=== PATIENT | male | born 1950 | race Caucasian/White ===

== ENCOUNTER 2017-09-22 15:50 | Observation (INO) | payer MEDICARE, OTHER, SELFPAY ==
[2017-09-22] VITALS (7 sets, daily range): BP systolic 119–192; BP diastolic 68–102; PULSE 55–74; RESP 10–20; TEMP 36.7–36.8; O2SAT 94–99; BMI 31.3
--- NOTE | 2017-09-22 16:12 | ED.CHESTPAIN ---
HPI - Chest Pain General Chief Complaint: Chest Pain Stated Complaint: CHEST PAINS Time Seen by Provider: 09/22/17 15:52 Source: patient Mode of arrival: ambulatory Limitations: no limitations History of Present Illness HPI narrative: 67-year-old male with history of hypertension presents to the emergency department with a chief complaint of left anterior chest pain with radiation to his shoulder. He had a few episodes of the pain while at rest yesterday and a few more earlier today but his pain has been persistent and more intense since about 2 o'clock. He denies provocation or palliation of his pain. He denies associated symptoms such as dizziness, weakness or lightheadedness. He denies shortness of breath, diaphoresis or nausea. He took 2 full-dose aspirin prior to coming in and called his primary who directed him here. He did recently drive from here to [facility] and back after buying a new motor home complaint: chest pain Onset (ago): hour(s) Duration: intermittent Onset: during rest Pain location: left chest Severity: moderate Quality: aching and heaviness Pain radiation: none Relieving factors: nothing Exacerbating factors: nothing Context: recent travel Treatments prior to arrival chest pain: aspirin Related Data Home Medications Medication Instructions Recorded Confirmed ASPIRIN (#ASPIRIN CHILDREN'S) #0 06/14/11 lisinopril 20 mg PO QDAY #0 05/31/16 Allergies Allergy/AdvReac Type Severity Reaction Status Date / Time No Known Drug Allergies Allergy Verified 09/22/17 16:09 Review of Systems Review of Systems All systems reviewed & are unremarkable except as noted in HPI and below Constitutional Denies chills, Denies fever(s), Denies lethargy and Denies weakness Eyes Denies change in vision, Denies eye discharge, Denies irritation and Denies loss of vision ENT Ears, Nose, Mouth, and Throat: Denies change in voice, Denies neck pain and Denies sore throat Cardiovascular Reports chest pain, Denies irregular heart rhythm, Denies lightheadedness, Denies palpitations, Denies dyspnea, Denies dyspnea on exertion and Denies orthopnea Respiratory Denies cough, Denies dyspnea, Denies dyspnea on exertion and Denies wheezing Gastrointestinal Gastrointestinal: Denies abdominal pain, Denies change in bowel habits, Denies diarrhea, Denies nausea and Denies vomiting Genitourinary Denies hematuria, Denies flank pain, Denies urinary incontinence and Denies urinary urgency Musculoskeletal Denies neck pain Integumentary/Breasts Denies pruritus, Denies erythema, Denies rash and Denies wounds Neurologic Denies confusion, Denies loss of vision and Denies weakness Psychiatric Denies anxiety, Denies confusion, Denies depression, Denies homicidal ideation and Denies suicidal ideation Endocrine Denies palpitations Hematologic/Lymphatic Denies easy bruising Allergic/Immunologic Denies wheezing PFSH Medical History Anemia (Acute) HTN (hypertension) (Acute) Shingles (Acute) Exam Narrative Exam Narrative: 67-year-old male resting comfortably in no obvious distress Initial Vital Signs Initial Vital Signs: Vital Signs Temperature 98.2 F 09/22/17 16:05 Pulse Rate 74 09/22/17 16:05 Respiratory Rate 20 09/22/17 16:05 Blood Pressure 192/102 H 09/22/17 16:05 Pulse Oximetry 94 09/22/17 16:05 Const General: cooperative, well developed and anxious Nutritional Appearance: well nourished Orientation: alert, awake, oriented x3 and not confused HENRI Head: normocephalic and atraumatic Ears: external ears normal and TM's normal bilaterally Nose: external nose normal and No nasal discharge Face and sinus: sinuses nontender, face symmetric, no sinus tenderness and No dry mucous membranes Mouth: oral mucosae normal and moist mucous membranes Teeth and gingiva: dentition normal Throat: tonsils normal and uvula midline Chest Chest: normal inspection of the chest Cardio Rate: regular rate Rhythm: regular rhythm Heart Sounds: no click, no gallops, no murmurs and no rubs Pulses: normal peripheral pulses GI Inspection: non-distended Palpation: soft, no hepatosplenomegaly, No guarding, No pulsatile mass and No tender Auscultation: normal bowel sounds Back/Spine/Pelvis Back: No CVA tenderness Cervical Spine: cervical ROM normal and No pain with cervical ROM Thoracic/Lumbar Spine: thoracic and lumbar spine normal to inspection Skin General: no rashes or lesions noted, No jaundice and No petechiae Extrem General: full ROM, no clubbing, cyanosis or edema, no pedal edema and no calf tenderness Scores HEART Score Heart Score history: Moderately Suspicious Heart Score EKG: Normal Heart Score Age: > or = 65 years old Heart Score risk factors: 1-2 risk factors Heart Score troponin: < or = to normal limit Heart Score Total: 4 Course Orders Ordered: ED Orders 09/22/17 16:00 Complete Blood Count AUTO DIFF Stat Comprehensive Metabolic Panel Stat D Dimer Stat Lipase Stat Troponin with CK Cardiac Panel Stat 09/22/17 16:11 XR chest 1V Stat EKG-12 Lead Stat Sodium Chloride (Normal Saline 0.9%) 1,000 mls @ 150 mls/hr IV CONT LAUREEN Nitroglycerin (Nitrostat) 0.4 mg SL [id number] PRN PRN Reason: Chest Pain Discontinued Medications Aspirin (Aspirin Chew) 324 mg PO NOW ONE Stop: 09/22/17 16:12 Last Admin: 09/22/17 16:20 Dose: Not Given Consultations Consultation #1: Dr. Rg has seen the patient at the bedside and is happy to bring onto his service Time: 17:28 Vital Signs - 8 hr 09/22/17 16:05 09/22/17 16:30 09/22/17 17:00 Temperature 98.2 F Pulse Rate 74 60 59 L Respiratory Rate 20 11 L 10 L Blood Pressure 192/102 H Blood Pressure [Left Arm] 177/83 H 158/77 H Pulse Oximetry 94 97 97 09/22/17 17:48 09/22/17 17:52 Temperature Pulse Rate 55 L 55 L Respiratory Rate 16 Blood Pressure 123/75 H Blood Pressure [Left Arm] 123/75 H Pulse Oximetry 99 MDM - Chest Pain Differential Diagnosis Likely unstable angina pectoris, atypical chest pain, st elevation myocardial infarction, costochondritis and chest pain Medical Records Data Attestation: I reviewed the patient's medical records. Lab Data Result diagrams: 09/22/17 16:00 09/22/17 16:00 Lab Results 09/22/17 09/22/17 09/22/17 Range/Units 16:00 16:00 16:00 WBC 4.9 (4.5-11.0) X10^3/uL RBC 3.28 L (4.5-5.9) X10^6/uL Hgb 11.9 L (13.5-17.5) g/dL Hct 33.7 L (41-53) % MCV 102.5 H (80-100) fL MCH 36.2 H (26-34) PG MCHC 35.3 (30-36) % RDW 14.5 (11.6-14.8) % Plt Count 316 (150-400) X10^3/uL Neut % (Auto) 39.1 L (50-75) % Lymph % (Auto) 53.1 H (25-40) % [place] % (Auto) 6.4 (3-14) % Eos % (Auto) 1.1 L (2-4) % Baso % (Auto) 0.3 (0-2) % Neut # (Auto) 1900 L (7375-4584) /uL D-Dimer < 200 (<230) ng/mL Sodium 144 (137-145) mmol/L Potassium 4.2 (3.4-5.1) mmol/L Chloride 107 (98-107) mmol/L Carbon Dioxide 24 (22-32) mmol/L BUN 22 H (9-20) mg/dL Creatinine 1.10 (0.66-1.25) mg/dL Estimated GFR > 60.0 (>60) mL/min BUN/Creatinine Ratio 20.0 (6-22) Glucose 100 (80-110) mg/dL Calcium 9.0 (8.4-10.2) mg/dL Total Bilirubin 0.4 (0.2-1.3) mg/dL AST 33 (17-59) IU/L ALT 37 (21-72) IU/L Alkaline Phosphatase 66 (38-126) U/L Total Creatine Kinase 22 L (55-170) U/L Troponin I < 0.012 (0.01-0.034) ng/mL Total Protein 9.8 H* (6.3-8.2) g/dL Albumin 4.1 (3.5-5.0) g/dL Globulin 5.7 H (1.7-4.1) g/dL Albumin/Globulin Ratio 0.7 L (1.0-2.8) Lipase 64 (23-300) U/L Imaging Data Chest x-ray: Radiologist's impression: PROCEDURE: XR CHEST 1V INDICATIONS: Chest Pain TECHNIQUE: One view of the chest was acquired. COMPARISON: [facility], , CHEST 2 VIEW, 06/14/2011, 11:35. FINDINGS: Surgical changes and devices: None. Lungs and pleura: No pleural effusions or pneumothorax. Lungs are clear. Mediastinum: Mediastinal contours appear normal. Heart size is normal. Bones and chest wall: No suspicious bony lesions. Overlying soft tissues appear unremarkable. IMPRESSION: No acute cardiopulmonary abnormality Dictated by: Francisco Butt M.D. on 09/22/2017 at 16:23 Approved by: Francisco Butt M.D. on 09/22/2017 at 16:23 ECG Data Attestation: I personally reviewed and interpreted this ECG as follows: Prior ECG tracings: available for review Interpretation: Normal sinus rhythm at 64 without signs of ischemia or ectopy. No ST segmental change. No T-wave inversion or hyper acuity Discharge Plan Departure Patient Disposition: Admitted as Observation Clinical Impression: Chest pain Interventions: ED Discharge Assessment Last Done: 09/22/17 17:52 Admit Date/Time: 09/22/17 17:52 Admit Provider: Dawood Rg
[2017-09-22 16:24] LABS: Add Manual Diff / Slide Review NO; Basophils Percent Auto 0.3 % (0-2); Eosinophils Percent Auto 1.1 % (2-4); Hematocrit 33.7 % (41-53); Hemoglobin 11.9 g/dL (13.5-17.5); Lymphocytes Percent Auto 53.1 % (25-40); Mean Corpuscular HGB Conc 35.3 % (30-36); Mean Corpuscular Hemoglobin 36.2 PG (26-34); Mean Corpuscular Volume 102.5 fL (80-100); Monocytes Percent Auto 6.4 % (3-14); Neutrophils Absolute Auto 1900 /uL (3000-5900); Neutrophils Percent Auto 39.1 % (50-75); Platelet Count 316 X10^3/uL (150-400); Red Blood Cell Count 3.28 X10^6/uL (4.5-5.9); Red Cell Distribution Width 14.5 % (11.6-14.8); White Blood Cell Count 4.9 X10^3/uL (4.5-11.0)
[2017-09-22 16:30] LABS: Alanine Aminotransferase 37 IU/L (21-72); Albumin 4.1 g/dL (3.5-5.0); Albumin Globulin Ratio 0.7 (1.0-2.8); Alkaline Phosphatase 66 U/L (38-126); Aspartate Aminotransferase 33 IU/L (17-59); Bilirubin Total 0.4 mg/dL (0.2-1.3); Blood Urea Nitrogen 22 mg/dL (9-20); Carbon Dioxide 24 mmol/L (22-32); Chloride 107 mmol/L (98-107); Creatine Kinase 22 U/L (55-170); Estimated Glomerular Filt Rate > 60.0 mL/min (>60); Globulin 5.7 g/dL (1.7-4.1); Glucose 100 mg/dL (80-110); HEMOLYSIS < 15 (0-50); Lipase 64 U/L (23-300); Potassium 4.2 mmol/L (3.4-5.1); Sodium 144 mmol/L (137-145)
[2017-09-22 16:36] LABS: D Dimer < 200 ng/mL (<230)
[2017-09-22 16:43] LABS: Total Protein 9.8 g/dL (6.3-8.2)
[2017-09-22 16:44] LABS: Troponin I < 0.012 ng/mL (0.01-0.034)
--- NOTE | 2017-09-22 18:07 | PM.HP.1 ---
History of Present Illness Date Patient Seen: 09/22/17 Time Patient Seen: 18:07 Chief complaint: CHEST PAINS Narrative: Patient is a 67-year-old male with history of hypertension, hyperlipidemia presented to emergency department with recurrent chest pain. Starting yesterday afternoon he began to experience intermittent left-sided chest discomfort. Episodes would last up to 20 min and of moderate intensity. There was some radiation to the shoulder and neck. It is described as a pressure sensation. The discomfort subsided during the night. This morning he had more recurrence of the pain which again occurred intermittently during the day prompting him to come to the ER for evaluation. Patient has not had similar pain in the past. He denies exertional symptoms. He felt a little warm with these episodes but no diaphoresis, nausea or, vomiting or epigastric pain. He quit smoking about 10 years ago. Father with coronary disease history and in 70s. Patient History Medical History Anemia (Acute) HTN (hypertension) (Acute) Hyperlipidemia (Acute) Shingles (Acute) Family & Social History Safety & Behavioral: Feels Safe in Current Yes Environment Been Physically Hurt or No Threatened By a Person Tobacco & Substance use: alcohol intake frequency a few times a week Substance Use Type does not use Meds Home Medications Medication Instructions Recorded Confirmed Type ASPIRIN (#ASPIRIN CHILDREN'S) #0 06/14/11 History lisinopril 20 mg PO QDAY #0 05/31/16 History Allergies Allergy/AdvReac Type Severity Reaction Status Date / Time No Known Drug Allergies Allergy Verified 09/22/17 16:09 Review of Systems Review of Systems All systems reviewed & are unremarkable except as noted in HPI and below Exam Vital Signs (past 8 hours): Vital Signs - 8 hr 09/22/17 16:05 09/22/17 16:30 09/22/17 17:00 Temperature 98.2 F Pulse Rate 74 60 59 L Respiratory Rate 20 11 L 10 L Blood Pressure 192/102 H Blood Pressure [Left Arm] 177/83 H 158/77 H Pulse Oximetry 94 97 97 09/22/17 17:48 09/22/17 17:52 Temperature Pulse Rate 55 L 55 L Respiratory Rate 16 Blood Pressure 123/75 H Blood Pressure [Left Arm] 123/75 H Pulse Oximetry 99 Pulse Oximetry 99 Oxygen Delivery Method Room Air Narrative Exam Narrative: GENERAL: This is an alert well-nourished, well-developed patient, in no apparent distress. HEAD: Atraumatic. Normocephalic. EYES: Pupils equal, round and reactive. Extraocular motions intact. No scleral icterus. No injection or drainage. OROPHARYNX: moist mucosa NECK: Trachea midline. No JVD or lymphadenopathy. CARDIOVASCULAR: Regular rate and rhythm without murmurs, gallops, or rubs. RESPIRATORY: Clear to auscultation bilaterally. GASTROINTESTINAL: Abdomen nondistended, soft, non-tender. No hepato-splenomegaly, or palpable masses. EXTREMITIES: No edema. NEUROLOGICAL: Alert, well oriented, speech is intact, normal bilateral upper and lower extremity strength SKIN: warm, dry, no rash Objective Labs Result Diagrams: 09/22/17 16:00 09/22/17 16:00 Labs: EKG: Normal sinus rhythm, no significant ST or T-wave abnormality. Repeat EKG the same. Chest x-ray: No acute findings Laboratory Results - last 24 hr 09/22/17 09/22/17 09/22/17 16:00 16:00 16:00 WBC 4.9 RBC 3.28 L Hgb 11.9 L Hct 33.7 L MCV 102.5 H MCH 36.2 H MCHC 35.3 RDW 14.5 Plt Count 316 Neut % (Auto) 39.1 L Lymph % (Auto) 53.1 H [place] % (Auto) 6.4 Eos % (Auto) 1.1 L Baso % (Auto) 0.3 Neut # (Auto) 1900 L D-Dimer < 200 Sodium 144 Potassium 4.2 Chloride 107 Carbon Dioxide 24 BUN 22 H Creatinine 1.10 Estimated GFR > 60.0 BUN/Creatinine Ratio 20.0 Glucose 100 Calcium 9.0 Total Bilirubin 0.4 AST 33 ALT 37 Alkaline Phosphatase 66 Total Creatine Kinase 22 L Troponin I < 0.012 Total Protein 9.8 H* Albumin 4.1 Globulin 5.7 H Albumin/Globulin Ratio 0.7 L Lipase 64 Assessment & Plan Plan: Assessment/Plan Narrative: 1. Chest pain: Patient with 24 hr history of intermittent chest pain episodes lasting 20 min. He has cardiac risk factors of hypertension, hyperlipidemia. Initial EKG and enzymes negative x2. He is currently pain-free. He is admitted to observation services to determine whether this is cardiac nature of chest pain. Plan: Telemetry monitoring, repeat 8 hr troponin x2, EKG for recurrent chest pain, EKG in a.m.. Patient received aspirin in ED. Continue on his lisinopril per home routine. Check lipid panel.
--- NOTE | 2017-09-22 18:15 | P.HP_ITS ---
History of Present Illness Date Patient Seen: 09/22/17 Time Patient Seen: 18:07 Chief complaint: CHEST PAINS Narrative: Patient is a 67-year-old male with history of hypertension, hyperlipidemia presented to emergency department with recurrent chest pain. Starting yesterday afternoon he began to experience intermittent left-sided chest discomfort. Episodes would last up to 20 min and of moderate intensity. There was some radiation to the shoulder and neck. It is described as a pressure sensation. The discomfort subsided during the night. This morning he had more recurrence of the pain which again occurred intermittently during the day prompting him to come to the ER for evaluation. Patient has not had similar pain in the past. He denies exertional symptoms. He felt a little warm with these episodes but no diaphoresis, nausea or, vomiting or epigastric pain. He quit smoking about 10 years ago. Father with coronary disease history and in 70s. Patient History Medical History Anemia (Acute) HTN (hypertension) (Acute) Hyperlipidemia (Acute) Shingles (Acute) Family & Social History Safety & Behavioral: Feels Safe in Current Yes Environment Been Physically Hurt or No Threatened By a Person Tobacco & Substance use: alcohol intake frequency a few times a week Substance Use Type does not use Meds Home Medications Medication Instructions Recorded Confirmed Type ASPIRIN (#ASPIRIN CHILDREN'S) #0 06/14/11 History lisinopril 20 mg PO QDAY #0 05/31/16 History Allergies Allergy/AdvReac Type Severity Reaction Status Date / Time No Known Drug Allergies Allergy Verified 09/22/17 16:09 Review of Systems Review of Systems All systems reviewed & are unremarkable except as noted in HPI and below Exam Vital Signs (past 8 hours): Vital Signs - 8 hr 3 09/22/17 16:05 09/22/17 16:30 09/22/17 17:00 Temperature 98.2 F Pulse Rate 74 60 59 L Respiratory Rate 20 11 L 10 L Blood Pressure 192/102 H Blood Pressure [Left Arm] 177/83 H 158/77 H Pulse Oximetry 94 97 97 3 09/22/17 17:48 09/22/17 17:52 Temperature Pulse Rate 55 L 55 L Respiratory Rate 16 Blood Pressure 123/75 H Blood Pressure [Left Arm] 123/75 H Pulse Oximetry 99 Pulse Oximetry 99 Oxygen Delivery Method Room Air Narrative Exam Narrative: GENERAL: This is an alert well-nourished, well-developed patient , in no apparent distress. HEAD: Atraumatic. Normocephalic. EYES: Pupils equal, round and reactive. Extraocular motions intact. No scleral icterus. No injection or drainage. OROPHARYNX: moist mucosa NECK: Trachea midline. No JVD or lymphadenopathy. CARDIOVASCULAR: Regular rate and rhythm without murmurs, gallops, or rubs. RESPIRATORY: Clear to auscultation bilaterally. GASTROINTESTINAL: Abdomen nondistended, soft, non-tender. No hepato- splenomegaly, or palpable masses. EXTREMITIES: No edema. NEUROLOGICAL: Alert, well oriented, speech is intact, normal bilateral upper and lower extremity strength SKIN: warm, dry, no rash Objective Labs Result Diagrams: 09/22/17 16:00 09/22/17 16:00 Labs: EKG: Normal sinus rhythm, no significant ST or T-wave abnormality. Repeat EKG the same. Chest x-ray: No acute findings Laboratory Results - last 24 hr 09/22/17 09/22/17 09/22/17 16:00 16:00 16:00 WBC 4.9 RBC 3.28 L Hgb 11.9 L Hct 33.7 L MCV 102.5 H MCH 36.2 H MCHC 35.3 RDW 14.5 Plt Count 316 Neut % (Auto) 39.1 L Lymph % (Auto) 53.1 H [place] % (Auto) 6.4 Eos % (Auto) 1.1 L Baso % (Auto) 0.3 Neut # (Auto) 1900 L D-Dimer < 200 Sodium 144 Potassium 4.2 Chloride 107 Carbon Dioxide 24 BUN 22 H Creatinine 1.10 Estimated GFR > 60.0 BUN/Creatinine Ratio 20.0 Glucose 100 Calcium 9.0 Total Bilirubin 0.4 AST 33 ALT 37 Alkaline Phosphatase 66 Total Creatine Kinase 22 L Troponin I < 0.012 Total Protein 9.8 H* Albumin 4.1 Globulin 5.7 H Albumin/Globulin Ratio 0.7 L Lipase 64 Assessment & Plan Plan: Assessment/Plan Narrative: 1. Chest pain: Patient with 24 hr history of intermittent chest pain episodes lasting 20 min. He has cardiac risk factors of hypertension, hyperlipidemia. Initial EKG and enzymes negative x2. He is currently pain-free. He is admitted to observation services to determine whether this is cardiac nature of chest pain. Plan: Telemetry monitoring, repeat 8 hr troponin x2, EKG for recurrent chest pain, EKG in a.m.. Patient received aspirin in ED. Continue on his lisinopril per home routine. Check lipid panel.
[2017-09-22 19:25] LABS: Cholesterol 205 mg/dL (140-199); HDL Cholesterol 25 mg/dL (40-60); LDL Cholesterol Calculated 141 mg/dL (<100); Triglycerides 193 mg/dL (35-150)
[2017-09-22 23:41] LABS: Troponin I < 0.012 ng/mL (0.01-0.034)
[2017-09-23 00:16] VITALS: O2SAT 96
[2017-09-23 00:17] VITALS: BP 130/66; PULSE 60; RESP 15; TEMP 36.4; O2SAT 96
[2017-09-23 05:36] VITALS: BP 139/95; PULSE 60; RESP 18; O2SAT 94
[2017-09-23 07:42] VITALS: BP 139/91; PULSE 55; RESP 16; TEMP 36.2; O2SAT 98
[2017-09-23] MEDS: ASPIRIN EC 81 MG TABLET PO (08:14)
[2017-09-23] MEDS: LISINOPRIL 20 MG TABLET PO (08:14)
[2017-09-23 08:45] LABS: Troponin I < 0.012 ng/mL (0.01-0.034)
--- NOTE | 2017-09-23 10:45 | PC.NURSE ---
discharge instructions reviewed with patient, patient states understanding and has no further questions or concerns. iv and tele dc'd. labs drawn prior to discharge as ordered by Dr. Rg. Patient instructed to schedule follow up with pcp in 1 week. patient escorted out by [employer], ambulatory, with all belongings.
--- NOTE | 2017-09-23 12:06 | CM.DANOTE ---
DCP: assessment: Case received, EMR reviewed and spoke with CORRINA Rachel. DCP template completed with info currently available. Pt is a 67 year old male who admitted yesterday evening to care of hospitalist team after experiencing s/s chest pain. PCP: Dr. Mijares Payer: Medicare and [facility]. Went to room to check in with pt but he had already left. CORRINA Rachel notes pt was very eager/impatient to see Dr. Rg this morning and once ok'd for d/c he wished to leave [facility]. He did go home at 1048 with his and will see PCP in a week.
--- NOTE | 2017-09-23 12:46 | PM.DS.1 ---
History of Present Illness Chief complaint: CHEST PAINS Narrative: Patient is a 67-year-old male with history of hypertension, hyperlipidemia presented to emergency department with recurrent chest pain. Starting yesterday afternoon he began to experience intermittent left-sided chest discomfort. Episodes would last up to 20 min and of moderate intensity. There was some radiation to the shoulder and neck. It is described as a pressure sensation. The discomfort subsided during the night. This morning he had more recurrence of the pain which again occurred intermittently during the day prompting him to come to the ER for evaluation. Patient has not had similar pain in the past. He denies exertional symptoms. He felt a little warm with these episodes but no diaphoresis, nausea or, vomiting or epigastric pain. He quit smoking about 10 years ago. Father with coronary disease history and in 70s. Discharge Providers Date of admission: 09/22/17 17:52 Discharge provider: Dawood Rg MD Summary Discharge Diagnosis: 1. Chest pain syndrome 2. Hyperlipidemia 3. Chronic anemia, rule out multiple myeloma or related disorder Hospital Course: Patient had serial negative enzymes and EKGs. Telemetry remained normal. He did not have recurrence of his chest discomfort overnight and feels ready to go home this morning. He has significant dyslipidemia with HDL 25 and LDL 140. He is advised to discuss starting on statin therapy with Dr. Mijares. He is advised to have outpatient stress test. Instructed to return to emergency department for any recurrent chest discomfort. In addition, patient has chronic macrocytic anemia. He was noted to have very high serum protein 9.8. Additional blood work ordered for immunofixation, electrophoresis and serum free light chain assay to evaluate for multiple myeloma and related disorders. Patient is informed of this additional blood work and to follow up with Dr. Mijares to review these results. Status at Discharge Functional status at discharge: independent ambulation Overall status at discharge: patient is back to baseline Exam Vital Signs (past 8 hours): Vital Signs - 8 hr 09/23/17 05:36 09/23/17 07:42 Temperature 97.2 F L Pulse Rate 60 55 L Respiratory Rate 18 16 Blood Pressure 139/95 H 139/91 H Pulse Oximetry 94 98 Pulse Oximetry 98 Oxygen Delivery Method Room Air Oxygen Flow Rate 0 Objective Labs Result Diagrams: 09/22/17 16:00 09/22/17 16:00 Labs: Laboratory Results - last 24 hr 09/22/17 09/22/17 09/22/17 16:00 16:00 16:00 WBC 4.9 RBC 3.28 L Hgb 11.9 L Hct 33.7 L MCV 102.5 H MCH 36.2 H MCHC 35.3 RDW 14.5 Plt Count 316 Neut % (Auto) 39.1 L Lymph % (Auto) 53.1 H [place] % (Auto) 6.4 Eos % (Auto) 1.1 L Baso % (Auto) 0.3 Neut # (Auto) 1900 L D-Dimer < 200 Sodium 144 Potassium 4.2 Chloride 107 Carbon Dioxide 24 BUN 22 H Creatinine 1.10 Estimated GFR > 60.0 BUN/Creatinine Ratio 20.0 Glucose 100 Calcium 9.0 Total Bilirubin 0.4 AST 33 ALT 37 Alkaline Phosphatase 66 Total Creatine Kinase 22 L Troponin I < 0.012 Total Protein 9.8 H* Albumin 4.1 Globulin 5.7 H Albumin/Globulin Ratio 0.7 L Triglycerides Cholesterol LDL Cholesterol, Calc HDL Cholesterol Lipase 64 09/22/17 09/22/17 09/23/17 16:00 23:11 07:14 WBC RBC Hgb Hct MCV MCH MCHC RDW Plt Count Neut % (Auto) Lymph % (Auto) [place] % (Auto) Eos % (Auto) Baso % (Auto) Neut # (Auto) D-Dimer Sodium Potassium Chloride Carbon Dioxide BUN Creatinine Estimated GFR BUN/Creatinine Ratio Glucose Calcium Total Bilirubin AST ALT Alkaline Phosphatase Total Creatine Kinase Troponin I < 0.012 < 0.012 Total Protein Albumin Globulin Albumin/Globulin Ratio Triglycerides 193 H Cholesterol 205 H LDL Cholesterol, Calc 141 H HDL Cholesterol 25 L Lipase Discharge Plan Discharge Plan Patient Disposition: Home, Self-Care Provider Discharge Instructions Diet: Diet as Tolerated Discharge Data Attending Provider: Dawood Rg Admit Date/Time: 09/22/17 17:52 Discharges patient from system. Discharge Date/Time: 09/23/17 10:35 Quality VTE Deep Vein Thrombosis/Pulmonary Embolism Present on Admission: No
[2017-09-26 16:05] LABS: Free Kappa/ Lambda Ratio 85.24 (0.26-1.65); Free Lambda 3.5 mg/L (5.7-26.3)
[2017-10-02 14:26] LABS: Abnormal Protein Band 1 3.5 g/dL (NONE DETECTED); Albumin 4.2 g/dL (3.8-4.8); Alpha 1 Globulin 0.3 g/dL (0.2-0.3); Alpha 2 Globulin 0.7 g/dL (0.5-0.9); Beta 1 Globulin 0.4 g/dL (0.4-0.6); Gamma Globulin 3.7 g/dL (0.8-1.7); Protein, Total 9.6 g/dL (6.1-8.1)
== END 2017-09-23 10:35 | disposition home or self-care (01) ==
LOC: ED 17:32 → AC 09-23 10:15
PROVIDERS: Admitting Provider Internal Medicine; Emergency Provider Emergency Medicine; Visit Provider Internal Medicine
DX: R07.9 Chest pain, unspecified (principal); I10 Essential (primary) hypertension; D64.9 Anemia, unspecified; E78.5 Hyperlipidemia, unspecified
CPT/HCPCS: 36415; 36591; 36592; 71045; 80053; 80061; 82550; 82553; 82784; 83690; 83883; 84155; 84165; 84484; 85025; 85379; 86334; 93005; 93041; 99283; 99285; G0378

== ENCOUNTER → 2017-10-14 10:31 | Outpatient (CLI) | payer MEDICARE, OTHER, SELFPAY ==
[2017-09-22 18:31] VITALS: BMI 31.3
[2017-10-14 10:53] LABS: Add Manual Diff / Slide Review NO; Basophils Percent Auto 0.3 % (0-2); Eosinophils Percent Auto 0.9 % (2-4); Hemoglobin 11.2 g/dL (13.5-17.5); Lymphocytes Percent Auto 57.7 % (25-40); Mean Corpuscular HGB Conc 35.1 % (30-36); Mean Corpuscular Hemoglobin 35.8 PG (26-34); Mean Corpuscular Volume 101.9 fL (80-100); Monocytes Percent Auto 5.4 % (3-14); Neutrophils Absolute Auto 1400 /uL (3000-5900); Neutrophils Percent Auto 35.7 % (50-75); Platelet Count 282 X10^3/uL (150-400); Red Blood Cell Count 3.14 X10^6/uL (4.5-5.9); Red Cell Distribution Width 14.4 % (11.6-14.8); White Blood Cell Count 3.8 X10^3/uL (4.5-11.0)
[2017-10-16 11:48] LABS: Beta-2-Microglobulin 4.12 mg/L (< 2.52)
== END ==
PROVIDERS: Visit Provider Internal Medicine
DX: D47.2 Monoclonal gammopathy (principal); D64.9 Anemia, unspecified
CPT/HCPCS: 36415; 82232; 85025

== ENCOUNTER → 2017-10-24 12:13 | Outpatient (CLI) | payer MEDICARE, OTHER, SELFPAY ==
[2017-09-22 18:31] VITALS: BMI 31.3
[2017-10-24 12:49] LABS: Add Manual Diff / Slide Review NO; Basophils Percent Auto 0.2 % (0-2); Eosinophils Percent Auto 0.7 % (2-4); Hematocrit 32.6 % (41-53); Hemoglobin 11.2 g/dL (13.5-17.5); Lymphocytes Percent Auto 52.4 % (25-40); Mean Corpuscular HGB Conc 34.3 % (30-36); Mean Corpuscular Hemoglobin 35.4 PG (26-34); Mean Corpuscular Volume 103.2 fL (80-100); Monocytes Percent Auto 5.4 % (3-14); Neutrophils Absolute Auto 2100 /uL (3000-5900); Neutrophils Percent Auto 41.3 % (50-75); Platelet Count 308 X10^3/uL (150-400); Red Blood Cell Count 3.16 X10^6/uL (4.5-5.9); White Blood Cell Count 5.1 X10^3/uL (4.5-11.0)
[2017-10-24 13:56] LABS: Vitamin B12 458 pg/mL (239-931)
== END ==
PROVIDERS: Visit Provider Internal Medicine
DX: D64.9 Anemia, unspecified (principal)
CPT/HCPCS: 36415; 82607; 85025

== ENCOUNTER → 2017-11-10 16:03 | Outpatient (CLI) | payer MEDICARE, OTHER, SELFPAY ==
[2017-09-22 18:31] VITALS: BMI 31.3
[2017-11-10 16:50] LABS: BUN Creatinine Ratio 23.3 (6-22); Blood Urea Nitrogen 28 mg/dL (9-20); Calcium 9.2 mg/dL (8.4-10.2); Carbon Dioxide 21 mmol/L (22-32); Chloride 107 mmol/L (98-107); Estimated Glomerular Filt Rate > 60.0 mL/min (>60); Glucose 166 mg/dL (80-110); HEMOLYSIS < 15 (0-50); Potassium 4.5 mmol/L (3.4-5.1); Sodium 141 mmol/L (137-145); Uric Acid 4.8 mg/dL (3.5-8.5)
== END ==
PROVIDERS: Visit Provider Internal Medicine Hematology
DX: C90.00 Multiple myeloma not having achieved remission (principal)
CPT/HCPCS: 36415; 80048; 84550

== ENCOUNTER → 2017-12-05 08:59 | Outpatient (CLI) | payer MEDICARE, OTHER, SELFPAY ==
[2017-09-22 18:31] VITALS: BMI 31.3
--- NOTE | 2017-12-05 | DI.RAD.S_ITS ---
PROCEDURE: XR RIBS RT 2V INDICATIONS: LOW BACK PAIN TECHNIQUE: 2 views of the right lower ribs were acquired. COMPARISON: None. FINDINGS: Surgical changes and devices: None. Bones and chest wall: No fractures or dislocations. No suspicious bony lesions. Overlying soft tissues appear unremarkable. Lungs and pleura: The visualized lung appears clear. No pleural effusions or pneumothorax are visible. IMPRESSION: No fracture found. No adjacent pneumothorax identified. If unusual symptoms persist followup delayed plain films may allow detection of nondisplaced rib fractures. Dictated by: Omer Velasco M.D. on 12/05/2017 at 10:14 Approved by: Omer Velasco M.D. on 12/05/2017 at 10:24
--- NOTE | 2017-12-05 | DI.RAD.S_ITS ---
PROCEDURE: XR LUMBAR SPINE 2-3V INDICATIONS: LOW BACK PAIN TECHNIQUE: 3 views of the lumbar spine were acquired. COMPARISON: [facility], CT, IVP (ABD & PEL WWO CONTRAST), 02/26/2016, 10:42. FINDINGS: Bones: 5 [id number] vertebrae are present. There is normal bony alignment except for slight retrolisthesis of L3 on L4. No vertebral body compression fractures. No suspicious bony lesions. Moderately severe degenerative disc disease and facet osteoarthritis from L3 inferiorly where spinal and foraminal stenosis likely is present. Soft tissues: Overlying bowel gas pattern is normal. No suspicious soft tissue calcifications. IMPRESSION: Degenerative disc disease along the thoracolumbar junction and lumbosacral spine is moderate in severity overall. Facet osteoarthritis is moderate at L1-2 and moderately severe at L3 through S1. Spinal and foraminal stenosis likely is present. Slight retrolisthesis is noted of L3 on L4. Dictated by: Omer Velasco M.D. on 12/05/2017 at 9:57 Approved by: Omer Velasco M.D. on 12/05/2017 at 10:14
== END ==
PROVIDERS: PCP Internal Medicine Hematology & Oncology; Visit Provider Internal Medicine
DX: M51.35 Other intervertebral disc degeneration, thoracolumbar region (principal); M51.37 Other intervertebral disc degeneration, lumbosacral region; M47.816 Spondylosis without myelopathy or radiculopathy, lumbar region; M47.817 Spondylosis without myelopathy or radiculopathy, lumbosacral region; M54.5 Low back pain
CPT/HCPCS: 71100; 72100

== ENCOUNTER → 2018-02-16 14:46 | Outpatient (CLI) | payer MEDICARE, OTHER, SELFPAY ==
[2017-09-22 18:31] VITALS: BMI 31.3
--- NOTE | 2018-02-16 | DI.MRI.S_ITS ---
PROCEDURE: MR ANKLE LT WO CON INDICATIONS: LEFT HEEL/ ACHILLES PAIN TECHNIQUE: Noncontrast sagittal T1 spin echo and T2 fast spin echo with fat saturation, axial proton density fast spin echo and T2 fast spin echo with fat saturation, coronal T1 spin echo and T2 fast spin echo with fat saturation through the ankle/hindfoot. COMPARISON: None. FINDINGS: Image quality: Excellent. Bones and joints: No bone marrow contusions or fractures. No hindfoot coalitions. No osteochondral injuries of the talar dome. No pathologic joint effusions. Medial structures: The posterior tibialis, flexor digitorum longus, and flexor hallucis longus tendons are intact. Minimal fluid adjacent to the posterior tibialis and flexor hallux longus tendon. The posterior tibial neurovascular bundle appears normal within the tarsal tunnel, without extrinsic mass effect. The deep layer (anterior and posterior tibiotalar ligaments) and superficial layer (tibionavicular, tibiospring, and tibiocalcaneal ligaments) of the deltoid ligament appear normal. The spring ligament components (superomedial calcaneonavicular, medioplantar oblique calcaneonavicular, and inferoplantar longitudinal ligaments) are intact. Lateral structures: The anterior talofibular, calcaneofibular, and posterior talofibular ligaments appear intact. More superiorly, the anterior and posterior tibiofibular ligaments appear intact, as is the intermalleolar ligament. The tibiofibular syndesmosis is normal in width at 2 mm or less. The peroneus longus and brevis tendons demonstrate normal location and morphology. Adjacent bony peroneal tubercle and retrotrochlear prominence are normal in size. The sinus tarsi demonstrates normal fatty signal, without edema, fibrosis, or cyst formation. Visualized sinus tarsi components (cervical ligament, interosseous talocalcaneal ligament, roots of the inferior extensor retinaculum) appear normal. The calcaneonavicular and calcaneocuboid components of the bifurcate ligament appear intact. The dorsal calcaneocuboid ligament appears intact. Anterior structures: The tibialis anterior, extensor hallucis longus, and extensor digitorum longus tendons appear intact. The dorsal talonavicular ligament appears intact. Posterior and plantar structures: Achilles tendon is mildly thickened at its insertion and there is adjacent soft tissue edema as well as mild internal signal change keeping with tendinopathy. Medial and lateral bands of the plantar fascia are of normal thickness. No abductor digiti quinti muscle atrophy to suggest Bridges neuropathy. IMPRESSION: Mild insertional Achilles tendinopathy. Minimal posterior tibialis and flexor houses longus tenosynovitis. Dictated by: Gabe Casiano M.D. on 02/16/2018 at 16:36 Approved by: Gabe Casiano M.D. on 02/16/2018 at 16:40
--- NOTE | 2018-02-16 | DI.MRI.S_ITS ---
PROCEDURE: MR ANKLE RT WO CON INDICATIONS: ACHILLES TENDONITIS TECHNIQUE: Noncontrast sagittal T1 spin echo and T2 fast spin echo with fat saturation, axial proton density fast spin echo and T2 fast spin echo with fat saturation, coronal T1 spin echo and T2 fast spin echo with fat saturation through the ankle/hindfoot. COMPARISON: [facility], MR, MR ANKLE LT WO CON, 02/16/2018, 15:17. FINDINGS: Image quality: Excellent. Bones and joints: No bone marrow contusions or fractures. No hindfoot coalitions. Osteochondral signal change involving the lateral talar dome this measures approximately 4 mm on coronal pulse sequences. No pathologic joint effusions. Medial structures: The posterior tibialis, flexor digitorum longus, and flexor hallucis longus tendons are intact. Trace fluid adjacent to the posterior tibialis tendon. The posterior tibial neurovascular bundle appears normal within the tarsal tunnel, without extrinsic mass effect. The deep layer (anterior and posterior tibiotalar ligaments) and superficial layer (tibionavicular, tibiospring, and tibiocalcaneal ligaments) of the deltoid ligament appear normal. The spring ligament components (superomedial calcaneonavicular, medioplantar oblique calcaneonavicular, and inferoplantar longitudinal ligaments) are intact. Lateral structures: The anterior talofibular, calcaneofibular, and posterior talofibular ligaments appear intact. More superiorly, the anterior and posterior tibiofibular ligaments appear intact, as is the intermalleolar ligament. The tibiofibular syndesmosis is normal in width at 2 mm or less. The peroneus longus and brevis tendons demonstrate normal location and morphology. Adjacent bony peroneal tubercle and retrotrochlear prominence are normal in size. The sinus tarsi demonstrates normal fatty signal, without edema, fibrosis, or cyst formation. Visualized sinus tarsi components (cervical ligament, interosseous talocalcaneal ligament, roots of the inferior extensor retinaculum) appear normal. The calcaneonavicular and calcaneocuboid components of the bifurcate ligament appear intact. The dorsal calcaneocuboid ligament appears intact. Anterior structures: The tibialis anterior, extensor hallucis longus, and extensor digitorum longus tendons appear intact. The dorsal talonavicular ligament appears intact. Posterior and plantar structures: Achilles tendon is thickened at the insertion, and there is internal signal changes well as adjacent soft tissue edema. Medial and lateral bands of the plantar fascia are of normal thickness. No abductor digiti quinti muscle atrophy to suggest Bridges neuropathy. IMPRESSION: Insertional Achilles tendinopathy. Mild posterior tibialis tenosynovitis. Lateral talar dome osteochondral defect. Dictated by: Gabe Casiano M.D. on 02/16/2018 at 16:40 Approved by: Gabe Casiano M.D. on 02/16/2018 at 16:45
== END ==
PROVIDERS: PCP Internal Medicine Hematology; Visit Provider Internal Medicine
DX: M76.61 Achilles tendinitis, right leg (principal); M25.572 Pain in left ankle and joints of left foot; M65.872 Other synovitis and tenosynovitis, left ankle and foot; M65.871 Other synovitis and tenosynovitis, right ankle and foot; M21.961 Unspecified acquired deformity of right lower leg
CPT/HCPCS: 73721

== ENCOUNTER → 2018-02-27 14:14 | Outpatient (CLI) | payer MEDICARE, OTHER, SELFPAY ==
[2017-09-22 18:31] VITALS: BMI 31.3
[2018-02-27 14:42] LABS: Add Manual Diff / Slide Review NO; Basophils Percent Auto 0.2 % (0-2); Eosinophils Percent Auto 3.5 % (2-4); Hematocrit 39.2 % (41-53); Hemoglobin 13.2 g/dL (13.5-17.5); Lymphocytes Percent Auto 24.9 % (25-40); Mean Corpuscular HGB Conc 33.6 % (30-36); Mean Corpuscular Hemoglobin 31.7 PG (26-34); Mean Corpuscular Volume 94.2 fL (80-100); Monocytes Percent Auto 13.6 % (3-14); Neutrophils Absolute Auto 4600 /uL (3000-5900); Neutrophils Percent Auto 57.8 % (50-75); Platelet Count 294 X10^3/uL (150-400); Red Blood Cell Count 4.16 X10^6/uL (4.5-5.9); Red Cell Distribution Width 14.7 % (11.6-14.8); White Blood Cell Count 7.9 X10^3/uL (4.5-11.0)
[2018-02-27 14:54] LABS: Alanine Aminotransferase 32 IU/L (21-72); Albumin Globulin Ratio 1.5 (1.0-2.8); Alkaline Phosphatase 69 U/L (38-126); Aspartate Aminotransferase 21 IU/L (17-59); BUN Creatinine Ratio 16.7 (6-22); Bilirubin Total 0.2 mg/dL (0.2-1.3); Blood Urea Nitrogen 15 mg/dL (9-20); Calcium 8.8 mg/dL (8.4-10.2); Carbon Dioxide 26 mmol/L (22-32); Chloride 107 mmol/L (98-107); Estimated Glomerular Filt Rate > 60.0 mL/min (>60); Globulin 2.7 g/dL (1.7-4.1); Glucose 96 mg/dL (80-110); HEMOLYSIS < 15 (0-50); Lactate Dehydrogenase 401 U/L (313-618); Potassium 3.8 mmol/L (3.4-5.1); Sodium 143 mmol/L (137-145); Total Protein 6.7 g/dL (6.3-8.2)
[2018-03-01 13:43] LABS: Free Kappa Light Chain 47.7 mg/L (3.3-19.4); Free Kappa/ Lambda Ratio 5.26 (0.26-1.65); Free Lambda 9.1 mg/L (5.7-26.3)
[2018-03-01 16:17] LABS: Immunoglobulin A 77 mg/dL (81-463); Immunoglobulin G, Quantitative 879 mg/dL (694-1618); Immunoglobulin M, Quantitative 8 mg/dL (48-271)
[2018-03-05 11:49] LABS: Abnormal Protein Band 1 0.5 g/dL (NONE DETECTED); Albumin 3.3 g/dL (3.8-4.8); Alpha 1 Globulin 0.3 g/dL (0.2-0.3); Alpha 2 Globulin 0.7 g/dL (0.5-0.9); Beta 1 Globulin 0.4 g/dL (0.4-0.6); Gamma Globulin 0.8 g/dL (0.8-1.7); Protein, Total 5.7 g/dL (6.1-8.1)
== END ==
PROVIDERS: PCP Internal Medicine Hematology; Visit Provider Internal Medicine Hematology & Oncology
DX: C90.00 Multiple myeloma not having achieved remission (principal)
CPT/HCPCS: 36415; 80053; 82232; 82784; 83615; 83883; 84155; 84165; 85025

== ENCOUNTER → 2018-04-03 14:14 | Outpatient (CLI) | payer MEDICARE, OTHER, SELFPAY ==
[2017-09-22 18:31] VITALS: BMI 31.3
== END ==
PROVIDERS: PCP Internal Medicine Hematology; Visit Provider Internal Medicine Hematology
DX: C90.00 Multiple myeloma not having achieved remission (principal)
CPT/HCPCS: 77080

== ENCOUNTER → 2018-09-28 10:37 | Oncology outpatient (ONC) | payer MEDICARE, OTHER, SELFPAY ==
[2017-09-22 18:31] VITALS: BMI 31.3
[2018-03-02 09:19] VITALS: BP 166/86; PULSE 60; RESP 18; TEMP 36.8; O2SAT 99
--- NOTE | 2018-03-02 09:51 | ONC.PN ---
PN -Subjective Interval history: Patient was diagnosed with intermediate risk IgG kappa multiple myeloma with a monoclonal IgG of 3.5 gram/deciliter and a serum free light chain that is greater than 100 and as well as a bone marrow biopsy that shows 85% infiltration by abnormal plasma cells. He had a free kappa of approximately 350 and free lambda of 3.5 with a ratio of 100 and baseline. He does have a mild anemia with a hemoglobin level of 11.5. His skeletal survey did not show any lytic lesions but his PET scan showed some areas of heterogeneous uptake in the marrow. Borderline normal creatinine 1.2 and calcium at baseline. 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 Fish panel negative for high risk abnormalities including chromosome 17 and chromosome 14 after a shins. Initial treatment with VRD was started on November 22, 2017 with Revlimid starting with a few days delay. Revlimid for initial cycle was 15 mg by mouth daily, three weeks on and 1 week off; Velcade subcutaneously 1.5 mg per sq meter weekly without break. Dexamethasone 20 mg orally once a week on the day of Velcade. Patient developed a generalized rash with 1 week after taking Revlimid which was then held. Revlimid was re-initiated at a lower dosage of 5 mg daily 2 weeks on and 1 week off since January 05, 2018 and he is able to tolerate without any rash. Patient also developed early onset of symptoms of peripheral neuropathy likely due to Velcade, therefore the dosage was reduced to 1.3 mg per sq meter on December and then per patient's request further decreased to 1 mg per sq meter since January 23, 2018. Patient presents here today for transfer of care from [facility] to [facility]. He is currently on the one-week treatment break. He is hoping that he is able to resume treatment next Monday. Clinically patient does not have any nausea vomiting no diarrhea no constipation no fever no chills no musculoskeletal pain. Overall he is a very active and functional pressure patient. - Patient Self-Reported Symptoms SR Constitution: Fatigue/Malaise SR eye issues: Vision changes, Eye pain SR ears, nose, mouth, throat issues: Ears ringing SR Cardiovascular issues: Extreme swelling SR Genitourinary issues: Frequent urination SR Musculoskeletal issues: Joint pain or swelling, Difficulty walking SR Neuro issues: Numbness or tingling - Additional ROS All systems PM: reviewed and no additional remarkable complaints except as stated Home Medications and Allergies Home Medications Medication Instructions Recorded Confirmed Type lisinopril 20 mg PO QDAY #0 05/31/16 03/02/18 History aspirin 325 mg PO DAILY 09/22/17 03/02/18 History dexamethasone 20 mg PO WEEKLY #30 tab 03/02/18 Rx lenalidomide 7.5 mg PO QDAY #14 cap 03/02/18 Rx lorazepam 0.5 mg PO Q6H PRN #60 tab 03/02/18 Rx Allergies Allergy/AdvReac Type Severity Reaction Status Date / Time No Known Drug Allergies Allergy Verified 09/22/17 16:09 Exam Vital signs: Last Vital Signs Temp 98.2 F 03/02/18 09:19 Pulse 60 03/02/18 09:19 Resp 18 03/02/18 09:19 BP 166/86 H 03/02/18 09:19 Pulse Ox 99 03/02/18 09:19 Narrative: Constitutional: WDWN, NAD, average body habitus, well groomed, pleasant and cooperative. HEENT: NCAT, EOMI, PERRLA, anicteric sclera, no hearing difficulty; Oral mucus membrane moist and without ulcers. Neck: Supple, symmetrical, and tracheal midline; No palpable thyromegaly and no palpable lymph nodes. Respiratory: No use of accessory muscles. Clear to auscultation, and no wheezes or rales or rubs. Cardiovascular: Regular rate and rhythm, S1 and S2 normal, no murmurs gallops or rubs. No JVD. No pitting edema of lower extremities. Abdomen: Soft, nontender, non-distended, bowel sounds normal, no palpable organomegaly, no hernia, no palpable masses. Lower extremities: No palpable pedal edema. Lymphatic: no palpable lymph nodes in the neck, axillae, or groins. Musculoskeletal: normal gait and station, no clubbing, no cyanosis, no pitting edema. Skin: no rashes, no ulcers, no petechiae Neurological: Awake and alert and oriented x3. CN II-XII grossly intact. No focal motor or sensory deficit. Psychiatric: Good judgment, good insight, normal affect, normal thought process, cooperative, no depression, no anxiety. Results - Labs Reviewed Assessment and Plan (1) Multiple myeloma Assessment: He has a multiple myeloma IgG kappa now on treatment with revlimid and dexamethasone. MM panel has showed a favorable response. Today, I discussed with the patient about the role of bone marrow transplant. Patient said that 99% of the time, he probably will not proceed with bone marrow transplant. He said he has done some research and has not found out that bone marrow transplant can change the course of the disease. But he is aware that bone marrow transplant have PFS benefit. We briefly talked with him about possible stem cell collection and storage for future use. Patient said that he is going to think about this. Plan: 1. After a long discussion with the patient, we decided to resume the RVD regimen next Monday. Patient now is in the off-week for the current cycle. The regimen that is going to resume will be as follows: Velcade 1 mg per sq meter on day 1, 8 and 15 of 21 day cycle; dexamethasone 20 mg once a week; and lenalidomide 7.5 mg once a day 2 weeks on and 1 week off. Patient is fully aware of the regimen. 2. For monitoring of her multiple myeloma status, we will perform CBC CMP and MM panel on the 1st day of every cycle. 3. Patient said that he is traveling a lot. In the future we may have to adjust the timing of his treatment around his schedule. 4. I encouraged the patient to follow up with Dr. Patricia Victoria next Monday. 5. I will see the patient in 4 weeks.
[2018-03-06 14:34] VITALS: BP 170/95; PULSE 62; RESP 18; TEMP 36.7
[2018-03-06] MEDS: BORTEZOMIB SUBCUT (15:08)
[2018-03-06] MEDS: SODIUM CHLORIDE 0.9% SUBCUT (15:08)
[2018-03-15 14:21] VITALS: BP 138/73; PULSE 63; RESP 16; TEMP 36.7; O2SAT 94
[2018-03-15] MEDS: BORTEZOMIB SUBCUT (14:58)
[2018-03-15] MEDS: SODIUM CHLORIDE 0.9% SUBCUT (14:58)
[2018-03-22 09:18] VITALS: BP 163/80; PULSE 88; RESP 18; TEMP 36.6; O2SAT 95
[2018-03-22] MEDS: SODIUM CHLORIDE 0.9% SUBCUT (09:58)
[2018-03-22] MEDS: BORTEZOMIB SUBCUT (09:58)
[2018-03-29 10:00] LABS: Add Manual Diff / Slide Review NO; Basophils Percent Auto 1.5 % (0-2); Eosinophils Percent Auto 3.4 % (2-4); Hematocrit 39.5 % (41-53); Hemoglobin 13.5 g/dL (13.5-17.5); Lymphocytes Percent Auto 27.9 % (25-40); Mean Corpuscular HGB Conc 34.3 % (30-36); Mean Corpuscular Hemoglobin 31.6 PG (26-34); Mean Corpuscular Volume 92.1 fL (80-100); Monocytes Percent Auto 14.4 % (3-14); Neutrophils Absolute Auto 2500 /uL (3000-5900); Neutrophils Percent Auto 52.8 % (50-75); Platelet Count 163 X10^3/uL (150-400); Red Blood Cell Count 4.29 X10^6/uL (4.5-5.9); Red Cell Distribution Width 15.8 % (11.6-14.8); White Blood Cell Count 4.7 X10^3/uL (4.5-11.0)
[2018-03-29 10:12] LABS: Alanine Aminotransferase 26 IU/L (21-72); Albumin Globulin Ratio 1.5 (1.0-2.8); Alkaline Phosphatase 51 U/L (38-126); Aspartate Aminotransferase 17 IU/L (17-59); BUN Creatinine Ratio 18.9 (6-22); Bilirubin Total 0.4 mg/dL (0.2-1.3); Blood Urea Nitrogen 17 mg/dL (9-20); Calcium 8.8 mg/dL (8.4-10.2); Carbon Dioxide 23 mmol/L (22-32); Chloride 107 mmol/L (98-107); Estimated Glomerular Filt Rate > 60.0 mL/min (>60); Globulin 2.6 g/dL (1.7-4.1); Glucose 139 mg/dL (80-110); HEMOLYSIS < 15 (0-50); Lactate Dehydrogenase 386 U/L (313-618); Potassium 3.8 mmol/L (3.4-5.1); Sodium 142 mmol/L (137-145); Total Protein 6.6 g/dL (6.3-8.2)
--- NOTE | 2018-03-29 10:21 | ONC.PN ---
PN -Subjective Interval history: 68-year-old gentleman with multiple myeloma IgG kappa currently on treatment with RVD. Recently patient was evaluated by Dr. Patricia Henriquez at [facility] on 03/07/2018. Dr. Patricia Henriquez had a long discussion with the patient regarding the treatment course with RVD. The regimen RVD was also adjusted as follows: Revlimid 10 mg once a day 3 weeks on and 1 week off, Velcade 1 milligrams/m2 weekly 3 weeks on and 1 week off and dexamethasone 20 mg the day of the Velcade and the day after the Velcade injection. Patient will start the new regimen in a week. Currently he is in the off-week of the current cycle. Dr. Henriquez also talked with the patient about the bone marrow transplant. Patient said that he used to be against the stem cell transplant 100%, now he is probably about 95%. He is open to discussion with the transplant team at the [facility]. But he said he is still not decided yet at this moment. Otherwise patient reports that the only thing that is bothering is the gout. Patient actually has talked with Dr. Patricia Henriquez and a recommendation is to use dexamethasone as needed basis. Oncology History Patient was diagnosed with intermediate risk IgG kappa multiple myeloma with a monoclonal IgG of 3.5 gram/deciliter and a serum free light chain that is greater than 100 and as well as a bone marrow biopsy that shows 85% infiltration by abnormal plasma cells. He had a free kappa of approximately 350 and free lambda of 3.5 with a ratio of 100 and baseline. He does have a mild anemia with a hemoglobin level of 11.5. His skeletal survey did not show any lytic lesions but his PET scan showed some areas of heterogeneous uptake in the marrow. Borderline normal creatinine 1.2 and calcium at baseline. 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 Fish panel negative for high risk abnormalities including chromosome 17 and chromosome 14 after a shins. Initial treatment with VRD was started on November 22, 2017 with Revlimid starting with a few days delay. Revlimid for initial cycle was 15 mg by mouth daily, three weeks on and 1 week off; Velcade subcutaneously 1.5 mg per sq meter weekly without break. Dexamethasone 20 mg orally once a week on the day of Velcade. Patient developed a generalized rash with 1 week after taking Revlimid which was then held. Revlimid was re-initiated at a lower dosage of 5 mg daily 2 weeks on and 1 week off since January 05, 2018 and he is able to tolerate without any rash. Patient also developed early onset of symptoms of peripheral neuropathy likely due to Velcade, therefore the dosage was reduced to 1.3 mg per sq meter on December and then per patient's request further decreased to 1 mg per sq meter since January 23, 2018. - Patient Self-Reported Symptoms SR Constitution: Fatigue/Malaise SR eye issues: Vision changes, Eye pain SR ears, nose, mouth, throat issues: Ears ringing SR Cardiovascular issues: Extreme swelling SR Genitourinary issues: Frequent urination SR Musculoskeletal issues: Joint pain or swelling, Difficulty walking SR Neuro issues: Numbness or tingling - Additional ROS All systems PM: reviewed and no additional remarkable complaints except as stated Home Medications and Allergies Home Medications Medication Instructions Recorded Confirmed Type lisinopril 10 mg PO QDAY #0 05/31/16 03/29/18 History aspirin 162 mg PO DAILY 09/22/17 03/29/18 History dexamethasone 20 mg PO WEEKLY #30 tab 03/02/18 03/05/18 Rx lenalidomide 10 mg PO DAILY #21 cap 03/28/18 Rx acyclovir 800 mg PO BID 03/29/18 03/29/18 History clotrimazole 10 mg MUCOUS MEMBRANE 5XD 03/29/18 03/29/18 History febuxostat [Uloric] 40 mg PO DAILY 03/29/18 03/29/18 History lorazepam 2 mg PO PRN PRN 03/29/18 03/29/18 History pyridoxine (vitamin B6) 100 mg PO BID 03/29/18 03/29/18 History sulfamethoxazole-trimethoprim 1 tab PO BID 03/29/18 03/29/18 History Allergies Allergy/AdvReac Type Severity Reaction Status Date / Time No Known Drug Allergies Allergy Verified 09/22/17 16:09 Exam Vital signs: Last Vital Signs Temp 97.8 F 03/22/18 09:18 Pulse 88 03/22/18 09:18 Resp 18 03/22/18 09:18 BP 163/80 H 03/22/18 09:18 Pulse Ox 95 03/22/18 09:18 ECOG 1 Narrative: Constitutional: WDWN, NAD, average body habitus, well groomed, pleasant and cooperative. HEENT: NCAT, EOMI, PERRLA, anicteric sclera, no hearing difficulty; Oral mucus membrane moist and without ulcers. Neck: Supple, symmetrical, and tracheal midline; No palpable thyromegaly and no palpable lymph nodes. Respiratory: No use of accessory muscles. Clear to auscultation, and no wheezes or rales or rubs. Cardiovascular: Regular rate and rhythm, S1 and S2 normal, no murmurs gallops or rubs. No JVD. No pitting edema of lower extremities. Abdomen: Soft, nontender, non-distended, bowel sounds normal, no palpable organomegaly, no hernia, no palpable masses. Lower extremities: No palpable pedal edema. Lymphatic: no palpable lymph nodes in the neck, axillae, or groins. Musculoskeletal: normal gait and station, no clubbing, no cyanosis, no pitting edema. Skin: no rashes, no ulcers, no petechiae Neurological: Awake and alert and oriented x3. CN II-XII grossly intact. No focal motor or sensory deficit. Psychiatric: Good judgment, good insight, normal affect, normal thought process, cooperative, no depression, no anxiety. Results - Labs Laboratory Last Values WBC 4.7 X10^3/uL (4.5-11.0) 03/29/18 09:44 RBC 4.29 X10^6/uL (4.5-5.9) L 03/29/18 09:44 Hgb 13.5 g/dL (13.5-17.5) 03/29/18 09:44 Hct 39.5 % (41-53) L 03/29/18 09:44 MCV 92.1 fL (80-100) 03/29/18 09:44 MCH 31.6 PG (26-34) 03/29/18 09:44 MCHC 34.3 % (30-36) 03/29/18 09:44 RDW 15.8 % (11.6-14.8) H 03/29/18 09:44 Plt Count 163 X10^3/uL (150-400) 03/29/18 09:44 Neut % (Auto) 52.8 % (50-75) 03/29/18 09:44 Lymph % (Auto) 27.9 % (25-40) 03/29/18 09:44 Coleman % (Auto) 14.4 % (3-14) H 03/29/18 09:44 Eos % (Auto) 3.4 % (2-4) 03/29/18 09:44 Baso % (Auto) 1.5 % (0-2) 03/29/18 09:44 Neut # (Auto) 2500 /uL (0279-0873) L 03/29/18 09:44 Sodium 142 mmol/L (137-145) 03/29/18 09:44 Potassium 3.8 mmol/L (3.4-5.1) 03/29/18 09:44 Chloride 107 mmol/L (98-107) 03/29/18 09:44 Carbon Dioxide 23 mmol/L (22-32) 03/29/18 09:44 BUN 17 mg/dL (9-20) 03/29/18 09:44 Creatinine 0.90 mg/dL (0.66-1.25) 03/29/18 09:44 Estimated GFR > 60.0 mL/min (>60) 03/29/18 09:44 BUN/Creatinine Ratio 18.9 (6-22) 03/29/18 09:44 Glucose 139 mg/dL (80-110) H 03/29/18 09:44 Calcium 8.8 mg/dL (8.4-10.2) 03/29/18 09:44 Total Bilirubin 0.4 mg/dL (0.2-1.3) 03/29/18 09:44 AST 17 IU/L (17-59) 03/29/18 09:44 ALT 26 IU/L (21-72) 03/29/18 09:44 Alkaline Phosphatase 51 U/L (38-126) 03/29/18 09:44 Lactate Dehydrogenase 386 U/L (313-618) 03/29/18 09:44 Total Protein 6.6 g/dL (6.3-8.2) 03/29/18 09:44 Albumin 4.0 g/dL (3.5-5.0) 03/29/18 09:44 Globulin 2.6 g/dL (1.7-4.1) 03/29/18 09:44 Albumin/Globulin Ratio 1.5 (1.0-2.8) 03/29/18 09:44 Assessment and Plan (1) Multiple myeloma Assessment: Today we have a long and extensive discussion about treatment of multiple myeloma. I explained to him that bone marrow transplant after the initial induction is a standard of care and has been shown to improve progression free survival. As far as overall survival is concerned, it is still controversial. I encouraged patient to follow up at [facility] for more discussion. Patient voiced understanding. Plan: 1. Continue RVD as follows Revlimid 10 mg daily 3 weeks on and 1 week off Velcade 1 mg/m2, subQ weekly, 3 weeks on and 1 week off Dex 20 mg the day of and the day after Velcade injection 2. Cont Acyclovir 3. Cont Bactrium 4. F/u at [facility] for stem cell 5 RTC in one month, CBC, CMP, MM panel.
--- NOTE | 2018-03-29 10:44 | P.PNONC_ITS ---
PN -Subjective Interval history: 68-year-old gentleman with multiple myeloma IgG kappa currently on treatment with RVD. Recently patient was evaluated by Dr. Patricia Henriquez at [facility] on 03/07/2018. Dr. Patricia Henriquez had a long discussion with the patient regarding the treatment course with RVD. The regimen RVD was also adjusted as follows: Revlimid 10 mg once a day 3 weeks on and 1 week off, Velcade 1 milligrams/m2 weekly 3 weeks on and 1 week off and dexamethasone 20 mg the day of the Velcade and the day after the Velcade injection. Patient will start the new regimen in a week. Currently he is in the off-week of the current cycle. Dr. Henriquez also talked with the patient about the bone marrow transplant. Patient said that he used to be against the stem cell transplant 100%, now he is probably about 95%. He is open to discussion with the transplant team at the [facility]. But he said he is still not decided yet at this moment. Otherwise patient reports that the only thing that is bothering is the gout. Patient actually has talked with Dr. Patricia Henriquez and a recommendation is to use dexamethasone as needed basis. Oncology History Patient was diagnosed with intermediate risk IgG kappa multiple myeloma with a monoclonal IgG of 3.5 gram/deciliter and a serum free light chain that is greater than 100 and as well as a bone marrow biopsy that shows 85% infiltration by abnormal plasma cells. He had a free kappa of approximately 350 and free lambda of 3.5 with a ratio of 100 and baseline. He does have a mild anemia with a hemoglobin level of 11.5. His skeletal survey did not show any lytic lesions but his PET scan showed some areas of heterogeneous uptake in the marrow. Borderline normal creatinine 1.2 and calcium at baseline. 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 Fish panel negative for high risk abnormalities including chromosome 17 and chromosome 14 after a shins. Initial treatment with VRD was started on November 22, 2017 with Revlimid starting with a few days delay. Revlimid for initial cycle was 15 mg by mouth daily, three weeks on and 1 week off; Velcade subcutaneously 1.5 mg per sq meter weekly without break. Dexamethasone 20 mg orally once a week on the day of Velcade. Patient developed a generalized rash with 1 week after taking Revlimid which was then held. Revlimid was re-initiated at a lower dosage of 5 mg daily 2 weeks on and 1 week off since January 05, 2018 and he is able to tolerate without any rash. Patient also developed early onset of symptoms of peripheral neuropathy likely due to Velcade, therefore the dosage was reduced to 1.3 mg per sq meter on December and then per patient's request further decreased to 1 mg per sq meter since January 23, 2018. - Patient Self-Reported Symptoms SR Constitution: Fatigue/Malaise SR eye issues: Vision changes, Eye pain SR ears, nose, mouth, throat issues: Ears ringing SR Cardiovascular issues: Extreme swelling SR Genitourinary issues: Frequent urination SR Musculoskeletal issues: Joint pain or swelling, Difficulty walking SR Neuro issues: Numbness or tingling - Additional ROS All systems PM: reviewed and no additional remarkable complaints except as stated Home Medications and Allergies Home Medications Medication Instructions Recorded Confirmed Type lisinopril 10 mg PO QDAY #0 05/31/16 03/29/18 History aspirin 162 mg PO DAILY 09/22/17 03/29/18 History dexamethasone 20 mg PO WEEKLY #30 tab 03/02/18 03/05/18 Rx lenalidomide 10 mg PO DAILY #21 cap 03/28/18 Rx acyclovir 800 mg PO BID 03/29/18 03/29/18 History clotrimazole 10 mg MUCOUS MEMBRANE 5XD 03/29/18 03/29/18 History febuxostat [Uloric] 40 mg PO DAILY 03/29/18 03/29/18 History lorazepam 2 mg PO PRN PRN 03/29/18 03/29/18 History pyridoxine (vitamin B6) 100 mg PO BID 03/29/18 03/29/18 History sulfamethoxazole-trimethoprim 1 tab PO BID 03/29/18 03/29/18 History Allergies Allergy/AdvReac Type Severity Reaction Status Date / Time No Known Drug Allergies Allergy Verified 09/22/17 16:09 Exam Vital signs: Last Vital Signs Temp 97.8 F 03/22/18 09:18 Pulse 88 03/22/18 09:18 Resp 18 03/22/18 09:18 BP 163/80 H 03/22/18 09:18 Pulse Ox 95 03/22/18 09:18 ECOG 1 Narrative: Constitutional: WDWN, NAD, average body habitus, well groomed, pleasant and cooperative. HEENT: NCAT, EOMI, PERRLA, anicteric sclera, no hearing difficulty; Oral mucus membrane moist and without ulcers. Neck: Supple, symmetrical, and tracheal midline; No palpable thyromegaly and no palpable lymph nodes. Respiratory: No use of accessory muscles. Clear to auscultation, and no wheezes or rales or rubs. Cardiovascular: Regular rate and rhythm, S1 and S2 normal, no murmurs gallops or rubs. No JVD. No pitting edema of lower extremities. Abdomen: Soft, nontender, non-distended, bowel sounds normal, no palpable organomegaly, no hernia, no palpable masses. Lower extremities: No palpable pedal edema. Lymphatic: no palpable lymph nodes in the neck, axillae, or groins. Musculoskeletal: normal gait and station, no clubbing, no cyanosis, no pitting edema. Skin: no rashes, no ulcers, no petechiae Neurological: Awake and alert and oriented x3. CN II-XII grossly intact. No focal motor or sensory deficit. Psychiatric: Good judgment, good insight, normal affect, normal thought process , cooperative, no depression, no anxiety. Results - Labs Laboratory Last Values WBC 4.7 X10^3/uL (4.5-11.0) 03/29/18 09:44 RBC 4.29 X10^6/uL (4.5-5.9) L 03/29/18 09:44 Hgb 13.5 g/dL (13.5-17.5) 03/29/18 09:44 Hct 39.5 % (41-53) L 03/29/18 09:44 MCV 92.1 fL (80-100) 03/29/18 09:44 MCH 31.6 PG (26-34) 03/29/18 09:44 MCHC 34.3 % (30-36) 03/29/18 09:44 RDW 15.8 % (11.6-14.8) H 03/29/18 09:44 Plt Count 163 X10^3/uL (150-400) 03/29/18 09:44 Neut % (Auto) 52.8 % (50-75) 03/29/18 09:44 Lymph % (Auto) 27.9 % (25-40) 03/29/18 09:44 [place] % (Auto) 14.4 % (3-14) H 03/29/18 09:44 Eos % (Auto) 3.4 % (2-4) 03/29/18 09:44 Baso % (Auto) 1.5 % (0-2) 03/29/18 09:44 Neut # (Auto) 2500 /uL (4860-4005) L 03/29/18 09:44 Sodium 142 mmol/L (137-145) 03/29/18 09:44 Potassium 3.8 mmol/L (3.4-5.1) 03/29/18 09:44 Chloride 107 mmol/L (98-107) 03/29/18 09:44 Carbon Dioxide 23 mmol/L (22-32) 03/29/18 09:44 BUN 17 mg/dL (9-20) 03/29/18 09:44 Creatinine 0.90 mg/dL (0.66-1.25) 03/29/18 09:44 Estimated GFR > 60.0 mL/min (>60) 03/29/18 09:44 BUN/Creatinine Ratio 18.9 (6-22) 03/29/18 09:44 Glucose 139 mg/dL (80-110) H 03/29/18 09:44 Calcium 8.8 mg/dL (8.4-10.2) 03/29/18 09:44 Total Bilirubin 0.4 mg/dL (0.2-1.3) 03/29/18 09:44 AST 17 IU/L (17-59) 03/29/18 09:44 ALT 26 IU/L (21-72) 03/29/18 09:44 Alkaline Phosphatase 51 U/L (38-126) 03/29/18 09:44 Lactate Dehydrogenase 386 U/L (313-618) 03/29/18 09:44 Total Protein 6.6 g/dL (6.3-8.2) 03/29/18 09:44 Albumin 4.0 g/dL (3.5-5.0) 03/29/18 09:44 Globulin 2.6 g/dL (1.7-4.1) 03/29/18 09:44 Albumin/Globulin Ratio 1.5 (1.0-2.8) 03/29/18 09:44 Assessment and Plan (1) Multiple myeloma Assessment: Today we have a long and extensive discussion about treatment of multiple myeloma. I explained to him that bone marrow transplant after the initial induction is a standard of care and has been shown to improve progression free survival. As far as overall survival is concerned, it is still controversial. I encouraged patient to [facility] for more discussion. Patient voiced understanding. Plan: 1. Continue RVD as follows Revlimid 10 mg daily 3 weeks on and 1 week off Velcade 1 mg/m2, subQ weekly, 3 weeks on and 1 week off Dex 20 mg the day of and the day after Velcade injection 2. Cont Acyclovir 3. Cont Bactrium 4. F/u at [facility] for [facility] cell 5 RTC in one month, CBC, CMP, MM panel.
[2018-03-31 14:28] LABS: Immunoglobulin A 79 mg/dL (81-463); Immunoglobulin G, Quantitative 662 mg/dL (694-1618); Immunoglobulin M, Quantitative 8 mg/dL (48-271)
[2018-03-31 14:29] LABS: Beta-2-Microglobulin 2.28 mg/L (< 2.52)
[2018-03-31 16:37] LABS: Free Kappa/ Lambda Ratio 2.83 (0.26-1.65); Free Lambda 7.1 mg/L (5.7-26.3)
[2018-04-03 11:54] LABS: Abnormal Protein Band 1 0.3 g/dL (NONE DETECTED); Albumin 3.6 g/dL (3.8-4.8); Alpha 1 Globulin 0.3 g/dL (0.2-0.3); Alpha 2 Globulin 0.8 g/dL (0.5-0.9); Beta 1 Globulin 0.4 g/dL (0.4-0.6); Gamma Globulin 0.6 g/dL (0.8-1.7)
--- NOTE | 2018-04-11 15:23 | ONC.SCHED ---
Pt. Called today and left a message that he was ill and would not be coming to his appt. Peter Lopez. 04/11/18 @ 1520 - [place]
[2018-04-19 13:54] LABS: Add Manual Diff / Slide Review NO; Basophils Percent Auto 0.5 % (0-2); Eosinophils Percent Auto 1.8 % (2-4); Hematocrit 42.4 % (41-53); Hemoglobin 14.3 g/dL (13.5-17.5); Mean Corpuscular HGB Conc 33.9 % (30-36); Mean Corpuscular Hemoglobin 31.1 PG (26-34); Mean Corpuscular Volume 91.9 fL (80-100); Monocytes Percent Auto 5.7 % (3-14); Neutrophils Absolute Auto 5100 /uL (1500-7000); Platelet Count 182 X10^3/uL (150-400); Red Blood Cell Count 4.61 X10^6/uL (4.5-5.9); White Blood Cell Count 6.4 X10^3/uL (4.5-11.0)
[2018-04-19 14:19] LABS: Alanine Aminotransferase 33 IU/L (21-72); Albumin 4.3 g/dL (3.5-5.0); Albumin Globulin Ratio 1.5 (1.0-2.8); Alkaline Phosphatase 60 U/L (38-126); Aspartate Aminotransferase 22 IU/L (17-59); Bilirubin Total 0.4 mg/dL (0.2-1.3); Blood Urea Nitrogen 14 mg/dL (9-20); Calcium 9.1 mg/dL (8.4-10.2); Carbon Dioxide 24 mmol/L (22-32); Chloride 104 mmol/L (98-107); Estimated Glomerular Filt Rate > 60.0 mL/min (>60); Globulin 2.8 g/dL (1.7-4.1); Glucose 133 mg/dL (80-110); HEMOLYSIS < 15 (0-50); Potassium 3.9 mmol/L (3.4-5.1); Sodium 139 mmol/L (137-145); Total Protein 7.1 g/dL (6.3-8.2)
[2018-04-19 14:30] LABS: Lactate Dehydrogenase 383 U/L (313-618)
[2018-04-19 15:04] VITALS: BP 168/72; PULSE 62; RESP 18; TEMP 36.5; O2SAT 95
[2018-04-19] MEDS: SODIUM CHLORIDE 0.9% SUBCUT (15:25)
[2018-04-19] MEDS: BORTEZOMIB SUBCUT (15:25)
[2018-04-23 17:44] LABS: Beta-2-Microglobulin 2.21 mg/L (< 2.52); Free Kappa Light Chain 23.2 mg/L (3.3-19.4); Free Kappa/ Lambda Ratio 2.41 (0.26-1.65); Free Lambda 9.6 mg/L (5.7-26.3); Immunoglobulin A 95 mg/dL (81-463); Immunoglobulin G, Quantitative 725 mg/dL (694-1618); Immunoglobulin M, Quantitative 10 mg/dL (48-271)
[2018-04-24 13:25] LABS: Abnormal Protein Band 1 0.4 g/dL (NONE DETECTED); Alpha 1 Globulin 0.3 g/dL (0.2-0.3); Alpha 2 Globulin 0.8 g/dL (0.5-0.9); Beta 1 Globulin 0.4 g/dL (0.4-0.6); Gamma Globulin 0.7 g/dL (0.8-1.7); Protein, Total 6.5 g/dL (6.1-8.1)
--- NOTE | 2018-04-26 09:02 | ONC.PN ---
PN -Subjective Interval history: 68-year-old gentleman with multiple myeloma IgG kappa currently on treatment with RVD. Recently patient was evaluated by Dr. Patricia Henriquez at [facility] on 03/07/2018. Dr. Patricia Henriquez had a long discussion with the patient regarding the treatment course with RVD. The regimen RVD was also adjusted as follows: Revlimid 10 mg once a day 3 weeks on and 1 week off, Velcade 1 milligrams/m2 weekly 3 weeks on and 1 week off and dexamethasone 20 mg the day of the Velcade and the day after the Velcade injection. Patient will start the new regimen in a week. Currently he is in the off-week of the current cycle. Dr. Henriquez also talked with the patient about the bone marrow transplant. Patient said that he used to be against the stem cell transplant 100%, now he is probably about 95%. He is open to discussion with the transplant team at the [facility]. But he said he is still not decided yet at this moment. Otherwise patient reports that the only thing that is bothering is the gout. Patient actually has talked with Dr. Patricia Henriquez and a recommendation is to use dexamethasone as needed basis. feel p be traveling for hte next 2 months. siena is experiencing sides: farigue and fog, skipoing Velcade affect ices. tendonitis achilis tendone. dex 20 mg day of an dday after mehots Oncology History 68 year old male with intermediate risk IgG kappa multiple myeloma with a monoclonal IgG of 3.5 gram/deciliter and a serum free light chain that is greater than 100 and as well as a bone marrow biopsy that shows 85% infiltration by abnormal plasma cells. He had a free kappa of approximately 350 and free lambda of 3.5 with a ratio of 100 and baseline. He does have a mild anemia with a hemoglobin level of 11.5. His skeletal survey did not show any lytic lesions but his PET scan showed some areas of heterogeneous uptake in the marrow. Borderline normal creatinine 1.2 and calcium at baseline. 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 Fish panel negative for high risk abnormalities including chromosome 17 and chromosome 14 after a shins. Initial treatment with VRD was started on November 22, 2017 with Revlimid starting with a few days delay. Revlimid for initial cycle was 15 mg by mouth daily, three weeks on and 1 week off; Velcade subcutaneously 1.5 mg per sq meter weekly without break. Dexamethasone 20 mg orally once a week on the day of Velcade. Patient developed a generalized rash with 1 week after taking Revlimid which was then held. Revlimid was re-initiated at a lower dosage of 5 mg daily 2 weeks on and 1 week off since January 05, 2018 and he is able to tolerate without any rash. Patient also developed early onset of symptoms of peripheral neuropathy likely due to Velcade, therefore the dosage was reduced to 1.3 mg per sq meter on 01/10/2018 and then per patient's request further decreased to 1 mg per sq meter since 01/23/2018. - Patient Self-Reported Symptoms SR Constitution: Fatigue/Malaise SR eye issues: Vision changes, Eye pain SR ears, nose, mouth, throat issues: Ears ringing SR Cardiovascular issues: Extreme swelling SR Genitourinary issues: Frequent urination SR Musculoskeletal issues: Joint pain or swelling, Difficulty walking SR Neuro issues: Numbness or tingling - Additional ROS All systems PM: reviewed and no additional remarkable complaints except as stated Home Medications and Allergies Home Medications Medication Instructions Recorded Confirmed Type lisinopril 10 mg PO QDAY #0 05/31/16 03/29/18 History aspirin 162 mg PO DAILY 09/22/17 03/29/18 History dexamethasone 20 mg PO WEEKLY #30 tab 03/02/18 03/05/18 Rx lenalidomide 10 mg PO DAILY #21 cap 03/28/18 Rx acyclovir 800 mg PO BID 03/29/18 03/29/18 History clotrimazole 10 mg MUCOUS MEMBRANE 5XD 03/29/18 03/29/18 History febuxostat [Uloric] 40 mg PO DAILY 03/29/18 03/29/18 History lorazepam 2 mg PO PRN PRN 03/29/18 03/29/18 History pyridoxine (vitamin B6) 100 mg PO BID 03/29/18 03/29/18 History sulfamethoxazole-trimethoprim 1 tab PO BID 03/29/18 03/29/18 History colchicine 0.6 mg PO DAILY 04/26/18 04/26/18 History Allergies Allergy/AdvReac Type Severity Reaction Status Date / Time No Known Drug Allergies Allergy Verified 09/22/17 16:09 Exam Vital signs: Last Vital Signs Temp 97.7 F 04/19/18 15:04 Pulse 62 04/19/18 15:04 Resp 18 04/19/18 15:04 BP 168/72 H 04/19/18 15:04 Pulse Ox 95 04/19/18 15:04 Narrative: Constitutional: WDWN, NAD, average body habitus, well groomed, pleasant and cooperative. HEENT: NCAT, EOMI, PERRLA, anicteric sclera, no hearing difficulty; Oral mucus membrane moist and without ulcers. Neck: Supple, symmetrical, and tracheal midline; No palpable thyromegaly and no palpable lymph nodes. Respiratory: No use of accessory muscles. Clear to auscultation, and no wheezes or rales or rubs. Cardiovascular: Regular rate and rhythm, S1 and S2 normal, no murmurs gallops or rubs. No JVD. No pitting edema of lower extremities. Abdomen: Soft, nontender, non-distended, bowel sounds normal, no palpable organomegaly, no hernia, no palpable masses. Lower extremities: No palpable pedal edema. Lymphatic: no palpable lymph nodes in the neck, axillae, or groins. Musculoskeletal: normal gait and station, no clubbing, no cyanosis, no pitting edema. Skin: no rashes, no ulcers, no petechiae Neurological: Awake and alert and oriented x3. CN II-XII grossly intact. No focal motor or sensory deficit. Psychiatric: Good judgment, good insight, normal affect, normal thought process, cooperative, no depression, no anxiety. Results - Labs Laboratory Last Values WBC 6.4 X10^3/uL (4.5-11.0) 04/19/18 13:21 RBC 4.61 X10^6/uL (4.5-5.9) 04/19/18 13:21 Hgb 14.3 g/dL (13.5-17.5) 04/19/18 13:21 Hct 42.4 % (41-53) 04/19/18 13:21 MCV 91.9 fL (80-100) 04/19/18 13:21 MCH 31.1 PG (26-34) 04/19/18 13:21 MCHC 33.9 % (30-36) 04/19/18 13:21 RDW 16.0 % (11.6-14.8) H 04/19/18 13:21 Plt Count 182 X10^3/uL (150-400) 04/19/18 13:21 Neut % (Auto) 80.0 % (50-75) H 04/19/18 13:21 Lymph % (Auto) 12.0 % (25-40) L 04/19/18 13:21 [place] % (Auto) 5.7 % (3-14) 04/19/18 13:21 Eos % (Auto) 1.8 % (2-4) L 04/19/18 13:21 Baso % (Auto) 0.5 % (0-2) 04/19/18 13:21 Neut # (Auto) 5100 /uL (1314-6791) 04/19/18 13:21 Sodium 139 mmol/L (137-145) 04/19/18 13:21 Potassium 3.9 mmol/L (3.4-5.1) 04/19/18 13:21 Chloride 104 mmol/L (98-107) 04/19/18 13:21 Carbon Dioxide 24 mmol/L (22-32) 04/19/18 13:21 BUN 14 mg/dL (9-20) 04/19/18 13:21 Creatinine 1.00 mg/dL (0.66-1.25) 04/19/18 13:21 Estimated GFR > 60.0 mL/min (>60) 04/19/18 13:21 BUN/Creatinine Ratio 14.0 (6-22) 04/19/18 13:21 Glucose 133 mg/dL (80-110) H 04/19/18 13:21 Calcium 9.1 mg/dL (8.4-10.2) 04/19/18 13:21 Total Bilirubin 0.4 mg/dL (0.2-1.3) 04/19/18 13:21 AST 22 IU/L (17-59) 04/19/18 13:21 ALT 33 IU/L (21-72) 04/19/18 13:21 Alkaline Phosphatase 60 U/L (38-126) 04/19/18 13:21 Lactate Dehydrogenase 383 U/L (313-618) 04/19/18 13:21 Serum Total Protein 6.5 g/dL (6.1-8.1) 04/19/18 13:21 Total Protein 7.1 g/dL (6.3-8.2) 04/19/18 13:21 Albumin 4.0 g/dL (3.8-4.8) 04/19/18 13:21 Globulin 2.8 g/dL (1.7-4.1) 04/19/18 13:21 Albumin/Globulin Ratio 1.5 (1.0-2.8) 04/19/18 13:21 Cispj-5-Zllgfspwr 0.3 g/dL (0.2-0.3) 04/19/18 13:21 Koshy-6-Nrukamqqm 0.8 g/dL (0.5-0.9) 04/19/18 13:21 Euuc-1-Rqfkjcmz 0.4 g/dL (0.4-0.6) 04/19/18 13:21 Frzl-6-Kyoujqai 0.3 g/dL (0.2-0.5) 04/19/18 13:21 Awzb-3-Nkcyuoodzifxu 2.21 mg/L (< 2.52) 04/19/18 13:21 Gamma Globulins 0.7 g/dL (0.8-1.7) L 04/19/18 13:21 Abnorm Protein Band 1 0.4 g/dL (NONE DETECTED) A 04/19/18 13:21 Abnorm Protein Band 2 Not Reportable 04/19/18 13:21 Abn Gamma Band 3 Serum Not Reportable 04/19/18 13:21 PEP Comment See note 04/19/18 13:21 IgG, Serum (MS) 725 mg/dL (694-1618) 04/19/18 13:21 IgA 95 mg/dL (81-463) 04/19/18 13:21 IgM 10 mg/dL (48-271) L 04/19/18 13:21 ROMA & SPEP Interp See note 04/19/18 13:21 Free [place] Light Chains 23.2 mg/L (3.3-19.4) H 04/19/18 13:21 Free Lambda Light Chain 9.6 mg/L (5.7-26.3) 04/19/18 13:21 Free [place]/Lambda Ratio 2.41 (0.26-1.65) H 04/19/18 13:21 Assessment and Plan (1) Multiple myeloma 1. IgG kappa multiple myeloma, intermediate risk, diagnosed after BMA/Bx on 10/31/2017 that shows 85% abnormal plasma cells with complex cytogenetics. PET scan showed some areas of heterogeneous uptake in the marrow. His monoclonal IgG of 3.5 g/dl on 09/23/2017. 2. VRD was started on 11/22/2017: R 15 mg daily, 3 weeks on and 1 week off; Velcade subcutaneously 1.5 mg per sq meter weekly without break. Dexamethasone 20 mg orally once a week on the day of Velcade. He developed a generalized rash with 1 week after taking Revlimid which was then held. Revlimid was re-initiated at 5 mg daily 2 weeks on and 1 week off since 01/05/2018. Velcade was reduced to 1.3 mg per sq meter on 01/10/2018 due to neuropathy, and then per patient's request further decreased to 1 mg per sq meter since 01/23/2018. Patient has lot of questions regarding the role of stem cell transplant. I talked with him that in my opinion he has a intermediate risk may be slightly higher given the complex cytogenetics on the bone marrow studies. I would recommend and support the collection and storage of stem cells if he even does not want to do stem cell transplant. I talked with him that in the future if he may need stem cell transplant. I also talked with the patient that it would be better if he can stick to the schedule the R VD. I explained to him and his that if we skipped Velcade injection here and there, he may develop resistance more easily. Patient currently is in the 1 week break. And he understands today's conversation and will resume treatment next week as instructed and will stick to it as much as he can. Patient has already scheduled a traveling late May. I would like to have him come back to see me before he goes on his travel. Plan: 1. Continue RVD as follows Revlimid 10 mg daily 3 weeks on and 1 week off Velcade 1 mg/m2, subQ weekly, 3 weeks on and 1 week off Dex 20 mg the day of and the day after Velcade injection 2. Cont Acyclovir 3. Cont Bactrium 4. F/u at [facility] for stem cell 5 RTC in 4-6 weeks, CBC, CMP, MM panel.
--- NOTE | 2018-04-26 09:08 | P.PNONC_ITS ---
PN -Subjective Interval history: 68-year-old gentleman with multiple myeloma IgG kappa currently on treatment with RVD. Recently patient was evaluated by Dr. Patricia Henriquez at [facility] on 03/07/2018. Dr. Patricia Henriquez had a long discussion with the patient regarding the treatment course with RVD. The regimen RVD was also adjusted as follows: Revlimid 10 mg once a day 3 weeks on and 1 week off, Velcade 1 milligrams/m2 weekly 3 weeks on and 1 week off and dexamethasone 20 mg the day of the Velcade and the day after the Velcade injection. Patient will start the new regimen in a week. Currently he is in the off-week of the current cycle. Dr. Henriquez also talked with the patient about the bone marrow transplant. Patient said that he used to be against the stem cell transplant 100%, now he is probably about 95%. He is open to discussion with the transplant team at the [facility]. But he said he is still not decided yet at this moment. Otherwise patient reports that the only thing that is bothering is the gout. Patient actually has talked with Dr. Patricia Henriquez and a recommendation is to use dexamethasone as needed basis. feel p be traveling for hte next 2 months. siena is experiencing sides: farigue and fog, skipoing Velcade affect ices. tendonitis achilis tendone. dex 20 mg day of an dday after mehots Oncology History 68 year old male with intermediate risk IgG kappa multiple myeloma with a monoclonal IgG of 3.5 gram/deciliter and a serum free light chain that is greater than 100 and as well as a bone marrow biopsy that shows 85% infiltration by abnormal plasma cells. He had a free kappa of approximately 350 and free lambda of 3.5 with a ratio of 100 and baseline. He does have a mild anemia with a hemoglobin level of 11.5. His skeletal survey did not show any lytic lesions but his PET scan showed some areas of heterogeneous uptake in the marrow. Borderline normal creatinine 1.2 and calcium at baseline. 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 Fish panel negative for high risk abnormalities including chromosome 17 and chromosome 14 after a shins. Initial treatment with VRD was started on November 22, 2017 with Revlimid starting with a few days delay. Revlimid for initial cycle was 15 mg by mouth daily, three weeks on and 1 week off; Velcade subcutaneously 1.5 mg per sq meter weekly without break. Dexamethasone 20 mg orally once a week on the day of Velcade. Patient developed a generalized rash with 1 week after taking Revlimid which was then held. Revlimid was re-initiated at a lower dosage of 5 mg daily 2 weeks on and 1 week off since January 05, 2018 and he is able to tolerate without any rash. Patient also developed early onset of symptoms of peripheral neuropathy likely due to Velcade, therefore the dosage was reduced to 1.3 mg per sq meter on 01/10/2018 and then per patient's request further decreased to 1 mg per sq meter since 01/23/2018. - Patient Self-Reported Symptoms SR Constitution: Fatigue/Malaise SR eye issues: Vision changes, Eye pain SR ears, nose, mouth, throat issues: Ears ringing SR Cardiovascular issues: Extreme swelling SR Genitourinary issues: Frequent urination SR Musculoskeletal issues: Joint pain or swelling, Difficulty walking SR Neuro issues: Numbness or tingling - Additional ROS All systems PM: reviewed and no additional remarkable complaints except as stated Home Medications and Allergies Home Medications Medication Instructions Recorded Confirmed Type lisinopril 10 mg PO QDAY #0 05/31/16 03/29/18 History aspirin 162 mg PO DAILY 09/22/17 03/29/18 History dexamethasone 20 mg PO WEEKLY #30 tab 03/02/18 03/05/18 Rx lenalidomide 10 mg PO DAILY #21 cap 03/28/18 Rx acyclovir 800 mg PO BID 03/29/18 03/29/18 History clotrimazole 10 mg MUCOUS MEMBRANE 5XD 03/29/18 03/29/18 History febuxostat [Uloric] 40 mg PO DAILY 03/29/18 03/29/18 History lorazepam 2 mg PO PRN PRN 03/29/18 03/29/18 History pyridoxine (vitamin B6) 100 mg PO BID 03/29/18 03/29/18 History sulfamethoxazole-trimethoprim 1 tab PO BID 03/29/18 03/29/18 History colchicine 0.6 mg PO DAILY 04/26/18 04/26/18 History Allergies Allergy/AdvReac Type Severity Reaction Status Date / Time No Known Drug Allergies Allergy Verified 09/22/17 16:09 Exam Vital signs: Last Vital Signs Temp 97.7 F 04/19/18 15:04 Pulse 62 04/19/18 15:04 Resp 18 04/19/18 15:04 BP 168/72 H 04/19/18 15:04 Pulse Ox 95 04/19/18 15:04 Narrative: Constitutional: WDWN, NAD, average body habitus, well groomed, pleasant and cooperative. HEENT: NCAT, EOMI, PERRLA, anicteric sclera, no hearing difficulty; Oral mucus membrane moist and without ulcers. Neck: Supple, symmetrical, and tracheal midline; No palpable thyromegaly and no palpable lymph nodes. Respiratory: No use of accessory muscles. Clear to auscultation, and no wheezes or rales or rubs. Cardiovascular: Regular rate and rhythm, S1 and S2 normal, no murmurs gallops or rubs. No JVD. No pitting edema of lower extremities. Abdomen: Soft, nontender, non-distended, bowel sounds normal, no palpable organomegaly, no hernia, no palpable masses. Lower extremities: No palpable pedal edema. Lymphatic: no palpable lymph nodes in the neck, axillae, or groins. Musculoskeletal: normal gait and station, no clubbing, no cyanosis, no pitting edema. Skin: no rashes, no ulcers, no petechiae Neurological: Awake and alert and oriented x3. CN II-XII grossly intact. No focal motor or sensory deficit. Psychiatric: Good judgment, good insight, normal affect, normal thought process , cooperative, no depression, no anxiety. Results - Labs Laboratory Last Values WBC 6.4 X10^3/uL (4.5-11.0) 04/19/18 13:21 RBC 4.61 X10^6/uL (4.5-5.9) 04/19/18 13:21 Hgb 14.3 g/dL (13.5-17.5) 04/19/18 13:21 Hct 42.4 % (41-53) 04/19/18 13:21 MCV 91.9 fL (80-100) 04/19/18 13:21 MCH 31.1 PG (26-34) 04/19/18 13:21 MCHC 33.9 % (30-36) 04/19/18 13:21 RDW 16.0 % (11.6-14.8) H 04/19/18 13:21 Plt Count 182 X10^3/uL (150-400) 04/19/18 13:21 Neut % (Auto) 80.0 % (50-75) H 04/19/18 13:21 Lymph % (Auto) 12.0 % (25-40) L 04/19/18 13:21 [place] % (Auto) 5.7 % (3-14) 04/19/18 13:21 Eos % (Auto) 1.8 % (2-4) L 04/19/18 13:21 Baso % (Auto) 0.5 % (0-2) 04/19/18 13:21 Neut # (Auto) 5100 /uL (1364-0561) 04/19/18 13:21 Sodium 139 mmol/L (137-145) 04/19/18 13:21 Potassium 3.9 mmol/L (3.4-5.1) 04/19/18 13:21 Chloride 104 mmol/L (98-107) 04/19/18 13:21 Carbon Dioxide 24 mmol/L (22-32) 04/19/18 13:21 BUN 14 mg/dL (9-20) 04/19/18 13:21 Creatinine 1.00 mg/dL (0.66-1.25) 04/19/18 13:21 Estimated GFR > 60.0 mL/min (>60) 04/19/18 13:21 BUN/Creatinine Ratio 14.0 (6-22) 04/19/18 13:21 Glucose 133 mg/dL (80-110) H 04/19/18 13:21 Calcium 9.1 mg/dL (8.4-10.2) 04/19/18 13:21 Total Bilirubin 0.4 mg/dL (0.2-1.3) 04/19/18 13:21 AST 22 IU/L (17-59) 04/19/18 13:21 ALT 33 IU/L (21-72) 04/19/18 13:21 Alkaline Phosphatase 60 U/L (38-126) 04/19/18 13:21 Lactate Dehydrogenase 383 U/L (313-618) 04/19/18 13:21 Serum Total Protein 6.5 g/dL (6.1-8.1) 04/19/18 13:21 Total Protein 7.1 g/dL (6.3-8.2) 04/19/18 13:21 Albumin 4.0 g/dL (3.8-4.8) 04/19/18 13:21 Globulin 2.8 g/dL (1.7-4.1) 04/19/18 13:21 Albumin/Globulin Ratio 1.5 (1.0-2.8) 04/19/18 13:21 Nbxum-8-Dwycgpaxc 0.3 g/dL (0.2-0.3) 04/19/18 13:21 Floio-8-Oqrbnvflc 0.8 g/dL (0.5-0.9) 04/19/18 13:21 Bsvr-0-Tonzxmrx 0.4 g/dL (0.4-0.6) 04/19/18 13:21 Szdb-8-Yavcuvgn 0.3 g/dL (0.2-0.5) 04/19/18 13:21 Mqwh-3-Uwzdscowglmgn 2.21 mg/L (< 2.52) 04/19/18 13:21 Gamma Globulins 0.7 g/dL (0.8-1.7) L 04/19/18 13:21 Abnorm Protein Band 1 0.4 g/dL (NONE DETECTED) A 04/19/18 13:21 Abnorm Protein Band 2 Not Reportable 04/19/18 13:21 Abn Gamma Band 3 Serum Not Reportable 04/19/18 13:21 PEP Comment See note 04/19/18 13:21 IgG, Serum (MS) 725 mg/dL (694-1618) 04/19/18 13:21 IgA 95 mg/dL (81-463) 04/19/18 13:21 IgM 10 mg/dL (48-271) L 04/19/18 13:21 ROMA & SPEP Interp See note 04/19/18 13:21 Free [place] Light Chains 23.2 mg/L (3.3-19.4) H 04/19/18 13:21 Free Lambda Light Chain 9.6 mg/L (5.7-26.3) 04/19/18 13:21 Free [place]/Lambda Ratio 2.41 (0.26-1.65) H 04/19/18 13:21 Assessment and Plan (1) Multiple myeloma 1. IgG kappa multiple myeloma, intermediate risk, diagnosed after BMA/Bx on that shows 85% abnormal plasma cells with complex cytogenetics. PET scan showed some areas of heterogeneous uptake in the marrow. His monoclonal IgG of 3.5 g/dl on 09/23/2017. 2. VRD was started on 11/22/2017: R 15 mg daily, 3 weeks on and 1 week off; Velcade subcutaneously 1.5 mg per sq meter weekly without break. Dexamethasone 20 mg orally once a week on the day of Velcade. He developed a generalized rash with 1 week after taking Revlimid which was then held. Revlimid was re- initiated at 5 mg daily 2 weeks on and 1 week off since 01/05/2018. Velcade was reduced to 1.3 mg per sq meter on 01/10/2018 due to neuropathy, and then per patient's request further decreased to 1 mg per sq meter since 01/23/2018. Patient has lot of questions regarding the role of stem cell transplant. I talked with him that in my opinion he has a intermediate risk may be slightly higher given the complex cytogenetics on the bone marrow studies. I would recommend and support the collection and storage of stem cells if he even does not want to do stem cell transplant. I talked with him that in the future if he may need stem cell transplant. I also talked with the patient that it would be better if he can stick to the schedule the R VD. I explained to him and his that if we skipped Velcade injection here and there, he may develop resistance more easily. Patient currently is in the 1 week break. And he understands today's conversation and will resume treatment next week as instructed and will stick to it as much as he can. Patient has already scheduled a traveling late May. I would like to have him come back to see me before he goes on his travel. Plan: 1. Continue RVD as follows Revlimid 10 mg daily 3 weeks on and 1 week off Velcade 1 mg/m2, subQ weekly, 3 weeks on and 1 week off Dex 20 mg the day of and the day after Velcade injection 2. Cont Acyclovir 3. Cont Bactrium 4. [facility] cell 5 RTC in 4-6 weeks, CBC, CMP, MM panel.
[2018-04-26 09:22] VITALS: BP 166/85; PULSE 60; RESP 18; TEMP 36.6; O2SAT 96
--- NOTE | 2018-05-03 15:34 | PC.NURSE ---
Pt was unable to keep his appt today but needs a refill on is lorazepam 2mg tabs. Please indicate if you would like me to call in to his pharmacy
[2018-05-10] MEDS: SODIUM CHLORIDE 0.9% SUBCUT (15:38)
[2018-05-10] MEDS: BORTEZOMIB SUBCUT (15:38)
[2018-05-10 16:49] VITALS: BP 160/91; PULSE 70; RESP 18; TEMP 36.7
[2018-05-18 15:44] VITALS: BP 159/94; PULSE 74; RESP 19; TEMP 36.5; O2SAT 98
--- NOTE | 2018-05-18 15:46 | ONC.PN ---
PN -Subjective Interval history: 68-year-old gentleman with multiple myeloma IgG kappa. He presents here today for scheduled follow-up visit. Previously, we talked about stem cell collection. Today patient said that he has decided that he does not like to have the stem cell collected. Recently he contacted Sandeep Brownlee, at [place], [place]. He would like pursue the regimen. Lenalidomide 5 mg daily 2 weeks 2 week off Medrol 40 mg daily, every other day Velcade 1.0 m/m2 subQ once every other week on days 1 and 15 (do not consume any vitamine C containing producs on velcade days Discontinue Bactrum Aspirin 81 mg orally daily to prevent blood clots Decrease acyclovor to 400 mg bid Patient said that he wants to have some less effective therapy but with better tolerability. He refused recommendations from [facility]. He also refused infusion of Zometa. Oncology History 68 year old male with intermediate risk IgG kappa multiple myeloma with a monoclonal IgG of 3.5 gram/deciliter and a serum free light chain that is greater than 100 and as well as a bone marrow biopsy that shows 85% infiltration by abnormal plasma cells. He had a free kappa of approximately 350 and free lambda of 3.5 with a ratio of 100 and baseline. He does have a mild anemia with a hemoglobin level of 11.5. His skeletal survey did not show any lytic lesions but his PET scan showed some areas of heterogeneous uptake in the marrow. Borderline normal creatinine 1.2 and calcium at baseline. 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 FISH panel negative for high risk abnormalities including chromosome 17 and chromosome 14 after a shins. Initial treatment with VRD was started on November 22, 2017 with Revlimid starting with a few days delay. Revlimid for initial cycle was 15 mg by mouth daily, three weeks on and 1 week off; Velcade subcutaneously 1.5 mg per sq meter weekly without break. Dexamethasone 20 mg orally once a week on the day of Velcade. Patient developed a generalized rash with 1 week after taking Revlimid which was then held. Revlimid was re-initiated at a lower dosage of 5 mg daily 2 weeks on and 1 week off since January 05, 2018 and he is able to tolerate without any rash. Patient also developed early onset of symptoms of peripheral neuropathy likely due to Velcade, therefore the dosage was reduced to 1.3 mg per sq meter on 01/10/2018 and then per patient's request further decreased to 1 mg per sq meter since 01/23/2018. The patient was evaluated by Dr. Patricia Henriquez at [facility] on 03/07/2018. Dr. Patricia Henriquez had a long discussion with the patient regarding the treatment course with RVD. The regimen RVD was also adjusted as follows: Revlimid 10 mg once a day 3 weeks on and 1 week off, Velcade 1 milligrams/m2 weekly 3 weeks on and 1 week off and dexamethasone 20 mg the day of the Velcade and the day after the Velcade injection. - Patient Self-Reported Symptoms SR Constitution: Fatigue/Malaise SR eye issues: Vision changes, Eye pain SR ears, nose, mouth, throat issues: Ears ringing SR Cardiovascular issues: Extreme swelling SR Genitourinary issues: Frequent urination SR Musculoskeletal issues: Joint pain or swelling, Difficulty walking SR Neuro issues: Numbness or tingling - Additional ROS All systems PM: reviewed and no additional remarkable complaints except as stated Home Medications and Allergies Home Medications Medication Instructions Recorded Confirmed Type lisinopril 10 mg PO QDAY #0 05/31/16 05/18/18 History aspirin 162 mg PO DAILY 09/22/17 05/18/18 History acyclovir 800 mg PO BID 03/29/18 05/18/18 History clotrimazole 10 mg MUCOUS MEMBRANE 5XD 03/29/18 05/18/18 History febuxostat [Uloric] 40 mg PO DAILY 03/29/18 05/18/18 History pyridoxine (vitamin B6) 100 mg PO BID 03/29/18 05/18/18 History colchicine 0.6 mg PO DAILY 04/26/18 05/18/18 History lorazepam 2 mg PO PRN PRN #30 tab 05/05/18 05/18/18 Rx lenalidomide 5 mg PO DAILY #14 cap 05/18/18 Rx Allergies Allergy/AdvReac Type Severity Reaction Status Date / Time No Known Drug Allergies Allergy Verified 09/22/17 16:09 Exam Vital signs: Last Vital Signs Temp 97.7 F 05/18/18 15:44 Pulse 74 05/18/18 15:44 Resp 19 05/18/18 15:44 BP 159/94 H 05/18/18 15:44 Pulse Ox 98 02/01/19 15:44 ECOG 1 Narrative: Constitutional: WDWN, NAD, average body habitus, well groomed, pleasant and cooperative. HEENT: NCAT, EOMI, PERRLA, anicteric sclera, no hearing difficulty Neck: Supple, symmetrical, and tracheal midline; No palpable thyromegaly and no palpable lymph nodes. Respiratory: No use of accessory muscles. Clear to auscultation, and no wheezes or rales or rubs. Cardiovascular: Regular rate and rhythm, S1 and S2 normal, no murmurs gallops or rubs. No JVD. No pitting edema of lower extremities. Abdomen: Soft, nontender, non-distended, bowel sounds normal, no palpable organomegaly, no hernia, no palpable masses. Lower extremities: No palpable pedal edema. Lymphatic: no palpable lymph nodes in the neck, axillae, or groins. Musculoskeletal: normal gait and station, no clubbing, no cyanosis, no pitting edema. Skin: no rashes, no ulcers, no petechiae Neurological: Awake and alert and oriented x3. CN II-XII grossly intact. No focal motor or sensory deficit. Psychiatric: Good judgment, good insight, normal affect, normal thought process, cooperative, no depression, no anxiety. Results - Labs Laboratory Last Values WBC 6.4 X10^3/uL (4.5-11.0) 04/19/18 13:21 RBC 4.61 X10^6/uL (4.5-5.9) 04/19/18 13:21 Hgb 14.3 g/dL (13.5-17.5) 04/19/18 13:21 Hct 42.4 % (41-53) 04/19/18 13:21 MCV 91.9 fL (80-100) 04/19/18 13:21 MCH 31.1 PG (26-34) 04/19/18 13:21 MCHC 33.9 % (30-36) 04/19/18 13:21 RDW 16.0 % (11.6-14.8) H 04/19/18 13:21 Plt Count 182 X10^3/uL (150-400) 04/19/18 13:21 Neut % (Auto) 80.0 % (50-75) H 04/19/18 13:21 Lymph % (Auto) 12.0 % (25-40) L 04/19/18 13:21 [place] % (Auto) 5.7 % (3-14) 04/19/18 13:21 Eos % (Auto) 1.8 % (2-4) L 04/19/18 13:21 Baso % (Auto) 0.5 % (0-2) 04/19/18 13:21 Neut # (Auto) 5100 /uL (4037-8047) 04/19/18 13:21 Sodium 139 mmol/L (137-145) 04/19/18 13:21 Potassium 3.9 mmol/L (3.4-5.1) 04/19/18 13:21 Chloride 104 mmol/L (98-107) 04/19/18 13:21 Carbon Dioxide 24 mmol/L (22-32) 04/19/18 13:21 BUN 14 mg/dL (9-20) 04/19/18 13:21 Creatinine 1.00 mg/dL (0.66-1.25) 04/19/18 13:21 Estimated GFR > 60.0 mL/min (>60) 04/19/18 13:21 BUN/Creatinine Ratio 14.0 (6-22) 04/19/18 13:21 Glucose 133 mg/dL (80-110) H 04/19/18 13:21 Calcium 9.1 mg/dL (8.4-10.2) 04/19/18 13:21 Total Bilirubin 0.4 mg/dL (0.2-1.3) 04/19/18 13:21 AST 22 IU/L (17-59) 04/19/18 13:21 ALT 33 IU/L (21-72) 04/19/18 13:21 Alkaline Phosphatase 60 U/L (38-126) 04/19/18 13:21 Lactate Dehydrogenase 383 U/L (313-618) 04/19/18 13:21 Serum Total Protein 6.5 g/dL (6.1-8.1) 04/19/18 13:21 Total Protein 7.1 g/dL (6.3-8.2) 04/19/18 13:21 Albumin 4.0 g/dL (3.8-4.8) 04/19/18 13:21 Globulin 2.8 g/dL (1.7-4.1) 04/19/18 13:21 Albumin/Globulin Ratio 1.5 (1.0-2.8) 04/19/18 13:21 Kpxtf-5-Neiwrvzsj 0.3 g/dL (0.2-0.3) 04/19/18 13:21 Sirxe-8-Dwmxtchew 0.8 g/dL (0.5-0.9) 04/19/18 13:21 Jxks-3-Zszakpsb 0.4 g/dL (0.4-0.6) 04/19/18 13:21 Hctu-4-Uzwtrhcj 0.3 g/dL (0.2-0.5) 04/19/18 13:21 Znpv-5-Vlqlkzvbhnpzc 2.21 mg/L (< 2.52) 04/19/18 13:21 Gamma Globulins 0.7 g/dL (0.8-1.7) L 04/19/18 13:21 Abnorm Protein Band 1 0.4 g/dL (NONE DETECTED) A 04/19/18 13:21 Abnorm Protein Band 2 Not Reportable 04/19/18 13:21 Abn Gamma Band 3 Serum Not Reportable 04/19/18 13:21 PEP Comment See note 04/19/18 13:21 IgG, Serum (MS) 725 mg/dL (694-1618) 04/19/18 13:21 IgA 95 mg/dL (81-463) 04/19/18 13:21 IgM 10 mg/dL (48-271) L 04/19/18 13:21 ROMA & SPEP Interp See note 04/19/18 13:21 Free [place] Chains 23.2 mg/L (3.3-19.4) H 04/19/18 13:21 Free [place] Chain 9.6 mg/L (5.7-26.3) 04/19/18 13:21 Free [place]/Lambda Ratio 2.41 (0.26-1.65) H 04/19/18 13:21 Assessment and Plan (1) Multiple myeloma Problem details: 1. IgG kappa multiple myeloma, intermediate risk, diagnosed after BMA/Bx on 10/31/2017 that shows 85% abnormal plasma cells with complex cytogenetics. PET scan showed some areas of heterogeneous uptake in the marrow. His monoclonal IgG of 3.5 g/dl on 09/23/2017. 2. VRD was started on 11/22/2017: R 15 mg daily, 3 weeks on and 1 week off; Velcade subcutaneously 1.5 mg per sq meter weekly without break. Dexamethasone 20 mg orally once a week on the day of Velcade. He developed a generalized rash with 1 week after taking Revlimid which was then held. Revlimid was re-initiated at 5 mg daily 2 weeks on and 1 week off since 01/05/2018. Velcade was reduced to 1.3 mg per sq meter on 01/10/2018 due to neuropathy, and then per patient's request further decreased to 1 mg per sq meter since 01/23/2018. Assessment: Today I talked with the patient and patient's . Patient has determined to try the regimen from Sandeep Brownlee from [place], [place]. I talked with the patient this is not a common regimen we usually used, and are not in the guideline. Based on my understanding, I think it may be effective but were not sure since there are no clinical trials that have tested this regimen. As long as he is aware of the uncertainty, it would be OK to proceed. Patient and patient's both voiced understanding.Patient apparently is up-to-date. Of note, the patient refused stem cell collection. Patient refused bone marrow transplant. Patient refused infusion recommendation of [facility] Plan: 1. New maintenance regimen to be started on May 31, 2017 start date, 28-day cycle length. Lenalidomide 5 mg daily 2 weeks 2 week off Medrol 40 mg daily, every other day Velcade 1.0 m/m2 subQ once every other week on days 1 and 15 (do not consume any vitamine C containing producs on velcade days 2. Discontinue Bactrum 3. Aspirin 81 mg orally daily to prevent blood clots 4. Decrease acyclovor to 400 mg bid 5. OTC Alpha Lipoic Acid 600 mg daily except te day of velcade 6. RTC C1D1
--- NOTE | 2018-05-18 16:04 | P.PNONC_ITS ---
PN -Subjective Interval history: 68-year-old gentleman with multiple myeloma IgG kappa. He presents here today for scheduled follow-up visit. Previously, we talked about stem cell collection. Today patient said that he has decided that he does not like to have the stem cell collected. Recently he contacted Sandeep Brownlee, at [place], [place]. He would like pursue the regimen. Lenalidomide 5 mg daily 2 weeks 2 week off Medrol 40 mg daily, every other day Velcade 1.0 m/m2 subQ once every other week on days 1 and 15 (do not consume any vitamine C containing producs on velcade days Discontinue Bactrum Aspirin 81 mg orally daily to prevent blood clots Decrease acyclovor to 400 mg bid Patient said that he wants to have some less effective therapy but with better tolerability. He refused recommendations from [facility]. He also refused infusion of Zometa. Oncology History 68 year old male with intermediate risk IgG kappa multiple myeloma with a monoclonal IgG of 3.5 gram/deciliter and a serum free light chain that is greater than 100 and as well as a bone marrow biopsy that shows 85% infiltration by abnormal plasma cells. He had a free kappa of approximately 350 and free lambda of 3.5 with a ratio of 100 and baseline. He does have a mild anemia with a hemoglobin level of 11.5. His skeletal survey did not show any lytic lesions but his PET scan showed some areas of heterogeneous uptake in the marrow. Borderline normal creatinine 1.2 and calcium at baseline. 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 FISH panel negative for high risk abnormalities including chromosome 17 and chromosome 14 after a shins. Initial treatment with VRD was started on November 22, 2017 with Revlimid starting with a few days delay. Revlimid for initial cycle was 15 mg by mouth daily, three weeks on and 1 week off; Velcade subcutaneously 1.5 mg per sq meter weekly without break. Dexamethasone 20 mg orally once a week on the day of Velcade. Patient developed a generalized rash with 1 week after taking Revlimid which was then held. Revlimid was re-initiated at a lower dosage of 5 mg daily 2 weeks on and 1 week off since January 05, 2018 and he is able to tolerate without any rash. Patient also developed early onset of symptoms of peripheral neuropathy likely due to Velcade, therefore the dosage was reduced to 1.3 mg per sq meter on 01/10/2018 and then per patient's request further decreased to 1 mg per sq meter since 01/23/2018. The patient was evaluated by Dr. Patricia Henriquez at [facility] on 03/07/2018. Dr. Patricia Henriquez had a long discussion with the patient regarding the treatment course with RVD. The regimen RVD was also adjusted as follows: Revlimid 10 mg once a day 3 weeks on and 1 week off, Velcade 1 milligrams/m2 weekly 3 weeks on and 1 week off and dexamethasone 20 mg the day of the Velcade and the day after the Velcade injection. - Patient Self-Reported Symptoms SR Constitution: Fatigue/Malaise SR eye issues: Vision changes, Eye pain SR ears, nose, mouth, throat issues: Ears ringing SR Cardiovascular issues: Extreme swelling SR Genitourinary issues: Frequent urination SR Musculoskeletal issues: Joint pain or swelling, Difficulty walking SR Neuro issues: Numbness or tingling - Additional ROS All systems PM: reviewed and no additional remarkable complaints except as stated Home Medications and Allergies Home Medications Medication Instructions Recorded Confirmed Type lisinopril 10 mg PO QDAY #0 05/31/16 05/18/18 History aspirin 162 mg PO DAILY 09/22/17 05/18/18 History acyclovir 800 mg PO BID 03/29/18 05/18/18 History clotrimazole 10 mg MUCOUS MEMBRANE 5XD 03/29/18 05/18/18 History febuxostat [Uloric] 40 mg PO DAILY 03/29/18 05/18/18 History pyridoxine (vitamin B6) 100 mg PO BID 03/29/18 05/18/18 History colchicine 0.6 mg PO DAILY 04/26/18 05/18/18 History lorazepam 2 mg PO PRN PRN #30 tab 05/05/18 05/18/18 Rx lenalidomide 5 mg PO DAILY #14 cap 05/18/18 Rx Allergies Allergy/AdvReac Type Severity Reaction Status Date / Time No Known Drug Allergies Allergy Verified 09/22/17 16:09 Exam Vital signs: Last Vital Signs Temp 97.7 F 05/18/18 15:44 Pulse 74 05/18/18 15:44 Resp 19 05/18/18 15:44 BP 159/94 H 05/18/18 15:44 Pulse Ox 98 02/01/19 15:44 ECOG 1 Narrative: Constitutional: WDWN, NAD, average body habitus, well groomed, pleasant and cooperative. HEENT: NCAT, EOMI, PERRLA, anicteric sclera, no hearing difficulty Neck: Supple, symmetrical, and tracheal midline; No palpable thyromegaly and no palpable lymph nodes. Respiratory: No use of accessory muscles. Clear to auscultation, and no wheezes or rales or rubs. Cardiovascular: Regular rate and rhythm, S1 and S2 normal, no murmurs gallops or rubs. No JVD. No pitting edema of lower extremities. Abdomen: Soft, nontender, non-distended, bowel sounds normal, no palpable organomegaly, no hernia, no palpable masses. Lower extremities: No palpable pedal edema. Lymphatic: no palpable lymph nodes in the neck, axillae, or groins. Musculoskeletal: normal gait and station, no clubbing, no cyanosis, no pitting edema. Skin: no rashes, no ulcers, no petechiae Neurological: Awake and alert and oriented x3. CN II-XII grossly intact. No focal motor or sensory deficit. Psychiatric: Good judgment, good insight, normal affect, normal thought process , cooperative, no depression, no anxiety. Results - Labs Laboratory Last Values WBC 6.4 X10^3/uL (4.5-11.0) 04/19/18 13:21 RBC 4.61 X10^6/uL (4.5-5.9) 04/19/18 13:21 Hgb 14.3 g/dL (13.5-17.5) 04/19/18 13:21 Hct 42.4 % (41-53) 04/19/18 13:21 MCV 91.9 fL (80-100) 04/19/18 13:21 MCH 31.1 PG (26-34) 04/19/18 13:21 MCHC 33.9 % (30-36) 04/19/18 13:21 RDW 16.0 % (11.6-14.8) H 04/19/18 13:21 Plt Count 182 X10^3/uL (150-400) 04/19/18 13:21 Neut % (Auto) 80.0 % (50-75) H 04/19/18 13:21 Lymph % (Auto) 12.0 % (25-40) L 04/19/18 13:21 [place] % (Auto) 5.7 % (3-14) 04/19/18 13:21 Eos % (Auto) 1.8 % (2-4) L 04/19/18 13:21 Baso % (Auto) 0.5 % (0-2) 04/19/18 13:21 Neut # (Auto) 5100 /uL (5476-6166) 04/19/18 13:21 Sodium 139 mmol/L (137-145) 04/19/18 13:21 Potassium 3.9 mmol/L (3.4-5.1) 04/19/18 13:21 Chloride 104 mmol/L (98-107) 04/19/18 13:21 Carbon Dioxide 24 mmol/L (22-32) 04/19/18 13:21 BUN 14 mg/dL (9-20) 04/19/18 13:21 Creatinine 1.00 mg/dL (0.66-1.25) 04/19/18 13:21 Estimated GFR > 60.0 mL/min (>60) 04/19/18 13:21 BUN/Creatinine Ratio 14.0 (6-22) 04/19/18 13:21 Glucose 133 mg/dL (80-110) H 04/19/18 13:21 Calcium 9.1 mg/dL (8.4-10.2) 04/19/18 13:21 Total Bilirubin 0.4 mg/dL (0.2-1.3) 04/19/18 13:21 AST 22 IU/L (17-59) 04/19/18 13:21 ALT 33 IU/L (21-72) 04/19/18 13:21 Alkaline Phosphatase 60 U/L (38-126) 04/19/18 13:21 Lactate Dehydrogenase 383 U/L (313-618) 04/19/18 13:21 Serum Total Protein 6.5 g/dL (6.1-8.1) 04/19/18 13:21 Total Protein 7.1 g/dL (6.3-8.2) 04/19/18 13:21 Albumin 4.0 g/dL (3.8-4.8) 04/19/18 13:21 Globulin 2.8 g/dL (1.7-4.1) 04/19/18 13:21 Albumin/Globulin Ratio 1.5 (1.0-2.8) 04/19/18 13:21 Swwfn-7-Wteshdiuz 0.3 g/dL (0.2-0.3) 04/19/18 13:21 Szioz-3-Doskrbgkx 0.8 g/dL (0.5-0.9) 04/19/18 13:21 Bdyg-9-Zouigovc 0.4 g/dL (0.4-0.6) 04/19/18 13:21 Zwav-3-Ojzfwxpt 0.3 g/dL (0.2-0.5) 04/19/18 13:21 Slfn-5-Umssuskfxgjjs 2.21 mg/L (< 2.52) 04/19/18 13:21 Gamma Globulins 0.7 g/dL (0.8-1.7) L 04/19/18 13:21 Abnorm Protein Band 1 0.4 g/dL (NONE DETECTED) A 04/19/18 13:21 Abnorm Protein Band 2 Not Reportable 04/19/18 13:21 Abn Gamma Band 3 Serum Not Reportable 04/19/18 13:21 PEP Comment See note 04/19/18 13:21 IgG, Serum (MS) 725 mg/dL (694-1618) 04/19/18 13:21 IgA 95 mg/dL (81-463) 04/19/18 13:21 IgM 10 mg/dL (48-271) L 04/19/18 13:21 ROMA & SPEP Interp See note 04/19/18 13:21 Free [place] Light Chains 23.2 mg/L (3.3-19.4) H 04/19/18 13:21 Free Lambda Light Chain 9.6 mg/L (5.7-26.3) 04/19/18 13:21 Free [place]/Lambda Ratio 2.41 (0.26-1.65) H 04/19/18 13:21 Assessment and Plan (1) Multiple myeloma Problem details: 1. IgG kappa multiple myeloma, intermediate risk, diagnosed after BMA/Bx on that shows 85% abnormal plasma cells with complex cytogenetics. PET scan showed some areas of heterogeneous uptake in the marrow. His monoclonal IgG of 3.5 g/dl on 09/23/2017. 2. VRD was started on 11/22/2017: R 15 mg daily, 3 weeks on and 1 week off; Velcade subcutaneously 1.5 mg per sq meter weekly without break. Dexamethasone 20 mg orally once a week on the day of Velcade. He developed a generalized rash with 1 week after taking Revlimid which was then held. Revlimid was re- initiated at 5 mg daily 2 weeks on and 1 week off since 01/05/2018. Velcade was reduced to 1.3 mg per sq meter on 01/10/2018 due to neuropathy, and then per patient's request further decreased to 1 mg per sq meter since 01/23/2018. Assessment: Today I talked with the patient and patient's . Patient has determined to try the regimen from Sandeep Brownlee from [place], [place]. I talked with the patient this is not a common regimen we usually used, and are not in the guideline. Based on my understanding, I think it may be effective but were not sure since there are no clinical trials that have tested this regimen. As long as he is aware of the uncertainty, it would be OK to proceed. Patient and patient's both voiced understanding.Patient apparently is up-to-date. Of note, the patient refused stem cell collection. Patient refused bone marrow transplant. Patient refused infusion recommendation of [facility] Plan: 1. New maintenance regimen to be started on May 31, 2017 start date, 28-day cycle length. Lenalidomide 5 mg daily 2 weeks 2 week off Medrol 40 mg daily, every other day Velcade 1.0 m/m2 subQ once every other week on days 1 and 15 (do not consume any vitamine C containing producs on velcade days 2. Discontinue Bactrum 3. Aspirin 81 mg orally daily to prevent blood clots 4. Decrease acyclovor to 400 mg bid 5. OTC Alpha Lipoic Acid 600 mg daily except te day of velcade 6. RTC C1D1
[2018-05-24 11:22] LABS: Add Manual Diff / Slide Review NO; Basophils Absolute Auto 0 /uL (0-100); Basophils Percent Auto 0.9 % (0-2); Eosinophils Absolute Auto 100 /uL (0-450); Eosinophils Percent Auto 1.5 % (2-4); Hematocrit 39.9 % (41-53); Hemoglobin 13.7 g/dL (13.5-17.5); Lymphocytes Absolute Auto 1500 /uL (1100-4500); Lymphocytes Percent Auto 28.1 % (25-40); Mean Corpuscular HGB Conc 34.3 % (30-36); Mean Corpuscular Hemoglobin 32.2 PG (26-34); Mean Corpuscular Volume 93.7 fL (80-100); Monocytes Absolute Auto 700 /uL (0-900); Monocytes Percent Auto 12.9 % (3-14); Neutrophils Absolute Auto 2900 /uL (1500-7000); Neutrophils Percent Auto 56.6 % (50-75); Platelet Count 171 X10^3/uL (150-400); Red Blood Cell Count 4.26 X10^6/uL (4.5-5.9); Red Cell Distribution Width 19.2 % (11.6-14.8); White Blood Cell Count 5.2 X10^3/uL (4.5-11.0)
[2018-05-24 11:31] LABS: Alanine Aminotransferase 38 IU/L (21-72); Albumin 4.2 g/dL (3.5-5.0); Albumin Globulin Ratio 1.6 (1.0-2.8); Alkaline Phosphatase 52 U/L (38-126); Aspartate Aminotransferase 25 IU/L (17-59); Bilirubin Total 0.6 mg/dL (0.2-1.3); Blood Urea Nitrogen 20 mg/dL (9-20); Calcium 9.1 mg/dL (8.4-10.2); Carbon Dioxide 23 mmol/L (22-32); Chloride 107 mmol/L (98-107); Estimated Glomerular Filt Rate > 60.0 mL/min (>60); Globulin 2.7 g/dL (1.7-4.1); Glucose 110 mg/dL (80-110); HEMOLYSIS 18 (0-50); Potassium 3.8 mmol/L (3.4-5.1); Sodium 139 mmol/L (137-145); Total Protein 6.9 g/dL (6.3-8.2)
[2018-05-24 12:00] LABS: Lactate Dehydrogenase 458 U/L (313-618)
[2018-05-25 14:44] LABS: Beta-2-Microglobulin 2.02 mg/L (< 2.52)
[2018-05-25 17:29] LABS: Free Lambda 6.5 mg/L (5.7-26.3)
[2018-05-26 14:16] LABS: Immunoglobulin G, Quantitative 648 mg/dL (694-1618); Immunoglobulin M, Quantitative 8 mg/dL (48-271)
[2018-05-26 14:16] LABS: Immunoglobulin A 95 mg/dL (81-463)
[2018-05-29 23:19] LABS: Abnormal Protein Band 1 0.3 g/dL (NONE DETECTED); Alpha 1 Globulin 0.2 g/dL (0.2-0.3); Alpha 2 Globulin 0.7 g/dL (0.5-0.9); Beta 1 Globulin 0.4 g/dL (0.4-0.6); Gamma Globulin 0.6 g/dL (0.8-1.7); Protein, Total 6.2 g/dL (6.1-8.1)
[2018-05-30 15:31] LABS: Abnormal Protein Band 1 0.2 g/dL (NONE DETECTED); Albumin 3.9 g/dL (3.8-4.8); Alpha 1 Globulin 0.3 g/dL (0.2-0.3); Alpha 2 Globulin 0.6 g/dL (0.5-0.9); Beta 1 Globulin 0.4 g/dL (0.4-0.6); Gamma Globulin 0.6 g/dL (0.8-1.7); Protein, Total 6.1 g/dL (6.1-8.1)
--- NOTE | 2018-05-31 14:06 | ONC.PN ---
PN -Subjective Interval history: 68-year-old gentleman with multiple myeloma IgG kappa. The patient decided that he does not like to have the stem cell collected. [facility] He also refused infusion of Zometa. He contacted Sandeep Brownlee, at [place], [place]. He would like pursue the regimen. Lenalidomide 5 mg daily 2 weeks 2 week off Medrol 40 mg daily, every other day Velcade 1.0 m/m2 subQ once every other week on days 1 and 15 (do not consume any vitamine C containing producs on velcade days Discontinue Bactrum Aspirin 81 mg orally daily to prevent blood clots Acyclovor to 400 mg bid Patient presents here today for the of day 1 of the new regimen. Patient will get Velcade injection today. Patient has not received methylprednisolone. Therefore he took dexamethasone 20 mg today. And he is planning to start Revlimid 5 mg daily tomorrow 2 weeks on and 1 week off. Clinically patient has not reported any new signs or symptoms. Patient has already scheduled to see Yumiko Brownlee on Monday (May 11, 2018). Oncology History 68 year old male with intermediate risk IgG kappa multiple myeloma with a monoclonal IgG of 3.5 gram/deciliter and a serum free light chain that is greater than 100 and as well as a bone marrow biopsy that shows 85% infiltration by abnormal plasma cells. He had a free kappa of approximately 350 and free lambda of 3.5 with a ratio of 100 and baseline. He does have a mild anemia with a hemoglobin level of 11.5. His skeletal survey did not show any lytic lesions but his PET scan showed some areas of heterogeneous uptake in the marrow. Borderline normal creatinine 1.2 and calcium at baseline. 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 FISH panel negative for high risk abnormalities including chromosome 17 and chromosome 14 after a shins. Initial treatment with VRD was started on November 22, 2017 with Revlimid starting with a few days delay. Revlimid for initial cycle was 15 mg by mouth daily, three weeks on and 1 week off; Velcade subcutaneously 1.5 mg per sq meter weekly without break. Dexamethasone 20 mg orally once a week on the day of Velcade. Patient developed a generalized rash with 1 week after taking Revlimid which was then held. Revlimid was re-initiated at a lower dosage of 5 mg daily 2 weeks on and 1 week off since January 05, 2018 and he is able to tolerate without any rash. Patient also developed early onset of symptoms of peripheral neuropathy likely due to Velcade, therefore the dosage was reduced to 1.3 mg per sq meter on 01/10/2018 and then per patient's request further decreased to 1 mg per sq meter since 01/23/2018. The patient was evaluated by Dr. Patricia Henriquez at [facility] on 03/07/2018. Dr. Patricia Henriquez had a long discussion with the patient regarding the treatment course with RVD. The regimen RVD was also adjusted as follows: Revlimid 10 mg once a day 3 weeks on and 1 week off, Velcade 1 milligrams/m2 weekly 3 weeks on and 1 week off and dexamethasone 20 mg the day of the Velcade and the day after the Velcade injection. - Patient Self-Reported Symptoms SR Constitution: Fatigue/Malaise SR eye issues: Vision changes, Eye pain SR ears, nose, mouth, throat issues: Ears ringing SR Cardiovascular issues: Extreme swelling SR Genitourinary issues: Frequent urination SR Musculoskeletal issues: Joint pain or swelling, Difficulty walking SR Neuro issues: Numbness or tingling - Additional ROS All systems PM: reviewed and no additional remarkable complaints except as stated Home Medications and Allergies Home Medications Medication Instructions Recorded Confirmed Type lisinopril 10 mg PO QDAY #0 05/31/16 05/18/18 History aspirin 162 mg PO DAILY 09/22/17 05/18/18 History acyclovir 800 mg PO BID 03/29/18 05/18/18 History clotrimazole 10 mg MUCOUS MEMBRANE 5XD 03/29/18 05/18/18 History febuxostat [Uloric] 40 mg PO DAILY 03/29/18 05/18/18 History pyridoxine (vitamin B6) 100 mg PO BID 03/29/18 05/18/18 History colchicine 0.6 mg PO DAILY 04/26/18 05/18/18 History lorazepam 2 mg PO PRN PRN #30 tab 05/05/18 05/18/18 Rx lenalidomide 5 mg PO DAILY #14 cap 05/18/18 Rx Allergies Allergy/AdvReac Type Severity Reaction Status Date / Time No Known Drug Allergies Allergy Verified 09/22/17 16:09 Exam Vital signs: Last Vital Signs Temp 98.3 F 05/31/18 14:31 Pulse 63 05/31/18 14:31 Resp 18 05/31/18 14:31 BP 161/98 H 05/31/18 14:31 Pulse Ox 95 05/31/18 14:31 ECOG 1 Narrative: Constitutional: WDWN, NAD, average body habitus, well groomed, pleasant and cooperative. HEENT: NCAT, EOMI, PERRLA, anicteric sclera, no hearing difficulty Neck: Supple, symmetrical, and tracheal midline; No palpable thyromegaly and no palpable lymph nodes. Respiratory: No use of accessory muscles. Clear to auscultation, and no wheezes or rales or rubs. Cardiovascular: Regular rate and rhythm, S1 and S2 normal, no murmurs gallops or rubs. No JVD. No pitting edema of lower extremities. Abdomen: Soft, nontender, non-distended, bowel sounds normal, no palpable organomegaly, no hernia, no palpable masses. Lower extremities: No palpable pedal edema. Lymphatic: no palpable lymph nodes in the neck, axillae, or groins. Musculoskeletal: normal gait and station, no clubbing, no cyanosis, no pitting edema. Skin: no rashes, no ulcers, no petechiae Neurological: Awake and alert and oriented x3. CN II-XII grossly intact. No focal motor or sensory deficit. Psychiatric: Good judgment, good insight, normal affect, normal thought process, cooperative, no depression, no anxiety. Results - Labs Laboratory Last Values WBC 5.2 X10^3/uL (4.5-11.0) 05/24/18 11:17 RBC 4.26 X10^6/uL (4.5-5.9) L 05/24/18 11:17 Hgb 13.7 g/dL (13.5-17.5) 05/24/18 11:17 Hct 39.9 % (41-53) L 05/24/18 11:17 MCV 93.7 fL (80-100) 05/24/18 11:17 MCH 32.2 PG (26-34) 05/24/18 11:17 MCHC 34.3 % (30-36) 05/24/18 11:17 RDW 19.2 % (11.6-14.8) H 05/24/18 11:17 Plt Count 171 X10^3/uL (150-400) 05/24/18 11:17 Neut % (Auto) 56.6 % (50-75) 05/24/18 11:17 Lymph % (Auto) 28.1 % (25-40) 05/24/18 11:17 [place] % (Auto) 12.9 % (3-14) 05/24/18 11:17 Eos % (Auto) 1.5 % (2-4) L 05/24/18 11:17 Baso % (Auto) 0.9 % (0-2) 05/24/18 11:17 Neut # (Auto) 2900 /uL (1033-7030) 05/24/18 11:17 Lymph # (Auto) 1500 /uL (8295-2878) 05/24/18 11:17 [place] # (Auto) 700 /uL (0-900) 05/24/18 11:17 Eos # (Auto) 100 /uL (0-450) 05/24/18 11:17 Baso # (Auto) 0 /uL (0-100) 05/24/18 11:17 Sodium 139 mmol/L (137-145) 05/24/18 11:17 Potassium 3.8 mmol/L (3.4-5.1) 05/24/18 11:17 Chloride 107 mmol/L (98-107) 05/24/18 11:17 Carbon Dioxide 23 mmol/L (22-32) 05/24/18 11:17 BUN 20 mg/dL (9-20) 05/24/18 11:17 Creatinine 1.00 mg/dL (0.66-1.25) 05/24/18 11:17 Estimated GFR > 60.0 mL/min (>60) 05/24/18 11:17 BUN/Creatinine Ratio 20.0 (6-22) 05/24/18 11:17 Glucose 110 mg/dL (80-110) 05/24/18 11:17 Calcium 9.1 mg/dL (8.4-10.2) 05/24/18 11:17 Total Bilirubin 0.6 mg/dL (0.2-1.3) 05/24/18 11:17 AST 25 IU/L (17-59) 05/24/18 11:17 ALT 38 IU/L (21-72) 05/24/18 11:17 Alkaline Phosphatase 52 U/L (38-126) 05/24/18 11:17 Lactate Dehydrogenase 458 U/L (313-618) 05/24/18 11:17 Serum Total Protein 6.1 g/dL (6.1-8.1) 05/24/18 11:17 Total Protein 6.9 g/dL (6.3-8.2) 05/24/18 11:17 Albumin 3.9 g/dL (3.8-4.8) 05/24/18 11:17 Globulin 2.7 g/dL (1.7-4.1) 05/24/18 11:17 Albumin/Globulin Ratio 1.6 (1.0-2.8) 05/24/18 11:17 Nfkgt-0-Nxckjvfia 0.3 g/dL (0.2-0.3) 05/24/18 11:17 Ctaro-4-Ifokjlhef 0.6 g/dL (0.5-0.9) 05/24/18 11:17 Ubwa-3-Qlrzagtc 0.4 g/dL (0.4-0.6) 05/24/18 11:17 Bfoa-8-Vbjiinlj 0.3 g/dL (0.2-0.5) 05/24/18 11:17 Nrxv-1-Sbytzqotdkrkh 2.02 mg/L (< 2.52) 05/24/18 11:17 Gamma Globulins 0.6 g/dL (0.8-1.7) L 05/24/18 11:17 Abnorm Protein Band 1 0.2 g/dL (NONE DETECTED) A 05/24/18 11:17 Abnorm Protein Band 2 Not Reportable 05/24/18 11:17 Abn Gamma Band 3 Serum Not Reportable 05/24/18 11:17 PEP Comment See note 05/24/18 11:17 Urine Total Volume 1300 mL 05/29/18 12:14 U Tot Protein 24h, Calc 130 mg/24 h (<150) 05/29/18 12:14 Protein/Creatinin Ratio 69 mg/g creat (<115) 05/29/18 12:14 Urine Albumin 26 % 05/29/18 12:14 U Random q-1-Ckrmuzfw 5 % 05/29/18 12:14 U Lgdoz-8-Iiftqlak 15 % 05/29/18 12:14 U Beta Globulin 28 % 05/29/18 12:14 U Gamma Globulin 26 % 05/29/18 12:14 Urine PEP Interpret See note 05/29/18 12:14 Urine Creatinine 24 Hr 1.88 g/24 h (0.50-2.15) 05/29/18 12:14 IgG, Serum (MS) 648 mg/dL (694-1618) L 05/24/18 11:17 IgA 95 mg/dL (81-463) 05/24/18 11:30 IgM 8 mg/dL (48-271) L 05/24/18 11:17 ROMA & SPEP Interp See note 05/24/18 11:17 Free [place] Light Chains 22.0 mg/L (3.3-19.4) H 05/24/18 11:30 Free Lambda Light Chain 6.5 mg/L (5.7-26.3) 05/24/18 11:30 Free [place]/Lambda Ratio 3.40 (0.26-1.65) H 05/24/18 11:30 Assessment and Plan (1) Multiple myeloma Problem details: 1. IgG kappa multiple myeloma, intermediate risk, diagnosed after BMA/Bx on 10/31/2017 that shows 85% abnormal plasma cells with complex cytogenetics. PET scan showed some areas of heterogeneous uptake in the marrow. His monoclonal IgG of 3.5 g/dl on 09/23/2017. 2. VRD was started on 11/22/2017: R 15 mg daily, 3 weeks on and 1 week off; Velcade subcutaneously 1.5 mg per sq meter weekly without break. Dexamethasone 20 mg orally once a week on the day of Velcade. He developed a generalized rash with 1 week after taking Revlimid which was then held. Revlimid was re-initiated at 5 mg daily 2 weeks on and 1 week off since 01/05/2018. Velcade was reduced to 1.3 mg per sq meter on 01/10/2018 due to neuropathy, and then per patient's request further decreased to 1 mg per sq meter since 01/23/2018. Assessment: Today is the first day of the new regimen which will include velcade injection 2 mg subcutaneously on day 1 and day 15 of 28 day cycles. Clinically patient has been doing well without any new signs or symptoms. Patient has already scheduled a personal visit with Sandeep Brownlee at [place], [place] on 05/11/2018. Patient himself has planned to start Revlimid tomorrow 5 mg once a day 2 weeks on and 2 weeks off. He did not receive the prescription for methylprednisolone therefore he took dexamethasone 20 mg today. I offered to prescribe methylprednisolone; however patient said that he would like to see Dr. Green first to confirm the dosage before we prescribe. The new RVm regimen is as follows: Lenalidomide 5 mg daily 2 weeks 2 week off Medrol 40 mg daily, every other day Velcade 1.0 m/m2 subQ once every other week on days 1 and 15 Plan: 1. Ok to proceed to C1D1 Velcade 2 mg x1 today 2. Lenalidomide 5 mg daily 2 weeks 2 week off starting tomorrow on 06/01/2018 3. Dex 20 mg x 1 today (already taken). 3. Patient to see Dr. Green at [facility]. 4. Continue Aspirin 81 mg orally daily to prevent blood clots 5. Continue acyclovor to 400 mg bid 5. Continue OTC Alpha Lipoic Acid 600 mg daily except thee day of velcade 6. RTC MD visit in 2 weeks, 06/14/2018, C1D15 Velcade
[2018-05-31 14:31] VITALS: BP 161/98; PULSE 63; RESP 18; TEMP 36.8; O2SAT 95
[2018-05-31] MEDS: SODIUM CHLORIDE 0.9% SUBCUT (15:00)
[2018-05-31] MEDS: BORTEZOMIB SUBCUT (15:00)
[2018-06-01 16:09] LABS: Albumin 26 %; Protein, Total, 24 hr urine 130 mg/24 h (<150); Protein/ Creatinine Ratio 69 mg/g creat (<115); Total Volume 1300 mL
--- NOTE | 2018-06-14 11:03 | ONC.PN ---
PN -Subjective Interval history: He contacted Sandeep Brownlee, at [place], [place]. He would like pursue the regimen: Lenalidomide 5 mg daily 2 weeks 2 week off; Medrol 40 mg daily, every other day; Velcade 1.0 m/m2 subQ once every other week on days 1 and 15 (do not consume any vitamine C containing producs on velcade days), Discontinue Bactrum; Aspirin 81 mg orally daily to prevent blood clots, and Acyclovor to 400 mg bid. On 05/31/2018, she was started on the new regimen. Then, he traveled to [place] and saw Dr. Green on Monday (May 11, 2018). The patient was very happy. Dr. Green recommended the following adjustment: Lenalidomide 5 mg daily for days 1-16, then rest Days 17-28 Medrol 20 mg daily, every other day Discontinue Velcade and change to Ninlaro 3 mg orally on Days 1, 8, and 15, Asprin 81 mg orally daily to present blood clots Acyclovor to 400 mg bid Alpha Lipoic Acid 600 mg orally once daily (do not take on velcade days) Econazole cream for foot fungus. Oncology History 68 year old male with intermediate risk IgG kappa multiple myeloma with a monoclonal IgG of 3.5 gram/deciliter and a serum free light chain that is greater than 100 and as well as a bone marrow biopsy that shows 85% infiltration by abnormal plasma cells. He had a free kappa of approximately 350 and free lambda of 3.5 with a ratio of 100 and baseline. He does have a mild anemia with a hemoglobin level of 11.5. His skeletal survey did not show any lytic lesions but his PET scan showed some areas of heterogeneous uptake in the marrow. Borderline normal creatinine 1.2 and calcium at baseline. 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 FISH panel negative for high risk abnormalities including chromosome 17 and chromosome 14 after a shins. Initial treatment with VRD was started on November 22, 2017 with Revlimid starting with a few days delay. Revlimid for initial cycle was 15 mg by mouth daily, three weeks on and 1 week off; Velcade subcutaneously 1.5 mg per sq meter weekly without break. Dexamethasone 20 mg orally once a week on the day of Velcade. Patient developed a generalized rash with 1 week after taking Revlimid which was then held. Revlimid was re-initiated at a lower dosage of 5 mg daily 2 weeks on and 1 week off since January 05, 2018 and he is able to tolerate without any rash. Patient also developed early onset of symptoms of peripheral neuropathy likely due to Velcade, therefore the dosage was reduced to 1.3 mg per sq meter on 01/10/2018 and then per patient's request further decreased to 1 mg per sq meter since 01/23/2018. The patient was evaluated by Dr. Patricia Henriquez at [facility] on 03/07/2018. Dr. Patricia Henriquez had a long discussion with the patient regarding the treatment course with RVD. The regimen RVD was also adjusted as follows: Revlimid 10 mg once a day 3 weeks on and 1 week off, Velcade 1 milligrams/m2 weekly 3 weeks on and 1 week off and dexamethasone 20 mg the day of the Velcade and the day after the Velcade injection. But later, the patient decided that he does not like to have the stem cell collected. [facility] He also refused infusion of Zometa. - Patient Self-Reported Symptoms SR Constitution: Fatigue/Malaise SR eye issues: Vision changes, Eye pain SR ears, nose, mouth, throat issues: Ears ringing SR Cardiovascular issues: Extreme swelling SR Genitourinary issues: Frequent urination SR Musculoskeletal issues: Joint pain or swelling, Difficulty walking SR Neuro issues: Numbness or tingling - Additional ROS All systems PM: reviewed and no additional remarkable complaints except as stated Home Medications and Allergies Home Medications Medication Instructions Recorded Confirmed Type lisinopril 10 mg PO QDAY #0 05/31/16 05/18/18 History clotrimazole 10 mg MUCOUS MEMBRANE 5XD 03/29/18 05/18/18 History pyridoxine (vitamin B6) 100 mg PO BID 03/29/18 05/18/18 History colchicine 0.6 mg PO DAILY 04/26/18 05/18/18 History lorazepam 2 mg PO PRN PRN #30 tab 05/05/18 05/18/18 Rx Revlimid 5 mg PO DAILY #16 cap 06/14/18 Rx acyclovir 400 mg PO BID 06/14/18 06/14/18 History alpha lipoic acid 600 mg PO DAILY 06/14/18 06/14/18 History aspirin 81 mg PO DAILY 06/14/18 06/14/18 History ixazomib [Ninlaro] 3 mg PO 06/14/18 History ixazomib [Ninlaro] 3 mg PO QWEEK #3 cap 06/14/18 Rx methylprednisolone [Medrol] 20 mg PO Q OTHER DAY #30 tab 06/14/18 Rx Allergies Allergy/AdvReac Type Severity Reaction Status Date / Time No Known Drug Allergies Allergy Verified 09/22/17 16:09 Exam Vital signs: Last Vital Signs Temp 98.2 F 06/14/18 11:15 Pulse 74 06/14/18 11:15 Resp 18 06/14/18 11:15 BP 146/78 H 06/14/18 11:15 Pulse Ox 99 06/14/18 11:15 ECOG 1 Narrative: Constitutional: WDWN, NAD, average body habitus, well groomed, pleasant and cooperative. HEENT: NCAT, EOMI, PERRLA, anicteric sclera, no hearing difficulty Neck: Supple, symmetrical, and tracheal midline; No palpable thyromegaly and no palpable lymph nodes. Respiratory: No use of accessory muscles. Clear to auscultation, and no wheezes or rales or rubs. Cardiovascular: Regular rate and rhythm, S1 and S2 normal, no murmurs gallops or rubs. No JVD. No pitting edema of lower extremities. Abdomen: Soft, nontender, non-distended, bowel sounds normal, no palpable organomegaly, no hernia, no palpable masses. Lower extremities: No palpable pedal edema. Lymphatic: no palpable lymph nodes in the neck, axillae, or groins. Musculoskeletal: normal gait and station, no clubbing, no cyanosis, no pitting edema. Skin: no rashes, no ulcers, no petechiae Neurological: Awake and alert and oriented x3. CN II-XII grossly intact. No focal motor or sensory deficit. Psychiatric: Good judgment, good insight, normal affect, normal thought process, cooperative, no depression, no anxiety. Results - Labs Laboratory Last Values WBC 5.2 X10^3/uL (4.5-11.0) 05/24/18 11:17 RBC 4.26 X10^6/uL (4.5-5.9) L 05/24/18 11:17 Hgb 13.7 g/dL (13.5-17.5) 05/24/18 11:17 Hct 39.9 % (41-53) L 05/24/18 11:17 MCV 93.7 fL (80-100) 05/24/18 11:17 MCH 32.2 PG (26-34) 05/24/18 11:17 MCHC 34.3 % (30-36) 05/24/18 11:17 RDW 19.2 % (11.6-14.8) H 05/24/18 11:17 Plt Count 171 X10^3/uL (150-400) 05/24/18 11:17 Neut % (Auto) 56.6 % (50-75) 05/24/18 11:17 Lymph % (Auto) 28.1 % (25-40) 05/24/18 11:17 [facility] % (Auto) 12.9 % (3-14) 05/24/18 11:17 Eos % (Auto) 1.5 % (2-4) L 05/24/18 11:17 Baso % (Auto) 0.9 % (0-2) 05/24/18 11:17 Neut # (Auto) 2900 /uL (1278-0735) 05/24/18 11:17 Lymph # (Auto) 1500 /uL (7111-3553) 05/24/18 11:17 [facility] # (Auto) 700 /uL (0-900) 05/24/18 11:17 Eos # (Auto) 100 /uL (0-450) 05/24/18 11:17 Baso # (Auto) 0 /uL (0-100) 05/24/18 11:17 Sodium 139 mmol/L (137-145) 05/24/18 11:17 Potassium 3.8 mmol/L (3.4-5.1) 05/24/18 11:17 Chloride 107 mmol/L (98-107) 05/24/18 11:17 Carbon Dioxide 23 mmol/L (22-32) 05/24/18 11:17 BUN 20 mg/dL (9-20) 05/24/18 11:17 Creatinine 1.00 mg/dL (0.66-1.25) 05/24/18 11:17 Estimated GFR > 60.0 mL/min (>60) 05/24/18 11:17 BUN/Creatinine Ratio 20.0 (6-22) 05/24/18 11:17 Glucose 110 mg/dL (80-110) 05/24/18 11:17 Calcium 9.1 mg/dL (8.4-10.2) 05/24/18 11:17 Total Bilirubin 0.6 mg/dL (0.2-1.3) 05/24/18 11:17 AST 25 IU/L (17-59) 05/24/18 11:17 ALT 38 IU/L (21-72) 05/24/18 11:17 Alkaline Phosphatase 52 U/L (38-126) 05/24/18 11:17 Lactate Dehydrogenase 458 U/L (313-618) 05/24/18 11:17 Serum Total Protein 6.1 g/dL (6.1-8.1) 05/24/18 11:17 Total Protein 6.9 g/dL (6.3-8.2) 05/24/18 11:17 Albumin 3.9 g/dL (3.8-4.8) 05/24/18 11:17 Globulin 2.7 g/dL (1.7-4.1) 05/24/18 11:17 Albumin/Globulin Ratio 1.6 (1.0-2.8) 05/24/18 11:17 Cdeix-9-Sfieywsay 0.3 g/dL (0.2-0.3) 05/24/18 11:17 Crbps-9-Kmrjihpbq 0.6 g/dL (0.5-0.9) 05/24/18 11:17 Wwji-6-Naihhmyc 0.4 g/dL (0.4-0.6) 05/24/18 11:17 Xeie-0-Aloqlteh 0.3 g/dL (0.2-0.5) 05/24/18 11:17 Qalv-9-Byvairxxjjsnr 2.02 mg/L (< 2.52) 05/24/18 11:17 Gamma Globulins 0.6 g/dL (0.8-1.7) L 05/24/18 11:17 Abnorm Protein Band 1 0.2 g/dL (NONE DETECTED) A 05/24/18 11:17 Abnorm Protein Band 2 Not Reportable 05/24/18 11:17 Abn Gamma Band 3 Serum Not Reportable 05/24/18 11:17 PEP Comment See note 05/24/18 11:17 Urine Total Volume 1300 mL 05/29/18 12:14 U Tot Protein 24h, Calc 130 mg/24 h (<150) 05/29/18 12:14 Protein/Creatinin Ratio 69 mg/g creat (<115) 05/29/18 12:14 Urine Albumin 26 % 05/29/18 12:14 U Random h-3-Lvxxsyab 5 % 05/29/18 12:14 U Fmbpu-9-Ngiohabn 15 % 05/29/18 12:14 U Beta Globulin 28 % 05/29/18 12:14 U Gamma Globulin 26 % 05/29/18 12:14 Urine PEP Interpret See note 05/29/18 12:14 Urine Creatinine 24 Hr 1.88 g/24 h (0.50-2.15) 05/29/18 12:14 IgG, Serum (MS) 648 mg/dL (694-1618) L 05/24/18 11:17 IgA 95 mg/dL (81-463) 05/24/18 11:30 IgM 8 mg/dL (48-271) L 05/24/18 11:17 ROMA & SPEP Interp See note 05/24/18 11:[address] Light Chains 22.0 mg/L (3.3-19.4) H 05/24/18 11:30 Free Lambda Light Chain 6.5 mg/L (5.7-26.3) 05/24/18 11:[address] [place]/Lambda Ratio 3.40 (0.26-1.65) H 05/24/18 11:30 Assessment and Plan (1) Multiple myeloma Problem details: 1. IgG kappa multiple myeloma, intermediate risk, diagnosed after BMA/Bx on 10/31/2017 that shows 85% abnormal plasma cells with complex cytogenetics. PET scan showed some areas of heterogeneous uptake in the marrow. His monoclonal IgG of 3.5 g/dl on 09/23/2017. 2. VRD was started on 11/22/2017: R 15 mg daily, 3 weeks on and 1 week off; Velcade subcutaneously 1.5 mg per sq meter weekly without break. Dexamethasone 20 mg orally once a week on the day of Velcade. He developed a generalized rash with 1 week after taking Revlimid which was then held. Revlimid was re-initiated at 5 mg daily 2 weeks on and 1 week off since 01/05/2018. Velcade was reduced to 1.3 mg per sq meter on 01/10/2018 due to neuropathy, and then per patient's request further decreased to 1 mg per sq meter since 01/23/2018. Assessment: Today, we talked extensively about the new regimen he brought back from Dr. Munoz. Based on my understanding, this is an effective regimen based on the phase 3 trial, TOURMALINE-MM1 ([place] Journal of Medicine 2016; 374:1621). Patient is planning to go on a vacation to [place] next month. And after discussion, we decided to start in our a when he comes back. Meanwhile patient will start treatment with Revlimid and Metro. Plan: 1. Lenalidomide 5 mg daily for days 1-16, then rest Days 17-28 2. Medrol 20 mg daily, every other day 3. Discontinue Velcade and change to Ninlaro 3 mg orally on Days 1, 8, and 15, 4. Asprin 81 mg orally daily to present blood clots 5. Acyclovor to 400 mg bid 6. Alpha Lipoic Acid 600 mg orally once daily (do not take on velcade days) 7. RTC MD visit in 6 weeks on 07/26/2018 for follow up visit.
--- NOTE | 2018-06-14 11:11 | P.PNONC_ITS ---
PN -Subjective Interval history: He contacted Sandeep Brownlee, at [place], [place]. He would like pursue the regimen: Lenalidomide 5 mg daily 2 weeks 2 week off; Medrol 40 mg daily, every other day; Velcade 1.0 m/m2 subQ once every other week on days 1 and 15 (do not consume any vitamine C containing producs on velcade days), Discontinue Bactrum; Aspirin 81 mg orally daily to prevent blood clots, and Acyclovor to 400 mg bid. On 05/31/2018, she was started on the new regimen. Then, he traveled to [place] and saw Dr. Green on Monday (May 11, 2018). The patient was very happy. Dr. Green recommended the following adjustment: Lenalidomide 5 mg daily for days 1-16, then rest Days 17-28 Medrol 20 mg daily, every other day Discontinue Velcade and change to Ninlaro 3 mg orally on Days 1, 8, and 15, Asprin 81 mg orally daily to present blood clots Acyclovor to 400 mg bid Alpha Lipoic Acid 600 mg orally once daily (do not take on velcade days) Econazole cream for foot fungus. Oncology History 68 year old male with intermediate risk IgG kappa multiple myeloma with a monoclonal IgG of 3.5 gram/deciliter and a serum free light chain that is greater than 100 and as well as a bone marrow biopsy that shows 85% infiltration by abnormal plasma cells. He had a free kappa of approximately 350 and free lambda of 3.5 with a ratio of 100 and baseline. He does have a mild anemia with a hemoglobin level of 11.5. His skeletal survey did not show any lytic lesions but his PET scan showed some areas of heterogeneous uptake in the marrow. Borderline normal creatinine 1.2 and calcium at baseline. 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 FISH panel negative for high risk abnormalities including chromosome 17 and chromosome 14 after a shins. Initial treatment with VRD was started on November 22, 2017 with Revlimid starting with a few days delay. Revlimid for initial cycle was 15 mg by mouth daily, three weeks on and 1 week off; Velcade subcutaneously 1.5 mg per sq meter weekly without break. Dexamethasone 20 mg orally once a week on the day of Velcade. Patient developed a generalized rash with 1 week after taking Revlimid which was then held. Revlimid was re-initiated at a lower dosage of 5 mg daily 2 weeks on and 1 week off since January 05, 2018 and he is able to tolerate without any rash. Patient also developed early onset of symptoms of peripheral neuropathy likely due to Velcade, therefore the dosage was reduced to 1.3 mg per sq meter on 01/10/2018 and then per patient's request further decreased to 1 mg per sq meter since 01/23/2018. The patient was evaluated by Dr. Patricia Henriquez at [facility] on 03/07/2018. Dr. Patricia Henriquez had a long discussion with the patient regarding the treatment course with RVD. The regimen RVD was also adjusted as follows: Revlimid 10 mg once a day 3 weeks on and 1 week off, Velcade 1 milligrams/m2 weekly 3 weeks on and 1 week off and dexamethasone 20 mg the day of the Velcade and the day after the Velcade injection. But later, the patient decided that he does not like to have the stem cell collected. [facility]. He also refused infusion of Zometa. - Patient Self-Reported Symptoms SR Constitution: Fatigue/Malaise SR eye issues: Vision changes, Eye pain SR ears, nose, mouth, throat issues: Ears ringing SR Cardiovascular issues: Extreme swelling SR Genitourinary issues: Frequent urination SR Musculoskeletal issues: Joint pain or swelling, Difficulty walking SR Neuro issues: Numbness or tingling - Additional ROS All systems PM: reviewed and no additional remarkable complaints except as stated Home Medications and Allergies Home Medications Medication Instructions Recorded Confirmed Type lisinopril 10 mg PO QDAY #0 05/31/16 05/18/18 History clotrimazole 10 mg MUCOUS MEMBRANE 5XD 03/29/18 05/18/18 History pyridoxine (vitamin B6) 100 mg PO BID 03/29/18 05/18/18 History colchicine 0.6 mg PO DAILY 04/26/18 05/18/18 History lorazepam 2 mg PO PRN PRN #30 tab 05/05/18 05/18/18 Rx Revlimid 5 mg PO DAILY #16 cap 06/14/18 Rx acyclovir 400 mg PO BID 06/14/18 06/14/18 History alpha lipoic acid 600 mg PO DAILY 06/14/18 06/14/18 History aspirin 81 mg PO DAILY 06/14/18 06/14/18 History ixazomib [Ninlaro] 3 mg PO 06/14/18 History ixazomib [Ninlaro] 3 mg PO QWEEK #3 cap 06/14/18 Rx methylprednisolone [Medrol] 20 mg PO Q OTHER DAY #30 tab 06/14/18 Rx Allergies Allergy/AdvReac Type Severity Reaction Status Date / Time No Known Drug Allergies Allergy Verified 09/22/17 16:09 Exam Vital signs: Last Vital Signs Temp 98.2 F 06/14/18 11:15 Pulse 74 06/14/18 11:15 Resp 18 06/14/18 11:15 BP 146/78 H 06/14/18 11:15 Pulse Ox 99 06/14/18 11:15 ECOG 1 Narrative: Constitutional: WDWN, NAD, average body habitus, well groomed, pleasant and cooperative. HEENT: NCAT, EOMI, PERRLA, anicteric sclera, no hearing difficulty Neck: Supple, symmetrical, and tracheal midline; No palpable thyromegaly and no palpable lymph nodes. Respiratory: No use of accessory muscles. Clear to auscultation, and no wheezes or rales or rubs. Cardiovascular: Regular rate and rhythm, S1 and S2 normal, no murmurs gallops or rubs. No JVD. No pitting edema of lower extremities. Abdomen: Soft, nontender, non-distended, bowel sounds normal, no palpable organomegaly, no hernia, no palpable masses. Lower extremities: No palpable pedal edema. Lymphatic: no palpable lymph nodes in the neck, axillae, or groins. Musculoskeletal: normal gait and station, no clubbing, no cyanosis, no pitting edema. Skin: no rashes, no ulcers, no petechiae Neurological: Awake and alert and oriented x3. CN II-XII grossly intact. No focal motor or sensory deficit. Psychiatric: Good judgment, good insight, normal affect, normal thought process, cooperative, no depression, no anxiety. Results - Labs Laboratory Last Values WBC 5.2 X10^3/uL (4.5-11.0) 05/24/18 11:17 RBC 4.26 X10^6/uL (4.5-5.9) L 05/24/18 11:17 Hgb 13.7 g/dL (13.5-17.5) 05/24/18 11:17 Hct 39.9 % (41-53) L 05/24/18 11:17 MCV 93.7 fL (80-100) 05/24/18 11:17 MCH 32.2 PG (26-34) 05/24/18 11:17 MCHC 34.3 % (30-36) 05/24/18 11:17 RDW 19.2 % (11.6-14.8) H 05/24/18 11:17 Plt Count 171 X10^3/uL (150-400) 05/24/18 11:17 Neut % (Auto) 56.6 % (50-75) 05/24/18 11:17 Lymph % (Auto) 28.1 % (25-40) 05/24/18 11:17 [place] % (Auto) 12.9 % (3-14) 05/24/18 11:17 Eos % (Auto) 1.5 % (2-4) L 05/24/18 11:17 Baso % (Auto) 0.9 % (0-2) 05/24/18 11:17 Neut # (Auto) 2900 /uL (5112-7120) 05/24/18 11:17 Lymph # (Auto) 1500 /uL (5741-7073) 05/24/18 11:17 [place] # (Auto) 700 /uL (0-900) 05/24/18 11:17 Eos # (Auto) 100 /uL (0-450) 05/24/18 11:17 Baso # (Auto) 0 /uL (0-100) 05/24/18 11:17 Sodium 139 mmol/L (137-145) 05/24/18 11:17 Potassium 3.8 mmol/L (3.4-5.1) 05/24/18 11:17 Chloride 107 mmol/L (98-107) 05/24/18 11:17 Carbon Dioxide 23 mmol/L (22-32) 05/24/18 11:17 BUN 20 mg/dL (9-20) 05/24/18 11:17 Creatinine 1.00 mg/dL (0.66-1.25) 05/24/18 11:17 Estimated GFR > 60.0 mL/min (>60) 05/24/18 11:17 BUN/Creatinine Ratio 20.0 (6-22) 05/24/18 11:17 Glucose 110 mg/dL (80-110) 05/24/18 11:17 Calcium 9.1 mg/dL (8.4-10.2) 05/24/18 11:17 Total Bilirubin 0.6 mg/dL (0.2-1.3) 05/24/18 11:17 AST 25 IU/L (17-59) 05/24/18 11:17 ALT 38 IU/L (21-72) 05/24/18 11:17 Alkaline Phosphatase 52 U/L (38-126) 05/24/18 11:17 Lactate Dehydrogenase 458 U/L (313-618) 05/24/18 11:17 Serum Total Protein 6.1 g/dL (6.1-8.1) 05/24/18 11:17 Total Protein 6.9 g/dL (6.3-8.2) 05/24/18 11:17 Albumin 3.9 g/dL (3.8-4.8) 05/24/18 11:17 Globulin 2.7 g/dL (1.7-4.1) 05/24/18 11:17 Albumin/Globulin Ratio 1.6 (1.0-2.8) 05/24/18 11:17 Ockbx-2-Xythpvdnb 0.3 g/dL (0.2-0.3) 05/24/18 11:17 Uqvnv-0-Vztzaiugg 0.6 g/dL (0.5-0.9) 05/24/18 11:17 Hcag-1-Lhlhqxro 0.4 g/dL (0.4-0.6) 05/24/18 11:17 Iuxb-2-Riggwyzf 0.3 g/dL (0.2-0.5) 05/24/18 11:17 Buqk-4-Osylupsnrsvbs 2.02 mg/L (< 2.52) 05/24/18 11:17 Gamma Globulins 0.6 g/dL (0.8-1.7) L 05/24/18 11:17 Abnorm Protein Band 1 0.2 g/dL (NONE DETECTED) A 05/24/18 11:17 Abnorm Protein Band 2 Not Reportable 05/24/18 11:17 Abn Gamma Band 3 Serum Not Reportable 05/24/18 11:17 PEP Comment See note 05/24/18 11:17 Urine Total Volume 1300 mL 05/29/18 12:14 U Tot Protein 24h, Calc 130 mg/24 h (<150) 05/29/18 12:14 Protein/Creatinin Ratio 69 mg/g creat (<115) 05/29/18 12:14 Urine Albumin 26 % 05/29/18 12:14 U Random k-6-Lkqcikja 5 % 05/29/18 12:14 U Uoxza-5-Iyrylctf 15 % 05/29/18 12:14 U Beta Globulin 28 % 05/29/18 12:14 U Gamma Globulin 26 % 05/29/18 12:14 Urine PEP Interpret See note 05/29/18 12:14 Urine Creatinine 24 Hr 1.88 g/24 h (0.50-2.15) 05/29/18 12:14 IgG, Serum (MS) 648 mg/dL (694-1618) L 05/24/18 11:17 IgA 95 mg/dL (81-463) 05/24/18 11:30 IgM 8 mg/dL (48-271) L 05/24/18 11:17 ROMA & SPEP Interp See note 05/24/18 11:17 Free [place] Light Chains 22.0 mg/L (3.3-19.4) H 05/24/18 11:30 Free Lambda Light Chain 6.5 mg/L (5.7-26.3) 05/24/18 11:30 Free [place]/Lambda Ratio 3.40 (0.26-1.65) H 05/24/18 11:30 Assessment and Plan (1) Multiple myeloma Problem details: 1. IgG kappa multiple myeloma, intermediate risk, diagnosed after BMA/Bx on 10/31/2017 that shows 85% abnormal plasma cells with complex cytogenetics. PET scan showed some areas of heterogeneous uptake in the marrow. His monoclonal IgG of 3.5 g/dl on 09/23/2017. 2. VRD was started on 11/22/2017: R 15 mg daily, 3 weeks on and 1 week off; Velcade subcutaneously 1.5 mg per sq meter weekly without break. Dexamethasone 20 mg orally once a week on the day of Velcade. He developed a generalized rash with 1 week after taking Revlimid which was then held. Revlimid was re-initiated at 5 mg daily 2 weeks on and 1 week off since 01/05/2018. Velcade was reduced to 1.3 mg per sq meter on 01/10/2018 due to neuropathy, and then per patient's request further decreased to 1 mg per sq meter since 01/23/2018. Assessment: Today, we talked extensively about the new regimen he brought back from Dr. Munoz. Based on my understanding, this is an effective regimen based on the phase 3 trial, TOURMALINE-MM1 ([place] Journal of Medicine 2016; 374:1621). Patient is planning to go on a vacation to [place] next month. And after discussion, we decided to start in our a when he comes back. Meanwhile patient will start treatment with Revlimid and Metro. Plan: 1. Lenalidomide 5 mg daily for days 1-16, then rest Days 17-28 2. Medrol 20 mg daily, every other day 3. Discontinue Velcade and change to Ninlaro 3 mg orally on Days 1, 8, and 15, 4. Asprin 81 mg orally daily to present blood clots 5. Acyclovor to 400 mg bid 6. Alpha Lipoic Acid 600 mg orally once daily (do not take on velcade days) 7. RTC MD visit in 6 weeks on 07/26/2018 for follow up visit.
[2018-06-14 11:15] VITALS: BP 146/78; PULSE 74; RESP 18; TEMP 36.8; O2SAT 99
--- NOTE | 2018-06-19 16:29 | PC.NURSE ---
Martha moscoso faxed to [facility], [facility]
--- NOTE | 2018-06-27 13:51 | ONC.SCHED ---
Patient requested RX from Dr. Swenson for Uloric Acid for his gout. I spoke with Clementina in triage who told me she had already told him we couldn't write it for him as we are not treating him for that condition. I called patient back and advised him to follow up with Dr. Henriquez in [place] who originally wrote his script
--- NOTE | 2018-07-05 09:14 | PC.NURSE ---
Per pts request, Medrol refill called into [facility], no change to sig but quantity increased to 75 with [address] Swenson
--- NOTE | 2018-07-11 16:00 | PC.NURSE ---
Let pt know that his RX for Ginalaro was filled by [facility]. This public relations writer told pt to call [facility] to schedule delivery. Pt states Okay, I will. I have their card.
--- NOTE | 2018-07-25 14:51 | PC.NURSE ---
Received message from [facility] inquiring if pt would be having them fill his RX for Ninlaro. Spoke with pt and he reported he would contact [facility] to make arrangements for medication fill and delivery. [facility] phone number provided to pt.
--- NOTE | 2018-07-25 15:56 | PC.NURSE ---
Per Pepe from [facility], pt's Ninlaro RX has been scheduled with pt and shipped.
[2018-07-26 10:58] LABS: Add Manual Diff / Slide Review NO; Basophils Absolute Auto 100 /uL (0-100); Basophils Percent Auto 1.3 % (0-2); Eosinophils Absolute Auto 100 /uL (0-450); Eosinophils Percent Auto 1.2 % (2-4); Hematocrit 41.9 % (41-53); Hemoglobin 14.8 g/dL (13.5-17.5); Lymphocytes Absolute Auto 1600 /uL (1100-4500); Mean Corpuscular HGB Conc 35.3 % (30-36); Mean Corpuscular Hemoglobin 33.8 PG (26-34); Mean Corpuscular Volume 95.7 fL (80-100); Monocytes Absolute Auto 500 /uL (0-900); Monocytes Percent Auto 11.1 % (3-14); Neutrophils Absolute Auto 2500 /uL (1500-7000); Neutrophils Percent Auto 53.4 % (50-75); Platelet Count 216 X10^3/uL (150-400); Red Blood Cell Count 4.38 X10^6/uL (4.5-5.9); Red Cell Distribution Width 14.4 % (11.6-14.8); White Blood Cell Count 4.7 X10^3/uL (4.5-11.0)
[2018-07-26 11:00] VITALS: BP 172/100; PULSE 74; RESP 18; TEMP 36.2; O2SAT 97
--- NOTE | 2018-07-26 11:14 | ONC.PN ---
PN -Subjective Interval history: He contacted Sandeep Brownlee, at [place], [place]. Then, he traveled to [place] and saw Dr. Green on Monday (May 11, 2018). The patient was very happy. Dr. Green recommended the following adjustment: Lenalidomide 5 mg daily for days 1-16, then rest Days 17-28 Medrol 20 mg daily, every other day Discontinue Velcade and change to Ninlaro 3 mg orally on Days 1, 8, and 15, Asprin 81 mg orally daily to present blood clots Acyclovor to 400 mg bid Alpha Lipoic Acid 600 mg orally once daily (do not take on velcade days) Econazole cream for foot fungus. Patient just came back from [place] vacation. Overall he has been doing well except gout attack while at [facility]. He took Cochicine 0.6 mg tid for one day. His gout was at the left big toe and left heel, red and pain and swelling. He is taking uloric acid for gout prophy. He took cochicine and it works. Patient has not started taking Ninlara yet. We discussed during his previous visit here that I prefer that he start Ninlara here at [place] such that I can follow as far as the complications and side effects are concerned. Patient is about to start a new cycle of lenalidomide. Oncology History 68 year old male with intermediate risk IgG kappa multiple myeloma with a monoclonal IgG of 3.5 gram/deciliter and a serum free light chain that is greater than 100 and as well as a bone marrow biopsy that shows 85% infiltration by abnormal plasma cells. He had a free kappa of approximately 350 and free lambda of 3.5 with a ratio of 100 and baseline. He does have a mild anemia with a hemoglobin level of 11.5. His skeletal survey did not show any lytic lesions but his PET scan showed some areas of heterogeneous uptake in the marrow. Borderline normal creatinine 1.2 and calcium at baseline. 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 FISH panel negative for high risk abnormalities including chromosome 17 and chromosome 14 after a shins. Initial treatment with VRD was started on November 22, 2017 with Revlimid starting with a few days delay. Revlimid for initial cycle was 15 mg by mouth daily, three weeks on and 1 week off; Velcade subcutaneously 1.5 mg per sq meter weekly without break. Dexamethasone 20 mg orally once a week on the day of Velcade. Patient developed a generalized rash with 1 week after taking Revlimid which was then held. Revlimid was re-initiated at a lower dosage of 5 mg daily 2 weeks on and 1 week off since January 05, 2018 and he is able to tolerate without any rash. Patient also developed early onset of symptoms of peripheral neuropathy likely due to Velcade, therefore the dosage was reduced to 1.3 mg per sq meter on 01/10/2018 and then per patient's request further decreased to 1 mg per sq meter since 01/23/2018. The patient was evaluated by Dr. Patricia Henriquez at [facility] on 03/07/2018. Dr. Patricia Henriquez had a long discussion with the patient regarding the treatment course with RVD. The regimen RVD was also adjusted as follows: Revlimid 10 mg once a day 3 weeks on and 1 week off, Velcade 1 milligrams/m2 weekly 3 weeks on and 1 week off and dexamethasone 20 mg the day of the Velcade and the day after the Velcade injection. But later, the patient decided that he does not like to have the stem cell collected. [facility] He also refused infusion of Zometa. - Patient Self-Reported Symptoms SR Constitution: Fatigue/Malaise SR eye issues: Vision changes, Eye pain SR ears, nose, mouth, throat issues: Ears ringing SR Cardiovascular issues: Extreme swelling SR Genitourinary issues: Frequent urination SR Musculoskeletal issues: Joint pain or swelling, Difficulty walking SR Neuro issues: Numbness or tingling - Additional ROS All systems PM: reviewed and no additional remarkable complaints except as stated Home Medications and Allergies Home Medications Medication Instructions Recorded Confirmed Type lisinopril 10 mg PO QDAY #0 05/31/16 05/18/18 History clotrimazole 10 mg MUCOUS MEMBRANE 5XD 03/29/18 05/18/18 History colchicine 0.6 mg PO DAILY 04/26/18 05/18/18 History lorazepam 2 mg PO PRN PRN #30 tab 05/05/18 05/18/18 Rx Revlimid 5 mg PO DAILY #16 cap 06/14/18 Rx acyclovir 400 mg PO BID 06/14/18 06/14/18 History alpha lipoic acid 600 mg PO DAILY 06/14/18 06/14/18 History aspirin 81 mg PO DAILY 06/14/18 06/14/18 History ixazomib [Ninlaro] 3 mg PO 06/14/18 History ixazomib [Ninlaro] 3 mg PO QWEEK #3 cap 06/14/18 Rx methylprednisolone [Medrol] 20 mg PO Q OTHER DAY #30 tab 06/25/18 Rx calcium carbonate-vitamin D3 1 tab PO DAILY 07/26/18 07/26/18 History [Calcium 500 With D] cholecalciferol (vitamin D3) DAILY 07/26/18 History [Vitamin D3] colchicine 0.6 mg PO Q8H PRN #30 tab 07/26/18 Rx Allergies Allergy/AdvReac Type Severity Reaction Status Date / Time No Known Drug Allergies Allergy Verified 09/22/17 16:09 Exam Vital signs: Vital Signs Temp Pulse Resp BP Pulse Ox 07/26/18 11:00 97.1 F L 74 18 172/100 H 97 Intake and Output 07/25/18 07/26/18 07/26/18 23:59 07:59 15:59 Other: Weight 91 kg Patient Weight 07/26/18 23:59 Weight 91 kg ECOG 1 Narrative: Constitutional: WDWN, NAD, average body habitus, well groomed, pleasant and cooperative. HEENT: NCAT, EOMI, PERRLA, anicteric sclera, no hearing difficulty Neck: Supple, symmetrical, and tracheal midline; No palpable thyromegaly and no palpable lymph nodes. Respiratory: No use of accessory muscles. Clear to auscultation, and no wheezes or rales or rubs. Cardiovascular: Regular rate and rhythm, S1 and S2 normal, no murmurs gallops or rubs. No JVD. No pitting edema of lower extremities. Abdomen: Soft, nontender, non-distended, bowel sounds normal, no palpable organomegaly, no hernia, no palpable masses. Lower extremities: No palpable pedal edema. Lymphatic: no palpable lymph nodes in the neck, axillae Musculoskeletal: normal gait and station, no clubbing, no cyanosis, no pitting edema. Skin: no rashes, no ulcers, no petechiae Neurological: Awake and alert and oriented x3. CN II-XII grossly intact. No focal motor or sensory deficit. Psychiatric: Good judgment, good insight, normal affect, normal thought process, cooperative, no depression, no anxiety. Results - Labs Laboratory Last Values WBC 4.7 X10^3/uL (4.5-11.0) 07/26/18 10:45 RBC 4.38 X10^6/uL (4.5-5.9) L 07/26/18 10:45 Hgb 14.8 g/dL (13.5-17.5) 07/26/18 10:45 Hct 41.9 % (41-53) 07/26/18 10:45 MCV 95.7 fL (80-100) 07/26/18 10:45 MCH 33.8 PG (26-34) 07/26/18 10:45 MCHC 35.3 % (30-36) 07/26/18 10:45 RDW 14.4 % (11.6-14.8) 07/26/18 10:45 Plt Count 216 X10^3/uL (150-400) 07/26/18 10:45 Neut % (Auto) 53.4 % (50-75) 07/26/18 10:45 Lymph % (Auto) 33.0 % (25-40) 07/26/18 10:45 [place] % (Auto) 11.1 % (3-14) 07/26/18 10:45 Eos % (Auto) 1.2 % (2-4) L 07/26/18 10:45 Baso % (Auto) 1.3 % (0-2) 07/26/18 10:45 Neut # (Auto) 2500 /uL (3348-7589) 07/26/18 10:45 Lymph # (Auto) 1600 /uL (2921-5560) 07/26/18 10:45 [place] # (Auto) 500 /uL (0-900) 07/26/18 10:45 Eos # (Auto) 100 /uL (0-450) 07/26/18 10:45 Baso # (Auto) 100 /uL (0-100) 07/26/18 10:45 Sodium 139 mmol/L (137-145) 07/26/18 10:45 Potassium 3.7 mmol/L (3.4-5.1) 07/26/18 10:45 Chloride 105 mmol/L (98-107) 07/26/18 10:45 Carbon Dioxide 24 mmol/L (22-32) 07/26/18 10:45 BUN 18 mg/dL (9-20) 07/26/18 10:45 Creatinine 0.90 mg/dL (0.66-1.25) 07/26/18 10:45 Estimated GFR > 60.0 mL/min (>60) 07/26/18 10:45 BUN/Creatinine Ratio 20.0 (6-22) 07/26/18 10:45 Glucose 135 mg/dL (80-110) H 07/26/18 10:45 Calcium 9.1 mg/dL (8.4-10.2) 07/26/18 10:45 Total Bilirubin 0.3 mg/dL (0.2-1.3) 07/26/18 10:45 AST 23 IU/L (17-59) 07/26/18 10:45 ALT 42 IU/L (21-72) 07/26/18 10:45 Alkaline Phosphatase 49 U/L (38-126) 07/26/18 10:45 Lactate Dehydrogenase 427 U/L (313-618) 07/26/18 10:45 Serum Total Protein 6.1 g/dL (6.1-8.1) 05/24/18 11:17 Total Protein 6.5 g/dL (6.3-8.2) 07/26/18 10:45 Albumin 4.2 g/dL (3.5-5.0) 07/26/18 10:45 Globulin 2.3 g/dL (1.7-4.1) 07/26/18 10:45 Albumin/Globulin Ratio 1.8 (1.0-2.8) 07/26/18 10:45 Fyukp-5-Ibjrmxbrm 0.3 g/dL (0.2-0.3) 05/24/18 11:17 Revug-5-Vemkkfoot 0.6 g/dL (0.5-0.9) 05/24/18 11:17 Fbzu-3-Kuxfepva 0.4 g/dL (0.4-0.6) 05/24/18 11:17 Slpr-2-Gksxvsyg 0.3 g/dL (0.2-0.5) 05/24/18 11:17 Hgqx-1-Vxbzbphzopnqt 2.02 mg/L (< 2.52) 05/24/18 11:17 Gamma Globulins 0.6 g/dL (0.8-1.7) L 05/24/18 11:17 Abnorm Protein Band 1 0.2 g/dL (NONE DETECTED) A 05/24/18 11:17 Abnorm Protein Band 2 Not Reportable 05/24/18 11:17 Abn Gamma Band 3 Serum Not Reportable 05/24/18 11:17 PEP Comment See note 05/24/18 11:17 Urine Total Volume 1300 mL 05/29/18 12:14 U Tot Protein 24h, Calc 130 mg/24 h (<150) 05/29/18 12:14 Protein/Creatinin Ratio 69 mg/g creat (<115) 05/29/18 12:14 Urine Albumin 26 % 05/29/18 12:14 U Random q-9-Pdxstiyq 5 % 05/29/18 12:14 U Zsrou-2-Tvrbyyma 15 % 05/29/18 12:14 U Beta Globulin 28 % 05/29/18 12:14 U Gamma Globulin 26 % 05/29/18 12:14 Urine PEP Interpret See note 05/29/18 12:14 Urine Creatinine 24 Hr 1.88 g/24 h (0.50-2.15) 05/29/18 12:14 IgG, Serum (MS) 648 mg/dL (694-1618) L 05/24/18 11:17 IgA 95 mg/dL (81-463) 05/24/18 11:30 IgM 8 mg/dL (48-271) L 05/24/18 11:17 ROMA & SPEP Interp See note 05/24/18 11:17 Free [place] Light Chains 22.0 mg/L (3.3-19.4) H 05/24/18 11:30 Free Lambda Light Chain 6.5 mg/L (5.7-26.3) 05/24/18 11:30 Free [place]/Lambda Ratio 3.40 (0.26-1.65) H 05/24/18 11:30 Assessment and Plan (1) Multiple myeloma Assessment: 1. IgG kappa multiple myeloma, intermediate risk, diagnosed after BMA/Bx on 10/31/2017 that shows 85% abnormal plasma cells with complex cytogenetics. PET scan showed some areas of heterogeneous uptake in the marrow. His monoclonal IgG of 3.5 g/dl on 09/23/2017. 2. VRD was started on 11/22/2017: R 15 mg daily, 3 weeks on and 1 week off; Velcade subcutaneously 1.5 mg per sq meter weekly without break. Dexamethasone 20 mg orally once a week on the day of Velcade. He developed a generalized rash with 1 week after taking Revlimid which was then held. Revlimid was re-initiated at 5 mg daily 2 weeks on and 1 week off since 01/05/2018. Velcade was reduced to 1.3 mg per sq meter on 01/10/2018 due to neuropathy, and then per patient's request further decreased to 1 mg per sq meter since 01/23/2018. 3. [address] Munoz who recommended regiman with Lenalidomide/Medro/Nihlaro. Based on my understanding, this is an effective regimen based on the phase 3 trial, TOURMALINE-MM1 ([place] Journal of Medicine 2016; 374:1621). During his previous visit, after discussion, we decided to start ninlar when he comes back from [facility]. Patient is about to start a new cycle of Revlimid on 07/30/2018. I reviewed the possible side effects with the patient. A pull up the product insert of nihlaro. The main concern is about thrombocytopenia and gastrointestinal toxicity as well as peripheral neuropathy. I talked with him that I prefer to monitor every 2 weeks during the first 1-2 months of treatment. Patient voiced understanding. Plan: 1. Continue Lenalidomide 5 mg daily for days 1-16, then rest Days 17-28 2. Continjue Medrol 20 mg daily, every other day 3. Start Ninlara 3 mg on day 1, 8, 15, Day 1 = 07/30/2018 4. Continue Asprin 81 mg orally daily to present blood clots 5. Continue Acyclovor to 400 mg bid 6. Continue Alpha Lipoic Acid 600 mg orally once daily (do not take on velcade days) 7. RTC MD visit in 2 weeks on 08/13/2018 for follow up visit, CBC, CMP. (2) Gout Refill Colchicine 0.6 mg x 30#, 0.6 mg tid prn for gout attack.
[2018-07-26 11:19] LABS: Alanine Aminotransferase 42 IU/L (21-72); Albumin 4.2 g/dL (3.5-5.0); Albumin Globulin Ratio 1.8 (1.0-2.8); Alkaline Phosphatase 49 U/L (38-126); Aspartate Aminotransferase 23 IU/L (17-59); Bilirubin Total 0.3 mg/dL (0.2-1.3); Blood Urea Nitrogen 18 mg/dL (9-20); Calcium 9.1 mg/dL (8.4-10.2); Carbon Dioxide 24 mmol/L (22-32); Chloride 105 mmol/L (98-107); Estimated Glomerular Filt Rate > 60.0 mL/min (>60); Globulin 2.3 g/dL (1.7-4.1); Glucose 135 mg/dL (80-110); HEMOLYSIS 20 (0-50); Lactate Dehydrogenase 427 U/L (313-618); Potassium 3.7 mmol/L (3.4-5.1); Sodium 139 mmol/L (137-145); Total Protein 6.5 g/dL (6.3-8.2)
--- NOTE | 2018-07-26 11:27 | P.PNONC_ITS ---
PN -Subjective Interval history: He contacted Sandeep Brownlee, at [place], [place]. Then, he traveled to [place] and saw Dr. Green on Monday (May 11, 2018). The patient was very happy. Dr. Green recommended the following adjustment: Lenalidomide 5 mg daily for days 1-16, then rest Days 17-28 Medrol 20 mg daily, every other day Discontinue Velcade and change to Ninlaro 3 mg orally on Days 1, 8, and 15, Asprin 81 mg orally daily to present blood clots Acyclovor to 400 mg bid Alpha Lipoic Acid 600 mg orally once daily (do not take on velcade days) Econazole cream for foot fungus. Patient just came back from [place] vacation. Overall he has been doing well except gout attack while at [facility]. He took Cochicine 0.6 mg tid for one day. His gout was at the left big toe and left heel, red and pain and swelling. He is taking uloric acid for gout prophy. He took cochicine and it works. Patient has not started taking Ninlara yet. We discussed during his previous visit here that I prefer that he start Ninlara here at [place] such that I can follow as far as the complications and side effects are concerned. Patient is about to start a new cycle of lenalidomide. Oncology History 68 year old male with intermediate risk IgG kappa multiple myeloma with a monoclonal IgG of 3.5 gram/deciliter and a serum free light chain that is greater than 100 and as well as a bone marrow biopsy that shows 85% infiltration by abnormal plasma cells. He had a free kappa of approximately 350 and free lambda of 3.5 with a ratio of 100 and baseline. He does have a mild anemia with a hemoglobin level of 11.5. His skeletal survey did not show any lytic lesions but his PET scan showed some areas of heterogeneous uptake in the marrow. Borderline normal creatinine 1.2 and calcium at baseline. 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 FISH panel negative for high risk abnormalities including chromosome 17 and chromosome 14 after a shins. Initial treatment with VRD was started on November 22, 2017 with Revlimid starting with a few days delay. Revlimid for initial cycle was 15 mg by mouth daily, three weeks on and 1 week off; Velcade subcutaneously 1.5 mg per sq meter weekly without break. Dexamethasone 20 mg orally once a week on the day of Velcade. Patient developed a generalized rash with 1 week after taking Revlimid which was then held. Revlimid was re-initiated at a lower dosage of 5 mg daily 2 weeks on and 1 week off since January 05, 2018 and he is able to tolerate without any rash. Patient also developed early onset of symptoms of peripheral neuropathy likely due to Velcade, therefore the dosage was reduced to 1.3 mg per sq meter on 01/10/2018 and then per patient's request further decreased to 1 mg per sq meter since 01/23/2018. The patient was evaluated by Dr. Patricia Henriquez at [facility] on 03/07/2018. Dr. Patricia Henriquez had a long discussion with the patient regarding the treatment course with RVD. The regimen RVD was also adjusted as follows: Revlimid 10 mg once a day 3 weeks on and 1 week off, Velcade 1 milligrams/m2 weekly 3 weeks on and 1 week off and dexamethasone 20 mg the day of the Velcade and the day after the Velcade injection. But later, the patient decided that he does not like to have the stem cell collected. [facility]. He also refused infusion of Zometa. - Patient Self-Reported Symptoms SR Constitution: Fatigue/Malaise SR eye issues: Vision changes, Eye pain SR ears, nose, mouth, throat issues: Ears ringing SR Cardiovascular issues: Extreme swelling SR Genitourinary issues: Frequent urination SR Musculoskeletal issues: Joint pain or swelling, Difficulty walking SR Neuro issues: Numbness or tingling - Additional ROS All systems PM: reviewed and no additional remarkable complaints except as stated Home Medications and Allergies Home Medications Medication Instructions Recorded Confirmed Type lisinopril 10 mg PO QDAY #0 05/31/16 05/18/18 History clotrimazole 10 mg MUCOUS MEMBRANE 5XD 03/29/18 05/18/18 History colchicine 0.6 mg PO DAILY 04/26/18 05/18/18 History lorazepam 2 mg PO PRN PRN #30 tab 05/05/18 05/18/18 Rx Revlimid 5 mg PO DAILY #16 cap 06/14/18 Rx acyclovir 400 mg PO BID 06/14/18 06/14/18 History alpha lipoic acid 600 mg PO DAILY 06/14/18 06/14/18 History aspirin 81 mg PO DAILY 06/14/18 06/14/18 History ixazomib [Ninlaro] 3 mg PO 06/14/18 History ixazomib [Ninlaro] 3 mg PO QWEEK #3 cap 06/14/18 Rx methylprednisolone [Medrol] 20 mg PO Q OTHER DAY #30 tab 06/25/18 Rx calcium carbonate-vitamin D3 1 tab PO DAILY 07/26/18 07/26/18 History [Calcium 500 With D] cholecalciferol (vitamin D3) DAILY 07/26/18 History [Vitamin D3] colchicine 0.6 mg PO Q8H PRN #30 tab 07/26/18 Rx Allergies Allergy/AdvReac Type Severity Reaction Status Date / Time No Known Drug Allergies Allergy Verified 09/22/17 16:09 Exam Vital signs: Vital Signs Temp Pulse Resp BP Pulse Ox 07/26/18 11:00 97.1 F L 74 18 172/100 H 97 Intake and Output 07/25/18 07/26/18 07/26/18 23:59 07:59 15:59 Other: Weight 91 kg Patient Weight 07/26/18 23:59 Weight 91 kg ECOG 1 Narrative: Constitutional: WDWN, NAD, average body habitus, well groomed, pleasant and cooperative. HEENT: NCAT, EOMI, PERRLA, anicteric sclera, no hearing difficulty Neck: Supple, symmetrical, and tracheal midline; No palpable thyromegaly and no palpable lymph nodes. Respiratory: No use of accessory muscles. Clear to auscultation, and no wheezes or rales or rubs. Cardiovascular: Regular rate and rhythm, S1 and S2 normal, no murmurs gallops or rubs. No JVD. No pitting edema of lower extremities. Abdomen: Soft, nontender, non-distended, bowel sounds normal, no palpable organomegaly, no hernia, no palpable masses. Lower extremities: No palpable pedal edema. Lymphatic: no palpable lymph nodes in the neck, axillae Musculoskeletal: normal gait and station, no clubbing, no cyanosis, no pitting edema. Skin: no rashes, no ulcers, no petechiae Neurological: Awake and alert and oriented x3. CN II-XII grossly intact. No focal motor or sensory deficit. Psychiatric: Good judgment, good insight, normal affect, normal thought process, cooperative, no depression, no anxiety. Results - Labs Laboratory Last Values WBC 4.7 X10^3/uL (4.5-11.0) 07/26/18 10:45 RBC 4.38 X10^6/uL (4.5-5.9) L 07/26/18 10:45 Hgb 14.8 g/dL (13.5-17.5) 07/26/18 10:45 Hct 41.9 % (41-53) 07/26/18 10:45 MCV 95.7 fL (80-100) 07/26/18 10:45 MCH 33.8 PG (26-34) 07/26/18 10:45 MCHC 35.3 % (30-36) 07/26/18 10:45 RDW 14.4 % (11.6-14.8) 07/26/18 10:45 Plt Count 216 X10^3/uL (150-400) 07/26/18 10:45 Neut % (Auto) 53.4 % (50-75) 07/26/18 10:45 Lymph % (Auto) 33.0 % (25-40) 07/26/18 10:45 [place] % (Auto) 11.1 % (3-14) 07/26/18 10:45 Eos % (Auto) 1.2 % (2-4) L 07/26/18 10:45 Baso % (Auto) 1.3 % (0-2) 07/26/18 10:45 Neut # (Auto) 2500 /uL (0500-5237) 07/26/18 10:45 Lymph # (Auto) 1600 /uL (3968-9654) 07/26/18 10:45 [place] # (Auto) 500 /uL (0-900) 07/26/18 10:45 Eos # (Auto) 100 /uL (0-450) 07/26/18 10:45 Baso # (Auto) 100 /uL (0-100) 07/26/18 10:45 Sodium 139 mmol/L (137-145) 07/26/18 10:45 Potassium 3.7 mmol/L (3.4-5.1) 07/26/18 10:45 Chloride 105 mmol/L (98-107) 07/26/18 10:45 Carbon Dioxide 24 mmol/L (22-32) 07/26/18 10:45 BUN 18 mg/dL (9-20) 07/26/18 10:45 Creatinine 0.90 mg/dL (0.66-1.25) 07/26/18 10:45 Estimated GFR > 60.0 mL/min (>60) 07/26/18 10:45 BUN/Creatinine Ratio 20.0 (6-22) 07/26/18 10:45 Glucose 135 mg/dL (80-110) H 07/26/18 10:45 Calcium 9.1 mg/dL (8.4-10.2) 07/26/18 10:45 Total Bilirubin 0.3 mg/dL (0.2-1.3) 07/26/18 10:45 AST 23 IU/L (17-59) 07/26/18 10:45 ALT 42 IU/L (21-72) 07/26/18 10:45 Alkaline Phosphatase 49 U/L (38-126) 07/26/18 10:45 Lactate Dehydrogenase 427 U/L (313-618) 07/26/18 10:45 Serum Total Protein 6.1 g/dL (6.1-8.1) 05/24/18 11:17 Total Protein 6.5 g/dL (6.3-8.2) 07/26/18 10:45 Albumin 4.2 g/dL (3.5-5.0) 07/26/18 10:45 Globulin 2.3 g/dL (1.7-4.1) 07/26/18 10:45 Albumin/Globulin Ratio 1.8 (1.0-2.8) 07/26/18 10:45 Itdlu-2-Yscyasuwc 0.3 g/dL (0.2-0.3) 05/24/18 11:17 Cpxas-5-Rhvhzjolz 0.6 g/dL (0.5-0.9) 05/24/18 11:17 Susx-7-Oasmepiy 0.4 g/dL (0.4-0.6) 05/24/18 11:17 Atdp-9-Ixogztyr 0.3 g/dL (0.2-0.5) 05/24/18 11:17 Sopk-4-Culcgjfswoenj 2.02 mg/L (< 2.52) 05/24/18 11:17 Gamma Globulins 0.6 g/dL (0.8-1.7) L 05/24/18 11:17 Abnorm Protein Band 1 0.2 g/dL (NONE DETECTED) A 05/24/18 11:17 Abnorm Protein Band 2 Not Reportable 05/24/18 11:17 Abn Gamma Band 3 Serum Not Reportable 05/24/18 11:17 PEP Comment See note 05/24/18 11:17 Urine Total Volume 1300 mL 05/29/18 12:14 U Tot Protein 24h, Calc 130 mg/24 h (<150) 05/29/18 12:14 Protein/Creatinin Ratio 69 mg/g creat (<115) 05/29/18 12:14 Urine Albumin 26 % 05/29/18 12:14 U Random y-4-Xqmqmtob 5 % 05/29/18 12:14 U Gwzes-3-Bnetmagp 15 % 05/29/18 12:14 U Beta Globulin 28 % 05/29/18 12:14 U Gamma Globulin 26 % 05/29/18 12:14 Urine PEP Interpret See note 05/29/18 12:14 Urine Creatinine 24 Hr 1.88 g/24 h (0.50-2.15) 05/29/18 12:14 IgG, Serum (MS) 648 mg/dL (694-1618) L 05/24/18 11:17 IgA 95 mg/dL (81-463) 05/24/18 11:30 IgM 8 mg/dL (48-271) L 05/24/18 11:17 ROMA & SPEP Interp See note 05/24/18 11:17 Free [place] Light Chains 22.0 mg/L (3.3-19.4) H 05/24/18 11:30 Free Lambda Light Chain 6.5 mg/L (5.7-26.3) 05/24/18 11:30 Free [place]/Lambda Ratio 3.40 (0.26-1.65) H 05/24/18 11:30 Assessment and Plan (1) Multiple myeloma Assessment: 1. IgG kappa multiple myeloma, intermediate risk, diagnosed after BMA/Bx on 10/31/2017 that shows 85% abnormal plasma cells with complex cytogenetics. PET scan showed some areas of heterogeneous uptake in the marrow. His monoclonal IgG of 3.5 g/dl on 09/23/2017. 2. VRD was started on 11/22/2017: R 15 mg daily, 3 weeks on and 1 week off; Velcade subcutaneously 1.5 mg per sq meter weekly without break. Dexamethasone 20 mg orally once a week on the day of Velcade. He developed a generalized rash with 1 week after taking Revlimid which was then held. Revlimid was re-initiated at 5 mg daily 2 weeks on and 1 week off since 01/05/2018. Velcade was reduced to 1.3 mg per sq meter on 01/10/2018 due to neuropathy, and then per patient's request further decreased to 1 mg per sq meter since 01/23/2018. 3. He [address] Dr[address] Munoz who recommended regiman with Lenalidomide/ Medro/Nihlaro. Based on my understanding, this is an effective regimen based on the phase 3 trial, TOURMALINE-MM1 ([place] Journal of Medicine 2016; 374:1621). During his previous visit, after discussion, we decided to start ninlar when he comes [place] [facility]. Patient is about to start a new cycle of Revlimid on 07/30/2018. I reviewed the possible side effects with the patient. A pull up the product insert of nihlaro. The main concern is about thrombocytopenia and gastrointestinal toxicity as well as peripheral neuropathy. I talked with him that I prefer to monitor every 2 weeks during the first 1-2 months of treatment. Patient voiced understanding. Plan: 1. Continue Lenalidomide 5 mg daily for days 1-16, then rest Days 17-28 2. Continjue Medrol 20 mg daily, every other day 3. Start Ninlara 3 mg on day 1, 8, 15, Day 1 = 07/30/2018 4. Continue Asprin 81 mg orally daily to present blood clots 5. Continue Acyclovor to 400 mg bid 6. Continue Alpha Lipoic Acid 600 mg orally once daily (do not take on velcade days) 7. RTC MD visit in 2 weeks on 08/13/2018 for follow up visit, CBC, CMP. (2) Gout Refill Colchicine 0.6 mg x 30#, 0.6 mg tid prn for gout attack.
[2018-07-28 15:19] LABS: Free Kappa Light Chain 17.4 mg/L (3.3-19.4); Free Kappa/ Lambda Ratio 3.29 (0.26-1.65); Free Lambda 5.3 mg/L (5.7-26.3); Immunoglobulin A 119 mg/dL (81-463); Immunoglobulin G, Quantitative 710 mg/dL (694-1618)
[2018-07-28 15:33] LABS: Immunoglobulin M, Quantitative 9 mg/dL (48-271)
[2018-07-29 11:49] LABS: Beta-2-Microglobulin 1.87 mg/L (< 2.52)
[2018-07-30 14:40] LABS: Abnormal Protein Band 1 0.3 g/dL (NONE DETECTED); Albumin 3.9 g/dL (3.8-4.8); Alpha 1 Globulin 0.2 g/dL (0.2-0.3); Alpha 2 Globulin 0.6 g/dL (0.5-0.9); Beta 1 Globulin 0.4 g/dL (0.4-0.6); Gamma Globulin 0.7 g/dL (0.8-1.7); Protein, Total 6.1 g/dL (6.1-8.1)
[2018-08-10 13:02] LABS: Add Manual Diff / Slide Review NO; Basophils Absolute Auto 0 /uL (0-100); Basophils Percent Auto 0.6 % (0-2); Eosinophils Absolute Auto 100 /uL (0-450); Eosinophils Percent Auto 1.4 % (2-4); Lymphocytes Absolute Auto 2000 /uL (1100-4500); Lymphocytes Percent Auto 26.2 % (25-40); Mean Corpuscular HGB Conc 34.9 % (30-36); Mean Corpuscular Hemoglobin 33.6 PG (26-34); Mean Corpuscular Volume 96.3 fL (80-100); Monocytes Absolute Auto 1000 /uL (0-900); Monocytes Percent Auto 13.2 % (3-14); Neutrophils Absolute Auto 4500 /uL (1500-7000); Neutrophils Percent Auto 58.6 % (50-75); Platelet Count 179 X10^3/uL (150-400); Red Blood Cell Count 4.47 X10^6/uL (4.5-5.9); Red Cell Distribution Width 13.8 % (11.6-14.8); White Blood Cell Count 7.7 X10^3/uL (4.5-11.0)
[2018-08-10 13:26] LABS: Alanine Aminotransferase 36 IU/L (21-72); Albumin 4.3 g/dL (3.5-5.0); Albumin Globulin Ratio 1.8 (1.0-2.8); Alkaline Phosphatase 48 U/L (38-126); Aspartate Aminotransferase 23 IU/L (17-59); Bilirubin Total 0.5 mg/dL (0.2-1.3); Blood Urea Nitrogen 16 mg/dL (9-20); Calcium 9.3 mg/dL (8.4-10.2); Carbon Dioxide 24 mmol/L (22-32); Chloride 104 mmol/L (98-107); Estimated Glomerular Filt Rate > 60.0 mL/min (>60); Globulin 2.4 g/dL (1.7-4.1); Glucose 99 mg/dL (80-110); HEMOLYSIS 26 (0-50); Potassium 3.7 mmol/L (3.4-5.1); Sodium 137 mmol/L (137-145); Total Protein 6.7 g/dL (6.3-8.2)
[2018-08-13 12:26] VITALS: BP 141/83; PULSE 70; RESP 18; TEMP 36.8; O2SAT 99
--- NOTE | 2018-08-13 12:30 | ONC.PN ---
PN -Subjective Interval history: He contacted Sandeep Brownlee, at [place], [place]. Then, he traveled to [place] and saw Dr. Green on Monday (May 11, 2018). The patient was very happy. Dr. Green recommended the following adjustment: Lenalidomide 5 mg daily for days 1-16, then rest Days 17-28 Medrol 20 mg daily, every other day Discontinue Velcade and change to Ninlaro 3 mg orally on Days 1, 8, and 15, Asprin 81 mg orally daily to present blood clots Acyclovor to 400 mg bid Alpha Lipoic Acid 600 mg orally once daily (do not take on velcade days) Econazole cream for foot fungus. Patient started the above regimen on 07/30/2018. Up until now patient has tolerated very well. Patient reported only mild tingling of bottom of the feet for a couple of weeks. He talked with Dr. Camarena about this and was told that things are looking stable. Oncology History 68 year old male with intermediate risk IgG kappa multiple myeloma with a monoclonal IgG of 3.5 gram/deciliter and a serum free light chain that is greater than 100 and as well as a bone marrow biopsy that shows 85% infiltration by abnormal plasma cells. He had a free kappa of approximately 350 and free lambda of 3.5 with a ratio of 100 and baseline. He does have a mild anemia with a hemoglobin level of 11.5. His skeletal survey did not show any lytic lesions but his PET scan showed some areas of heterogeneous uptake in the marrow. Borderline normal creatinine 1.2 and calcium at baseline. 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 FISH panel negative for high risk abnormalities including chromosome 17 and chromosome 14 after a shins. Initial treatment with VRD was started on November 22, 2017 with Revlimid starting with a few days delay. Revlimid for initial cycle was 15 mg by mouth daily, three weeks on and 1 week off; Velcade subcutaneously 1.5 mg per sq meter weekly without break. Dexamethasone 20 mg orally once a week on the day of Velcade. Patient developed a generalized rash with 1 week after taking Revlimid which was then held. Revlimid was re-initiated at a lower dosage of 5 mg daily 2 weeks on and 1 week off since January 05, 2018 and he is able to tolerate without any rash. Patient also developed early onset of symptoms of peripheral neuropathy likely due to Velcade, therefore the dosage was reduced to 1.3 mg per sq meter on 01/10/2018 and then per patient's request further decreased to 1 mg per sq meter since 01/23/2018. The patient was evaluated by Dr. Patricia Henriquez at [facility] on 03/07/2018. Dr. Patricia Henriquez had a long discussion with the patient regarding the treatment course with RVD. The regimen RVD was also adjusted as follows: Revlimid 10 mg once a day 3 weeks on and 1 week off, Velcade 1 milligrams/m2 weekly 3 weeks on and 1 week off and dexamethasone 20 mg the day of the Velcade and the day after the Velcade injection. But later, the patient decided that he does not like to have the stem cell collected. [facility]. He also refused infusion of Zometa. - Patient Self-Reported Symptoms SR Constitution: Fatigue/Malaise SR eye issues: Vision changes, Eye pain SR ears, nose, mouth, throat issues: Ears ringing SR Cardiovascular issues: Extreme swelling SR Genitourinary issues: Frequent urination SR Musculoskeletal issues: Joint pain or swelling, Difficulty walking SR Neuro issues: Numbness or tingling - Additional ROS All systems PM: reviewed and no additional remarkable complaints except as stated Home Medications and Allergies Home Medications Medication Instructions Recorded Confirmed Type lisinopril 10 mg PO QDAY #0 05/31/16 05/18/18 History clotrimazole 10 mg MUCOUS MEMBRANE 5XD 03/29/18 05/18/18 History colchicine 0.6 mg PO DAILY 04/26/18 05/18/18 History Revlimid 5 mg PO DAILY #16 cap 06/14/18 Rx acyclovir 400 mg PO BID 06/14/18 06/14/18 History alpha lipoic acid 600 mg PO DAILY 06/14/18 06/14/18 History aspirin 81 mg PO DAILY 06/14/18 06/14/18 History ixazomib [Ninlaro] 3 mg PO 06/14/18 History methylprednisolone [Medrol] 20 mg PO Q OTHER DAY #30 tab 06/25/18 Rx calcium carbonate-vitamin D3 1 tab PO DAILY 07/26/18 07/26/18 History [Calcium 500 With D] cholecalciferol (vitamin D3) DAILY 07/26/18 History [Vitamin D3] colchicine 0.6 mg PO Q8H PRN #30 tab 07/26/18 Rx lorazepam 2 mg PO PRN PRN #30 tab 08/13/18 Rx methylprednisolone [Medrol] 20 mg PO Q OTHER DAY #75 tab 08/13/18 Rx Allergies Allergy/AdvReac Type Severity Reaction Status Date / Time No Known Drug Allergies Allergy Verified 09/22/17 16:09 Exam Vital signs: Last Vital Signs Temp 98.2 F 08/13/18 12: Pulse 70 08/13/18 12: Resp 18 08/13/18 12:26 BP 141/83 H 08/13/18 12: Pulse Ox 99 08/13/18 12:26 ECOG 1 Narrative: Constitutional: WDWN, NAD, average body habitus, well groomed, pleasant and cooperative. HEENT: NCAT, EOMI, PERRLA, anicteric sclera, no hearing difficulty Neck: Supple, symmetrical, and tracheal midline; No palpable thyromegaly and no palpable lymph nodes. Respiratory: No use of accessory muscles. Clear to auscultation Cardiovascular: Regular rate and rhythm, S1 and S2 normal, no murmurs gallops or rubs. No JVD. No pitting edema of lower extremities. Abdomen: Soft, nontender, non-distended, bowel sounds normal, no palpable organomegaly, no hernia, no palpable masses. Lower extremities: No palpable pedal edema. Lymphatic: no palpable lymph nodes in the neck, axillae Musculoskeletal: normal gait and station, no clubbing, no cyanosis, no pitting edema. Skin: no rashes, no ulcers, no petechiae Neurological: Awake and alert and oriented x3. CN II-XII grossly intact. No focal motor or sensory deficit. Psychiatric: Good judgment, good insight, normal affect, normal thought process, cooperative, no depression, no anxiety. Results - Labs Laboratory Last Values WBC 7.7 X10^3/uL (4.5-11.0) 08/10/18 12:33 RBC 4.47 X10^6/uL (4.5-5.9) L 08/10/18 12:33 Hgb 15.0 g/dL (13.5-17.5) 08/10/18 12:33 Hct 43.0 % (41-53) 08/10/18 12:33 MCV 96.3 fL (80-100) 08/10/18 12:33 MCH 33.6 PG (26-34) 08/10/18 12:33 MCHC 34.9 % (30-36) 08/10/18 12:33 RDW 13.8 % (11.6-14.8) 08/10/18 12:33 Plt Count 179 X10^3/uL (150-400) 08/10/18 12:33 Neut % (Auto) 58.6 % (50-75) 08/10/18 12:33 Lymph % (Auto) 26.2 % (25-40) 08/10/18 12:33 [place] % (Auto) 13.2 % (3-14) 08/10/18 12:33 Eos % (Auto) 1.4 % (2-4) L 08/10/18 12:33 Baso % (Auto) 0.6 % (0-2) 08/10/18 12:33 Neut # (Auto) 4500 /uL (6141-8131) 08/10/18 12:33 Lymph # (Auto) 2000 /uL (9879-5564) 08/10/18 12:33 [place] # (Auto) 1000 /uL (0-900) H 08/10/18 12:33 Eos # (Auto) 100 /uL (0-450) 08/10/18 12:33 Baso # (Auto) 0 /uL (0-100) 08/10/18 12:33 Sodium 137 mmol/L (137-145) 08/10/18 12:33 Potassium 3.7 mmol/L (3.4-5.1) 08/10/18 12:33 Chloride 104 mmol/L (98-107) 08/10/18 12:33 Carbon Dioxide 24 mmol/L (22-32) 08/10/18 12:33 BUN 16 mg/dL (9-20) 08/10/18 12:33 Creatinine 0.80 mg/dL (0.66-1.25) 08/10/18 12:33 Estimated GFR > 60.0 mL/min (>60) 08/10/18 12:33 BUN/Creatinine Ratio 20.0 (6-22) 08/10/18 12:33 Glucose 99 mg/dL (80-110) 08/10/18 12:33 Calcium 9.3 mg/dL (8.4-10.2) 08/10/18 12:33 Total Bilirubin 0.5 mg/dL (0.2-1.3) 08/10/18 12:33 AST 23 IU/L (17-59) 08/10/18 12:33 ALT 36 IU/L (21-72) 08/10/18 12:33 Alkaline Phosphatase 48 U/L (38-126) 08/10/18 12:33 Lactate Dehydrogenase 427 U/L (313-618) 07/26/18 10:45 Serum Total Protein 6.1 g/dL (6.1-8.1) 07/26/18 10:45 Total Protein 6.7 g/dL (6.3-8.2) 08/10/18 12:33 Albumin 4.3 g/dL (3.5-5.0) 08/10/18 12:33 Globulin 2.4 g/dL (1.7-4.1) 08/10/18 12:33 Albumin/Globulin Ratio 1.8 (1.0-2.8) 08/10/18 12:33 Owrnp-8-Zhjoukako 0.2 g/dL (0.2-0.3) 07/26/18 10:45 Elybn-4-Apnxsigbh 0.6 g/dL (0.5-0.9) 07/26/18 10:45 Fvos-6-Mnvzwqfz 0.4 g/dL (0.4-0.6) 07/26/18 10:45 Izai-5-Fldjtepo 0.3 g/dL (0.2-0.5) 07/26/18 10:45 Itce-5-Ypgsdzxdhbwja 1.87 mg/L (< 2.52) 07/26/18 10:45 Gamma Globulins 0.7 g/dL (0.8-1.7) L 07/26/18 10:45 Abnorm Protein Band 1 0.3 g/dL (NONE DETECTED) A 07/26/18 10:45 Abnorm Protein Band 2 Not Reportable 07/26/18 10:45 Abn Gamma Band 3 Serum Not Reportable 07/26/18 10:45 PEP Comment See note 07/26/18 10:45 Urine Total Volume 1300 mL 05/29/18 12:14 U Tot Protein 24h, Calc 130 mg/24 h (<150) 05/29/18 12:14 Protein/Creatinin Ratio 69 mg/g creat (<115) 05/29/18 12:14 Urine Albumin 26 % 05/29/18 12:14 U Random m-5-Nkzmxlri 5 % 05/29/18 12:14 U Fsnos-4-Jwbzvifs 15 % 05/29/18 12:14 U Beta Globulin 28 % 05/29/18 12:14 U Gamma Globulin 26 % 05/29/18 12:14 Urine PEP Interpret See note 05/29/18 12:14 Urine Creatinine 24 Hr 1.88 g/24 h (0.50-2.15) 05/29/18 12:14 IgG, Serum (MS) 710 mg/dL (694-1618) 07/26/18 10:45 IgA 119 mg/dL (81-463) 07/26/18 10:45 IgM 9 mg/dL (48-271) L 07/26/18 10:45 ROMA & SPEP Interp See note 07/26/18 10:45 Serum Immunofixation See note 07/26/18 10:45 Free [place] Light Chains 17.4 mg/L (3.3-19.4) 07/26/18 10:45 Free Lambda Light Chain 5.3 mg/L (5.7-26.3) L 07/26/18 10:45 Free [place]/Lambda Ratio 3.29 (0.26-1.65) H 07/26/18 10:45 Assessment and Plan (1) Multiple myeloma Overview 1. IgG kappa multiple myeloma, intermediate risk, diagnosed after BMA/Bx on 10/31/2017 that shows 85% abnormal plasma cells with complex cytogenetics. PET scan showed some areas of heterogeneous uptake in the marrow. His monoclonal IgG of 3.5 g/dl on 09/23/2017. 2. VRD was started on 11/22/2017: R 15 mg daily, 3 weeks on and 1 week off; Velcade subcutaneously 1.5 mg per sq meter weekly without break. Dexamethasone 20 mg orally once a week on the day of Velcade. He developed a generalized rash with 1 week after taking Revlimid which was then held. Revlimid was re-initiated at 5 mg daily 2 weeks on and 1 week off since 01/05/2018. Velcade was reduced to 1.3 mg per sq meter on 01/10/2018 due to neuropathy, and then per patient's request further decreased to 1 mg per sq meter since 01/23/2018. 3. He [address] Munoz who recommended regiman with Lenalidomide/Medro/Nihlaro. Based on my understanding, this is an effective regimen based on the phase 3 trial, TOURMALINE-MM1 ([place] Journal of Medicine 2016; 374:1621). Assessment: Patient started the above regimen on 07/30/2018. Up until now patient has tolerated very well. The laboratory tests 11 days after the start of the treatment showed no thrombocytopenia no kidney or liver issues. I talked with him that it is way too early to tell if it is effective or if he is tolerable. Clinically it seems that he is able to tolerate no problems. Today we also talked about possible second opinion to Dr. Price at [facility]. I talked with him that it is close to where he lives and he does not have to travel to [place]. Patient is agreeable I would like to have a second opinion with Dr. Price. Plan: 1. Continue Lenalidomide 5 mg daily for days 1-16, then rest Days 17-28 2. Continjue Medrol 20 mg daily, every other day 3. Start Ninlara 3 mg on day 1, 8, 15, Day 1 = 07/30/2018 4. Continue Asprin 81 mg orally daily to present blood clots 5. Continue Acyclovor to 400 mg bid 6. Continue Alpha Lipoic Acid 600 mg orally once daily (do not take on velcade days) 7. RTC MD visit in 2 weeks on 08/27/2018 for follow up visit, CBC, CMP, MM panel 8. Second opinion with Dr. Price at [facility]. (2) Gout Refill Colchicine 0.6 mg x 30#, 0.6 mg tid prn for gout attack.
--- NOTE | 2018-08-13 12:37 | P.PNONC_ITS ---
PN -Subjective Interval history: He contacted Sandeep Brownlee, at [place], [place]. Then, he traveled to [place] and saw Dr. Green on Monday (May 11, 2018). The patient was very happy. Dr. Green recommended the following adjustment: Lenalidomide 5 mg daily for days 1-16, then rest Days 17-28 Medrol 20 mg daily, every other day Discontinue Velcade and change to Ninlaro 3 mg orally on Days 1, 8, and 15, Asprin 81 mg orally daily to present blood clots Acyclovor to 400 mg bid Alpha Lipoic Acid 600 mg orally once daily (do not take on velcade days) Econazole cream for foot fungus. Patient started the above regimen on 07/30/2018. Up until now patient has tolerated very well. Patient reported only mild tingling of bottom of the feet for a couple of weeks. He talked with Dr. Camarena about this and was told that things are looking stable. Oncology History 68 year old male with intermediate risk IgG kappa multiple myeloma with a monoclonal IgG of 3.5 gram/deciliter and a serum free light chain that is greater than 100 and as well as a bone marrow biopsy that shows 85% infiltration by abnormal plasma cells. He had a free kappa of approximately 350 and free lambda of 3.5 with a ratio of 100 and baseline. He does have a mild anemia with a hemoglobin level of 11.5. His skeletal survey did not show any lytic lesions but his PET scan showed some areas of heterogeneous uptake in the marrow. Borderline normal creatinine 1.2 and calcium at baseline. 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 FISH panel negative for high risk abnormalities including chromosome 17 and chromosome 14 after a shins. Initial treatment with VRD was started on November 22, 2017 with Revlimid starting with a few days delay. Revlimid for initial cycle was 15 mg by mouth daily, three weeks on and 1 week off; Velcade subcutaneously 1.5 mg per sq meter weekly without break. Dexamethasone 20 mg orally once a week on the day of Velcade. Patient developed a generalized rash with 1 week after taking Revlimid which was then held. Revlimid was re-initiated at a lower dosage of 5 mg daily 2 weeks on and 1 week off since January 05, 2018 and he is able to tolerate without any rash. Patient also developed early onset of symptoms of peripheral neuropathy likely due to Velcade, therefore the dosage was reduced to 1.3 mg per sq meter on 01/10/2018 and then per patient's request further decreased to 1 mg per sq meter since 01/23/2018. The patient was evaluated by Dr. Patricia Henriquez at [facility] on 03/07/2018. Dr. Patricia Henriquez had a long discussion with the patient regarding the treatment course with RVD. The regimen RVD was also adjusted as follows: Revlimid 10 mg once a day 3 weeks on and 1 week off, Velcade 1 milligrams/m2 weekly 3 weeks on and 1 week off and dexamethasone 20 mg the day of the Velcade and the day after the Velcade injection. But later, the patient decided that he does not like to have the stem cell collected. [facility] He also refused infusion of Zometa. - Patient Self-Reported Symptoms SR Constitution: Fatigue/Malaise SR eye issues: Vision changes, Eye pain SR ears, nose, mouth, throat issues: Ears ringing SR Cardiovascular issues: Extreme swelling SR Genitourinary issues: Frequent urination SR Musculoskeletal issues: Joint pain or swelling, Difficulty walking SR Neuro issues: Numbness or tingling - Additional ROS All systems PM: reviewed and no additional remarkable complaints except as stated Home Medications and Allergies Home Medications Medication Instructions Recorded Confirmed Type lisinopril 10 mg PO QDAY #0 05/31/16 05/18/18 History clotrimazole 10 mg MUCOUS MEMBRANE 5XD 03/29/18 05/18/18 History colchicine 0.6 mg PO DAILY 04/26/18 05/18/18 History Revlimid 5 mg PO DAILY #16 cap 06/14/18 Rx acyclovir 400 mg PO BID 06/14/18 06/14/18 History alpha lipoic acid 600 mg PO DAILY 06/14/18 06/14/18 History aspirin 81 mg PO DAILY 06/14/18 06/14/18 History ixazomib [Ninlaro] 3 mg PO 06/14/18 History methylprednisolone [Medrol] 20 mg PO Q OTHER DAY #30 tab 06/25/18 Rx calcium carbonate-vitamin D3 1 tab PO DAILY 07/26/18 07/26/18 History [Calcium 500 With D] cholecalciferol (vitamin D3) DAILY 07/26/18 History [Vitamin D3] colchicine 0.6 mg PO Q8H PRN #30 tab 07/26/18 Rx lorazepam 2 mg PO PRN PRN #30 tab 08/13/18 Rx methylprednisolone [Medrol] 20 mg PO Q OTHER DAY #75 tab 08/13/18 Rx Allergies Allergy/AdvReac Type Severity Reaction Status Date / Time No Known Drug Allergies Allergy Verified 09/22/17 16:09 Exam Vital signs: Last Vital Signs Temp 98.2 F 08/13/18 12: Pulse 70 08/13/18 12: Resp 18 08/13/18 12:26 BP 141/83 H 08/13/18 12: Pulse Ox 99 08/13/18 12:26 ECOG 1 Narrative: Constitutional: WDWN, NAD, average body habitus, well groomed, pleasant and cooperative. HEENT: NCAT, EOMI, PERRLA, anicteric sclera, no hearing difficulty Neck: Supple, symmetrical, and tracheal midline; No palpable thyromegaly and no palpable lymph nodes. Respiratory: No use of accessory muscles. Clear to auscultation Cardiovascular: Regular rate and rhythm, S1 and S2 normal, no murmurs gallops or rubs. No JVD. No pitting edema of lower extremities. Abdomen: Soft, nontender, non-distended, bowel sounds normal, no palpable organomegaly, no hernia, no palpable masses. Lower extremities: No palpable pedal edema. Lymphatic: no palpable lymph nodes in the neck, axillae Musculoskeletal: normal gait and station, no clubbing, no cyanosis, no pitting edema. Skin: no rashes, no ulcers, no petechiae Neurological: Awake and alert and oriented x3. CN II-XII grossly intact. No focal motor or sensory deficit. Psychiatric: Good judgment, good insight, normal affect, normal thought process, cooperative, no depression, no anxiety. Results - Labs Laboratory Last Values WBC 7.7 X10^3/uL (4.5-11.0) 08/10/18 12:33 RBC 4.47 X10^6/uL (4.5-5.9) L 08/10/18 12:33 Hgb 15.0 g/dL (13.5-17.5) 08/10/18 12:33 Hct 43.0 % (41-53) 08/10/18 12:33 MCV 96.3 fL (80-100) 08/10/18 12:33 MCH 33.6 PG (26-34) 08/10/18 12:33 MCHC 34.9 % (30-36) 08/10/18 12:33 RDW 13.8 % (11.6-14.8) 08/10/18 12:33 Plt Count 179 X10^3/uL (150-400) 08/10/18 12:33 Neut % (Auto) 58.6 % (50-75) 08/10/18 12:33 Lymph % (Auto) 26.2 % (25-40) 08/10/18 12:33 [place] % (Auto) 13.2 % (3-14) 08/10/18 12:33 Eos % (Auto) 1.4 % (2-4) L 08/10/18 12:33 Baso % (Auto) 0.6 % (0-2) 08/10/18 12:33 Neut # (Auto) 4500 /uL (5956-2624) 08/10/18 12:33 Lymph # (Auto) 2000 /uL (1623-4476) 08/10/18 12:33 [place] # (Auto) 1000 /uL (0-900) H 08/10/18 12:33 Eos # (Auto) 100 /uL (0-450) 08/10/18 12:33 Baso # (Auto) 0 /uL (0-100) 08/10/18 12:33 Sodium 137 mmol/L (137-145) 08/10/18 12:33 Potassium 3.7 mmol/L (3.4-5.1) 08/10/18 12:33 Chloride 104 mmol/L (98-107) 08/10/18 12:33 Carbon Dioxide 24 mmol/L (22-32) 08/10/18 12:33 BUN 16 mg/dL (9-20) 08/10/18 12:33 Creatinine 0.80 mg/dL (0.66-1.25) 08/10/18 12:33 Estimated GFR > 60.0 mL/min (>60) 08/10/18 12:33 BUN/Creatinine Ratio 20.0 (6-22) 08/10/18 12:33 Glucose 99 mg/dL (80-110) 08/10/18 12:33 Calcium 9.3 mg/dL (8.4-10.2) 08/10/18 12:33 Total Bilirubin 0.5 mg/dL (0.2-1.3) 08/10/18 12:33 AST 23 IU/L (17-59) 08/10/18 12:33 ALT 36 IU/L (21-72) 08/10/18 12:33 Alkaline Phosphatase 48 U/L (38-126) 08/10/18 12:33 Lactate Dehydrogenase 427 U/L (313-618) 07/26/18 10:45 Serum Total Protein 6.1 g/dL (6.1-8.1) 07/26/18 10:45 Total Protein 6.7 g/dL (6.3-8.2) 08/10/18 12:33 Albumin 4.3 g/dL (3.5-5.0) 08/10/18 12:33 Globulin 2.4 g/dL (1.7-4.1) 08/10/18 12:33 Albumin/Globulin Ratio 1.8 (1.0-2.8) 08/10/18 12:33 Rovvv-3-Vznvcdywh 0.2 g/dL (0.2-0.3) 07/26/18 10:45 Coxqx-9-Lncgqslgs 0.6 g/dL (0.5-0.9) 07/26/18 10:45 Kbys-3-Supilpka 0.4 g/dL (0.4-0.6) 07/26/18 10:45 Nmua-0-Vwnuqplr 0.3 g/dL (0.2-0.5) 07/26/18 10:45 Yslz-9-Yltrumxcnbxod 1.87 mg/L (< 2.52) 07/26/18 10:45 Gamma Globulins 0.7 g/dL (0.8-1.7) L 07/26/18 10:45 Abnorm Protein Band 1 0.3 g/dL (NONE DETECTED) A 07/26/18 10:45 Abnorm Protein Band 2 Not Reportable 07/26/18 10:45 Abn Gamma Band 3 Serum Not Reportable 07/26/18 10:45 PEP Comment See note 07/26/18 10:45 Urine Total Volume 1300 mL 05/29/18 12:14 U Tot Protein 24h, Calc 130 mg/24 h (<150) 05/29/18 12:14 Protein/Creatinin Ratio 69 mg/g creat (<115) 05/29/18 12:14 Urine Albumin 26 % 05/29/18 12:14 U Random p-9-Nivjrspz 5 % 05/29/18 12:14 U Vjqyo-7-Xmdhcmph 15 % 05/29/18 12:14 U Beta Globulin 28 % 05/29/18 12:14 U Gamma Globulin 26 % 05/29/18 12:14 Urine PEP Interpret See note 05/29/18 12:14 Urine Creatinine 24 Hr 1.88 g/24 h (0.50-2.15) 05/29/18 12:14 IgG, Serum (MS) 710 mg/dL (694-1618) 07/26/18 10:45 IgA 119 mg/dL (81-463) 07/26/18 10:45 IgM 9 mg/dL (48-271) L 07/26/18 10:45 ROMA & SPEP Interp See note 07/26/18 10:45 Serum Immunofixation See note 07/26/18 10:45 Free [place] Light Chains 17.4 mg/L (3.3-19.4) 07/26/18 10:45 Free Lambda Light Chain 5.3 mg/L (5.7-26.3) L 07/26/18 10:45 Free [place]/Lambda Ratio 3.29 (0.26-1.65) H 07/26/18 10:45 Assessment and Plan (1) Multiple myeloma Overview 1. IgG kappa multiple myeloma, intermediate risk, diagnosed after BMA/Bx on 10/31/2017 that shows 85% abnormal plasma cells with complex cytogenetics. PET scan showed some areas of heterogeneous uptake in the marrow. His monoclonal IgG of 3.5 g/dl on 09/23/2017. 2. VRD was started on 11/22/2017: R 15 mg daily, 3 weeks on and 1 week off; Velcade subcutaneously 1.5 mg per sq meter weekly without break. Dexamethasone 20 mg orally once a week on the day of Velcade. He developed a generalized rash with 1 week after taking Revlimid which was then held. Revlimid was re-initiated at 5 mg daily 2 weeks on and 1 week off since 01/05/2018. Velcade was reduced to 1.3 mg per sq meter on 01/10/2018 due to neuropathy, and then per patient's request further decreased to 1 mg per sq meter since 01/23/2018. 3. He consulted Dr. Munoz who recommended regiman with Lenalidomide/Medro/Nihlaro. Based on my understanding, this is an effective regimen based on the phase 3 trial, TOURMALINE-MM1 ([place] Journal of Medicine 2016; 374:1621). Assessment: Patient started the above regimen on 07/30/2018. Up until now patient has tolerated very well. The laboratory tests 11 days after the start of the treatment showed no thrombocytopenia no kidney or liver issues. I talked with him that it is way too early to tell if it is effective or if he is tolerable. Clinically it seems that he is able to tolerate no problems. Today we also talked about possible second opinion to Dr. Price at [facility] with [facility]. I talked with him that it is close to where he lives and he does not have to travel to [place]. Patient is agreeable I would like to have a second opinion with Dr. Price. Plan: 1. Continue Lenalidomide 5 mg daily for days 1-16, then rest Days 17-28 2. Continjue Medrol 20 mg daily, every other day 3. Start Ninlara 3 mg on day 1, 8, 15, Day 1 = 07/30/2018 4. Continue Asprin 81 mg orally daily to present blood clots 5. Continue Acyclovor to 400 mg bid 6. Continue Alpha Lipoic Acid 600 mg orally once daily (do not take on velcade days) 7. RTC MD visit in 2 weeks on 08/27/2018 for follow up visit, CBC, CMP, MM panel 8. Second opinion with Dr. Price at [facility]. (2) Gout Refill Colchicine 0.6 mg x 30#, 0.6 mg tid prn for gout attack.
[2018-08-23 14:19] LABS: Add Manual Diff / Slide Review NO; Basophils Absolute Auto 0 /uL (0-100); Basophils Percent Auto 0.8 % (0-2); Eosinophils Absolute Auto 100 /uL (0-450); Eosinophils Percent Auto 1.2 % (2-4); Hematocrit 41.7 % (41-53); Hemoglobin 13.8 g/dL (13.5-17.5); Lymphocytes Absolute Auto 2000 /uL (1100-4500); Lymphocytes Percent Auto 35.9 % (25-40); Mean Corpuscular HGB Conc 33.1 % (30-36); Mean Corpuscular Hemoglobin 32.5 PG (26-34); Mean Corpuscular Volume 98.2 fL (80-100); Monocytes Absolute Auto 900 /uL (0-900); Monocytes Percent Auto 16.4 % (3-14); Neutrophils Absolute Auto 2500 /uL (1500-7000); Neutrophils Percent Auto 45.7 % (50-75); Platelet Count 189 X10^3/uL (150-400); Red Blood Cell Count 4.25 X10^6/uL (4.5-5.9); White Blood Cell Count 5.5 X10^3/uL (4.5-11.0)
[2018-08-23 14:39] LABS: Alanine Aminotransferase 38 IU/L (21-72); Albumin 4.1 g/dL (3.5-5.0); Albumin Globulin Ratio 1.6 (1.0-2.8); Alkaline Phosphatase 43 U/L (38-126); Aspartate Aminotransferase 26 IU/L (17-59); BUN Creatinine Ratio 18.9 (6-22); Bilirubin Total 0.4 mg/dL (0.2-1.3); Blood Urea Nitrogen 17 mg/dL (9-20); Calcium 8.8 mg/dL (8.4-10.2); Carbon Dioxide 24 mmol/L (22-32); Chloride 107 mmol/L (98-107); Estimated Glomerular Filt Rate > 60.0 mL/min (>60); Globulin 2.6 g/dL (1.7-4.1); Glucose 96 mg/dL (80-110); HEMOLYSIS 26 (0-50); Lactate Dehydrogenase 530 U/L (313-618); Magnesium 2.1 mg/dL (1.6-2.3); Potassium 3.6 mmol/L (3.4-5.1); Sodium 140 mmol/L (137-145); Total Protein 6.7 g/dL (6.3-8.2)
[2018-08-25 14:09] LABS: Beta-2-Microglobulin 1.85 mg/L (< 2.52)
[2018-08-25 14:54] LABS: Immunoglobulin A 106 mg/dL (81-463); Immunoglobulin G, Quantitative 635 mg/dL (694-1618); Immunoglobulin M, Quantitative 8 mg/dL (48-271)
[2018-08-25 15:38] LABS: Free Kappa Light Chain 14.9 mg/L (3.3-19.4); Free Kappa/ Lambda Ratio 2.34 (0.26-1.65); Free Lambda 6.4 mg/L (5.7-26.3)
[2018-08-27 15:51] LABS: Abnormal Protein Band 1 0.3 g/dL (NONE DETECTED); Albumin 3.8 g/dL (3.8-4.8); Alpha 1 Globulin 0.2 g/dL (0.2-0.3); Alpha 2 Globulin 0.6 g/dL (0.5-0.9); Beta 1 Globulin 0.4 g/dL (0.4-0.6); Gamma Globulin 0.6 g/dL (0.8-1.7); Protein, Total 5.9 g/dL (6.1-8.1)
--- NOTE | 2018-08-30 11:03 | P.PNONC_ITS ---
PN -Subjective Interval history: He contacted Sandeep Brownlee, at [place], [place]. Then, he traveled to [place] and saw Dr. Green on Monday (May 11, 2018). The patient was very happy. Dr. Green recommended the following adjustment: Lenalidomide 5 mg daily for days 1-16, then rest Days 17-28 Medrol 20 mg daily, every other day Discontinue Velcade and change to Ninlaro 3 mg orally on Days 1, 8, and 15, Asprin 81 mg orally daily to present blood clots Acyclovor to 400 mg bid Alpha Lipoic Acid 600 mg orally once daily (do not take on velcade days) Econazole cream for foot fungus. Patient started the above regimen on 07/30/2018. Up until now patient has tolerated very well. Patient reported only mild tingling of bottom of the feet for a couple of weeks. He talked with Dr. Camarena about this and was told that things are looking stable. Patient presented here here today for scheduled follow-up visit. Clinically patient said that he has been doing well. He does report that the tingling of the bottom of the feet seems to be persistent even though it is not getting a lot worse. No other new complaints. Oncology History 68 year old male with intermediate risk IgG kappa multiple myeloma with a monoclonal IgG of 3.5 gram/deciliter and a serum free light chain that is greater than 100 and as well as a bone marrow biopsy that shows 85% infiltration by abnormal plasma cells. He had a free kappa of approximately 350 and free lambda of 3.5 with a ratio of 100 and baseline. He does have a mild anemia with a hemoglobin level of 11.5. His skeletal survey did not show any lytic lesions but his PET scan showed some areas of heterogeneous uptake in the marrow. Borderline normal creatinine 1.2 and calcium at baseline. 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 FISH panel negative for high risk abnormalities including chromosome 17 and chromosome 14 after a shins. Initial treatment with VRD was started on November 22, 2017 with Revlimid starting with a few days delay. Revlimid for initial cycle was 15 mg by mouth daily, three weeks on and 1 week off; Velcade subcutaneously 1.5 mg per sq meter weekly without break. Dexamethasone 20 mg orally once a week on the day of Velcade. Patient developed a generalized rash with 1 week after taking Revlimid which was then held. Revlimid was re-initiated at a lower dosage of 5 mg daily 2 weeks on and 1 week off since January 05, 2018 and he is able to tolerate without any rash. Patient also developed early onset of symptoms of peripheral neuropathy likely due to Velcade, therefore the dosage was reduced to 1.3 mg per sq meter on 01/10/2018 and then per patient's request further decreased to 1 mg per sq meter since 01/23/2018. The patient was evaluated by Dr. Patricia Henriquez at [facility] on 03/07/2018. Dr. Patricia Henriquez had a long discussion with the patient regarding the treatment course with RVD. The regimen RVD was also adjusted as follows: Revlimid 10 mg once a day 3 weeks on and 1 week off, Velcade 1 milligrams/m2 weekly 3 weeks on and 1 week off and dexamethasone 20 mg the day of the Velcade and the day after the Velcade injection. But later, the patient decided that he does not like to have the stem cell collected. He refused recommendations from [facility]. He also refused infusion of Zometa. - Patient Self-Reported Symptoms SR Constitution: Fatigue/Malaise SR eye issues: Vision changes, Eye pain SR ears, nose, mouth, throat issues: Ears ringing SR Cardiovascular issues: Extreme swelling SR Genitourinary issues: Frequent urination SR Musculoskeletal issues: Joint pain or swelling, Difficulty walking SR Neuro issues: Numbness or tingling - Additional ROS All systems PM: reviewed and no additional remarkable complaints except as stated Home Medications and Allergies Home Medications Medication Instructions Recorded Confirmed Type lisinopril 10 mg PO QDAY #0 05/31/16 08/30/18 History clotrimazole 10 mg MUCOUS MEMBRANE 5XD 03/29/18 08/30/18 History colchicine 0.6 mg PO DAILY 04/26/18 08/30/18 History Revlimid 5 mg PO DAILY #16 cap 06/14/18 08/30/18 Rx acyclovir 400 mg PO BID 06/14/18 08/30/18 History alpha lipoic acid 600 mg PO DAILY 06/14/18 08/30/18 History aspirin 81 mg PO DAILY 06/14/18 08/30/18 History ixazomib [Ninlaro] 3 mg PO 06/14/18 History methylprednisolone [Medrol] 20 mg PO Q OTHER DAY #30 tab 06/25/18 08/30/18 Rx calcium carbonate-vitamin D3 1 tab PO DAILY 07/26/18 08/30/18 History [Calcium 500 With D] cholecalciferol (vitamin D3) 1,000 DAILY 07/26/18 History [Vitamin D3] methylprednisolone [Medrol] 20 mg PO Q OTHER DAY #75 tab 08/13/18 08/30/18 Rx Allergies Allergy/AdvReac Type Severity Reaction Status Date / Time No Known Drug Allergies Allergy Verified 09/22/17 16:09 Exam Vital signs: Last Vital Signs Temp 97.6 F 08/30/18 16:34 Pulse 72 08/30/18 16:34 Resp 18 08/30/18 16:34 BP 165/88 H 08/30/18 16:34 Pulse Ox 96 08/30/18 16:34 ECOG 1 Narrative: Constitutional: WDWN, NAD, average body habitus, well groomed, pleasant and cooperative. HEENT: NCAT, EOMI, PERRLA, anicteric sclera, no hearing difficulty Neck: Supple, symmetrical, and tracheal midline; No palpable thyromegaly and no palpable lymph nodes. Respiratory: No use of accessory muscles. Clear to auscultation Cardiovascular: Regular rate and rhythm, S1 and S2 normal, no murmurs gallops or rubs. Abdomen: Soft, nontender, non-distended, bowel sounds normal, no palpable organomegaly, no hernia, no palpable masses. Lower extremities: No palpable pedal edema. Lymphatic: no palpable lymph nodes in the neck, axillae Musculoskeletal: normal gait and station, no clubbing, no cyanosis, no pitting edema. Skin: no rashes, no ulcers, no petechiae Neurological: Awake and alert and oriented x3. CN II-XII grossly intact. No focal motor or sensory deficit. Psychiatric: Good judgment, good insight, normal affect, normal thought process, cooperative, no depression, no anxiety. Results - Labs Laboratory Last Values WBC 5.5 X10^3/uL (4.5-11.0) 08/23/18 13:44 RBC 4.25 X10^6/uL (4.5-5.9) L 08/23/18 13:44 Hgb 13.8 g/dL (13.5-17.5) 08/23/18 13:44 Hct 41.7 % (41-53) 08/23/18 13:44 MCV 98.2 fL (80-100) 08/23/18 13:44 MCH 32.5 PG (26-34) 08/23/18 13:44 MCHC 33.1 % (30-36) 08/23/18 13:44 RDW 14.0 % (11.6-14.8) 08/23/18 13:44 Plt Count 189 X10^3/uL (150-400) 08/23/18 13:44 Neut % (Auto) 45.7 % (50-75) L 08/23/18 13:44 Lymph % (Auto) 35.9 % (25-40) 08/23/18 13:44 [place] % (Auto) 16.4 % (3-14) H 08/23/18 13:44 Eos % (Auto) 1.2 % (2-4) L 08/23/18 13:44 Baso % (Auto) 0.8 % (0-2) 08/23/18 13:44 Neut # (Auto) 2500 /uL (1236-5656) 08/23/18 13:44 Lymph # (Auto) 2000 /uL (2436-7333) 08/23/18 13:44 [place] # (Auto) 900 /uL (0-900) 08/23/18 13:44 Eos # (Auto) 100 /uL (0-450) 08/23/18 13:44 Baso # (Auto) 0 /uL (0-100) 08/23/18 13:44 Sodium 140 mmol/L (137-145) 08/23/18 13:44 Potassium 3.6 mmol/L (3.4-5.1) 08/23/18 13:44 Chloride 107 mmol/L (98-107) 08/23/18 13:44 Carbon Dioxide 24 mmol/L (22-32) 08/23/18 13:44 BUN 17 mg/dL (9-20) 08/23/18 13:44 Creatinine 0.90 mg/dL (0.66-1.25) 08/23/18 13:44 Estimated GFR > 60.0 mL/min (>60) 08/23/18 13:44 BUN/Creatinine Ratio 18.9 (6-22) 08/23/18 13:44 Glucose 96 mg/dL (80-110) 08/23/18 13:44 Calcium 8.8 mg/dL (8.4-10.2) 08/23/18 13:44 Magnesium 2.1 mg/dL (1.6-2.3) 08/23/18 13:44 Total Bilirubin 0.4 mg/dL (0.2-1.3) 08/23/18 13:44 AST 26 IU/L (17-59) 08/23/18 13:44 ALT 38 IU/L (21-72) 08/23/18 13:44 Alkaline Phosphatase 43 U/L (38-126) 08/23/18 13:44 Lactate Dehydrogenase 530 U/L (313-618) 08/23/18 13:44 Serum Total Protein 5.9 g/dL (6.1-8.1) L 08/23/18 13:44 Total Protein 6.7 g/dL (6.3-8.2) 08/23/18 13:44 Albumin 3.8 g/dL (3.8-4.8) 08/23/18 13:44 Globulin 2.6 g/dL (1.7-4.1) 08/23/18 13:44 Albumin/Globulin Ratio 1.6 (1.0-2.8) 08/23/18 13:44 Enlza-0-Zobtlhsez 0.2 g/dL (0.2-0.3) 08/23/18 13:44 Beqse-6-Fusipwgbk 0.6 g/dL (0.5-0.9) 08/23/18 13:44 Amwi-9-Qrlzbdlw 0.4 g/dL (0.4-0.6) 08/23/18 13:44 Xtit-9-Erjtbbga 0.3 g/dL (0.2-0.5) 08/23/18 13:44 Upin-8-Xotusqbhntpgo 1.85 mg/L (< 2.52) 08/23/18 13:44 Gamma Globulins 0.6 g/dL (0.8-1.7) L 08/23/18 13:44 Abnorm Protein Band 1 0.3 g/dL (NONE DETECTED) A 08/23/18 13:44 Abnorm Protein Band 2 Not Reportable 08/23/18 13:44 Abn Gamma Band 3 Serum Not Reportable 08/23/18 13:44 PEP Comment See note 08/23/18 13:44 TSH 2.90 uIU/mL (0.47-4.68) 08/23/18 13:44 Urine Total Volume 1300 mL 05/29/18 12:14 U Tot Protein 24h, Calc 130 mg/24 h (<150) 05/29/18 12:14 Protein/Creatinin Ratio 69 mg/g creat (<115) 05/29/18 12:14 Urine Albumin 26 % 05/29/18 12:14 U Random a-6-Ifvegumf 5 % 05/29/18 12:14 U Rxpiz-6-Nrctecnc 15 % 05/29/18 12:14 U Beta Globulin 28 % 05/29/18 12:14 U Gamma Globulin 26 % 05/29/18 12:14 Urine PEP Interpret See note 05/29/18 12:14 Urine Creatinine 24 Hr 1.88 g/24 h (0.50-2.15) 05/29/18 12:14 IgG, Serum (MS) 635 mg/dL (694-1618) L 08/23/18 13:44 IgA 106 mg/dL (81-463) 08/23/18 13:44 IgM 8 mg/dL (48-271) L 08/23/18 13:44 ROMA & SPEP Interp See note 08/23/18 13:44 Serum Immunofixation See note 07/26/18 10:45 Free [place] Light Chains 14.9 mg/L (3.3-19.4) 08/23/18 13:44 Free Lambda Light Chain 6.4 mg/L (5.7-26.3) 08/23/18 13:44 Free [place]/Lambda Ratio 2.34 (0.26-1.65) H 08/23/18 13:44 Assessment and Plan (1) Multiple myeloma Overview 1. IgG kappa multiple myeloma, intermediate risk, diagnosed after BMA/Bx on 10/31/2017 that shows 85% abnormal plasma cells with complex cytogenetics. PET scan showed some areas of heterogeneous uptake in the marrow. His monoclonal IgG of 3.5 g/dl on 09/23/2017. 2. VRD was started on 11/22/2017: R 15 mg daily, 3 weeks on and 1 week off; Velcade subcutaneously 1.5 mg per sq meter weekly without break. Dexamethasone 20 mg orally once a week on the day of Velcade. He developed a generalized rash with 1 week after taking Revlimid which was then held. Revlimid was re-initiated at 5 mg daily 2 weeks on and 1 week off since 01/05/2018. Velcade was reduced to 1.3 mg per sq meter on 01/10/2018 due to neuropathy, and then per patient's request further decreased to 1 mg per sq meter since 01/23/2018. 3. He [address] Munoz who recommended regiman with Lenalidomide/Medro/Nihlaro. Based on my understanding, this is an effective regimen based on the phase 3 trial, TOURMALINE-MM1 ([place] Journal of Medicine 2016; 374:1621). Assessment: Patient started the above regimen on 07/30/2018. Up until now patient has tolerated very well. I reviewed the multiple myeloma panel with the patient. There is trace IgG kappa identified by immunofixation. The M spike is about 0.3 grams/deciliter about the same compared to his previous visit. No other new findings. I talked with the patient that I think the regimen is active. And I will continue current treatment without any changes. Plan: 1. Continue Lenalidomide 5 mg daily for days 1-16, then rest Days 17-28 2. Continjue Medrol 20 mg daily, every other day 3. Start Ninlara 3 mg on day 1, 8, 15, Day 1 = 07/30/2018 4. Continue Asprin 81 mg orally daily to present blood clots 5. Continue Acyclovor to 400 mg bid 6. Continue Alpha Lipoic Acid 600 mg orally once daily (do not take on velcade days) 7. RTC MD visit in 4 weeks follow up visit, CBC, CMP, MM panel 8. Second opinion with Dr. Price at [facility], pending (2) Gout Refill Colchicine 0.6 mg x 30#, 0.6 mg tid prn for gout attack.
--- NOTE | 2018-08-30 16:10 | ONC.SCHED ---
referral sent to [facility]
[2018-08-30 16:34] VITALS: BP 165/88; PULSE 72; RESP 18; TEMP 36.4; O2SAT 96
[2018-09-27 14:44] LABS: Add Manual Diff / Slide Review NO; Basophils Absolute Auto 100 /uL (0-100); Basophils Percent Auto 0.6 % (0-2); Eosinophils Absolute Auto 100 /uL (0-450); Eosinophils Percent Auto 0.9 % (2-4); Hematocrit 42.5 % (41-53); Hemoglobin 14.5 g/dL (13.5-17.5); Lymphocytes Absolute Auto 1100 /uL (1100-4500); Lymphocytes Percent Auto 13.3 % (25-40); Mean Corpuscular HGB Conc 34.2 % (30-36); Mean Corpuscular Hemoglobin 33.3 PG (26-34); Mean Corpuscular Volume 97.3 fL (80-100); Monocytes Absolute Auto 600 /uL (0-900); Monocytes Percent Auto 7.8 % (3-14); Neutrophils Absolute Auto 6300 /uL (1500-7000); Neutrophils Percent Auto 77.4 % (50-75); Platelet Count 212 X10^3/uL (150-400); Red Blood Cell Count 4.37 X10^6/uL (4.5-5.9); Red Cell Distribution Width 14.7 % (11.6-14.8); White Blood Cell Count 8.1 X10^3/uL (4.5-11.0)
[2018-09-27 14:47] LABS: Alanine Aminotransferase 25 IU/L (21-72); Albumin 4.3 g/dL (3.5-5.0); Albumin Globulin Ratio 1.7 (1.0-2.8); Alkaline Phosphatase 53 U/L (38-126); Aspartate Aminotransferase 21 IU/L (17-59); BUN Creatinine Ratio 18.8 (6-22); Bilirubin Total 0.6 mg/dL (0.2-1.3); Blood Urea Nitrogen 15 mg/dL (9-20); Calcium 9.4 mg/dL (8.4-10.2); Carbon Dioxide 25 mmol/L (22-32); Chloride 105 mmol/L (98-107); Estimated Glomerular Filt Rate > 60.0 mL/min (>60); Globulin 2.6 g/dL (1.7-4.1); Glucose 113 mg/dL (80-110); HEMOLYSIS < 15 (0-50); Lactate Dehydrogenase 449 U/L (313-618); Potassium 3.9 mmol/L (3.4-5.1); Sodium 140 mmol/L (137-145); Total Protein 6.9 g/dL (6.3-8.2)
[2018-09-29 13:06] LABS: Free Kappa Light Chain 16.1 mg/L (3.3-19.4); Free Kappa/ Lambda Ratio 2.53 (0.26-1.65); Free Lambda 6.3 mg/L (5.7-26.3)
[2018-09-29 13:07] LABS: Beta-2-Microglobulin 1.75 mg/L (< 2.52)
[2018-09-29 14:25] LABS: Immunoglobulin A 112 mg/dL (81-463); Immunoglobulin G, Quantitative 606 mg/dL (694-1618)
[2018-09-29 14:26] LABS: Immunoglobulin M, Quantitative 8 mg/dL (48-271)
[2018-10-02 22:09] LABS: Abnormal Protein Band 1 0.2 g/dL (NONE DETECTED); Albumin 4.1 g/dL (3.8-4.8); Alpha 1 Globulin 0.3 g/dL (0.2-0.3); Alpha 2 Globulin 0.6 g/dL (0.5-0.9); Beta 1 Globulin 0.4 g/dL (0.4-0.6); Gamma Globulin 0.6 g/dL (0.8-1.7); Protein, Total 6.3 g/dL (6.1-8.1)
--- NOTE | 2018-11-14 10:34 | PC.NURSE ---
Received call from patient, patient has transferred care to a provider at [place] provider would be prescribing patient's Revlimid and Ninlaro prescriptions. Called [facility] and removed Revlimid authorization number obtained on 11-13-18 so new prescriber could obtain new auth number. Garth Mai [facility]
== END ==
PROVIDERS: PCP Internal Medicine Hematology; Visit Provider Internal Medicine Hematology & Oncology
DX: C90.00 Multiple myeloma not having achieved remission (principal)
CPT/HCPCS: 36415; 80053; 82232; 82784; 83615; 83735; 83883; 84155; 84156; 84165; 84166; 84443; 85025; 86334; 86335; 96401; 99214; 99215; J9041

== ENCOUNTER 2020-03-03 16:05 | Emergency (ER) | payer MEDICARE, OTHER, SELFPAY ==
[2017-09-22 18:31] VITALS: BMI 31.3
[2020-03-03] VITALS (16 sets, daily range): BP systolic 128–173; BP diastolic 58–83; PULSE 79–93; RESP 15–29; TEMP 36.9–38.2; O2SAT 92–94; BMI 29.7
--- NOTE | 2020-03-03 18:23 | ED.WEAKNESS ---
HPI - Weakness General Chief complaint: Fever Stated complaint: covid positive, can't eat/drink,weak Time Seen by Provider: 03/03/20 18:05 Source: patient Mode of arrival: Wheelchair Limitations: no limitations History of Present Illness HPI Narrative: 70-year-old male former smoker with multiple myeloma presents with a chief complaint decreased appetite and generalized weakness over the past week or so. He is concerned about the function of his kidneys given his chronic health problems and states that he is known to be COVID positive. He denies any headache or sore throat. He has no chest pain, shortness of breath or cough. He denies any nausea or vomiting. He states that he had a COVID test 8 days ago after some out of town travel. He states the test was originally arranged as a precaution but the day of the test he developed a dry and hacking cough and had some sore throat, this is long since resolved. Since then he has been laying low at home and under quarantine. MD Complaint: generalized weakness Onset (ago): day(s) Duration: constant Location: generalized Migration: none Severity: mild Relieving factors: none Exacerbating factors: none Context: recent illness Associated symptoms: denies other symptoms Related Data Home Medications Medication Instructions Recorded Confirmed lisinopril 10 mg PO QDAY #0 05/31/16 08/30/18 clotrimazole 10 mg MUCOUS MEMBRANE 5XD 03/29/18 08/30/18 colchicine 0.6 mg PO DAILY 04/26/18 08/30/18 acyclovir 400 mg PO BID 06/14/18 08/30/18 alpha lipoic acid 600 mg PO DAILY 06/14/18 08/30/18 aspirin 81 mg PO DAILY 06/14/18 08/30/18 calcium carbonate-vitamin D3 1 tab PO DAILY 07/26/18 08/30/18 [Calcium 500 With D] cholecalciferol (vitamin D3) 1,000 DAILY 07/26/18 [Vitamin D3] Previous Rx's Medication Instructions Recorded methylprednisolone [Medrol] 20 mg PO Q OTHER DAY #30 tab 06/25/18 methylprednisolone [Medrol] 20 mg PO Q OTHER DAY #75 tab 08/13/18 Revlimid 5 mg PO DAILY #16 cap 10/15/18 ixazomib [Ninlaro] 3 mg PO WEEKLY #3 cap 10/15/18 Allergies Allergy/AdvReac Type Severity Reaction Status Date / Time No Known Drug Allergies Allergy Verified 03/03/20 16:12 Review of Systems Constitutional Constitutional: Denies chills, Denies fatigue, Denies fever(s), Denies frequent falls, Denies lethargy, Reports poor appetite and Reports weakness Eyes Eyes: Denies change in vision, Denies eye discharge, Denies irritation and Denies loss of vision ENT Ears, Nose, Mouth, and Throat: Denies change in voice, Denies dizziness, Denies neck pain, Denies sore throat and Denies throat swelling Cardiovascular Cardiovascular: Denies chest pain, Denies irregular heart rhythm, Denies lightheadedness, Denies palpitations, Denies dyspnea, Denies dyspnea on exertion and Denies orthopnea Respiratory Respiratory: Denies cough, Denies dyspnea, Denies dyspnea on exertion and Denies wheezing Gastrointestinal Gastrointestinal: Denies abdominal pain, Denies change in bowel habits, Denies diarrhea, Denies nausea and Denies vomiting Musculoskeletal Musculoskeletal: Denies neck pain and Denies numbness Integumentary/Breasts Skin/Breast: Denies pruritus, Denies erythema, Denies rash and Denies wounds Neurologic Neurologic: Denies behavioral changes, Denies confusion, Denies dizziness, Denies frequent falls, Denies loss of vision, Denies numbness and Reports weakness Psychiatric Psychiatric: Denies anxiety, Denies behavioral changes, Denies confusion, Denies depression, Denies homicidal ideation and Denies suicidal ideation Endocrine Endocrine: Denies fatigue, Denies flushing and Denies palpitations Hematologic/Lymphatic Hematologic/Lymphatic: Denies easy bruising Allergic/Immunologic Allergic/Immunologic: Denies urticaria, Denies throat swelling and Denies wheezing Patient History Medical History Anemia Gout HTN (hypertension) Hyperlipidemia Old torn meniscus of knee Shingles Social History household members: spouse Smoking Status: Former smoker alcohol intake: current Smoking Status: Former smoker alcohol intake frequency: 0-2 drinks per day Alcohol type: wine Substance Use Type: does not use Exam Narrative Exam Narrative: GENERAL: [70] year old patient appears stated age. Well-nourished, well-developed patient, in mild distress. HEAD: Atraumatic. Normocephalic. EYES: Pupils equal round and reactive. Extraocular motions intact. No scleral icterus. No injection or drainage. ENT: Nose without bleeding, purulent drainage. Throat without erythema, tonsillar hypertrophy or exudate. Airway patent. NECK: Trachea midline. Non tender CARDIOVASCULAR: Regular rate and rhythm without murmurs, gallops, or rubs. RESPIRATORY: Clear to auscultation. Breath sounds equal bilaterally. No wheezes, rales, or rhonchi. GASTROINTESTINAL: Abdomen soft, non-tender, nondistended. EXTREMITIES: No edema or joint tenderness. BACK: Nontender without deformity or crepitance. No flank tenderness. NEURO: AOx3. SKIN: No rash or erythema of visible areas Initial Vital Signs Initial Vital Signs: Vital Signs Temperature 99.4 F 03/03/20 16:12 Pulse Rate 85 03/03/20 16:12 Respiratory Rate 16 03/03/20 16:12 Blood Pressure 150/74 H 03/03/20 16:12 Pulse Oximetry 94 03/03/20 16:12 Course Orders Ordered: ED Orders 03/03/20 18:45 Blood Culture Stat Discontinued Medications Acetaminophen (Acetaminophen 325 Mg Tablet) 975 mg PO NOW ONE Stop: 03/03/20 21:10 Last Admin: 03/03/20 21:17 Dose: 975 mg Documented by: GRICELDA Vital Signs Vital signs: Vital Signs - 8 hr 03/03/20 19:30 03/03/20 20:00 03/03/20 20:21 Temperature 99.7 F H 100.8 F H Pulse Rate 89 93 H Respiratory Rate 29 H 26 H Blood Pressure 146/71 H 146/64 H Pulse Oximetry 94 92 03/03/20 20:30 03/03/20 21:00 03/03/20 21:17 Temperature 99.9 F H 99.9 F H Pulse Rate 86 84 Respiratory Rate 17 15 Blood Pressure 162/78 H 134/66 Pulse Oximetry 93 94 03/03/20 21:30 03/03/20 22:00 03/03/20 22:30 Temperature Pulse Rate 82 90 80 Respiratory Rate 26 H 25 H 21 Blood Pressure 140/75 128/58 L 137/58 L Pulse Oximetry 93 93 92 03/03/20 23:00 03/03/20 23:30 03/03/20 23:36 Temperature 98.5 F Pulse Rate 79 80 Respiratory Rate 22 17 Blood Pressure 129/66 158/71 H Pulse Oximetry 93 94 03/03/20 23:51 Temperature 98.5 F Pulse Rate Respiratory Rate Blood Pressure Pulse Oximetry MDM - Weakness Lab Data Result diagrams: 03/03/20 18:00 03/03/20 18:00 Labs: Lab Results 03/03/20 03/03/20 Range/Units 18:00 18:00 WBC 2.8 L (4.5-11.0) X10^3/uL RBC 4.38 L (4.5-5.9) X10^6/uL Hgb 15.0 (13.5-17.5) g/dL Hct 43.3 (41-53) % MCV 98.9 (80-100) fL MCH 34.2 H (26-34) PG MCHC 34.6 (30-36) % RDW 13.3 (11.6-14.8) % Plt Count 109 L (150-400) X10^3/uL Neut % (Auto) 68.6 (50-75) % Lymph % (Auto) 20.4 L (25-40) % [place] % (Auto) 10.5 (3-14) % Eos % (Auto) 0.1 L (2-4) % Baso % (Auto) 0.4 (0-2) % Neut # (Auto) 1900 (9856-6531) /uL Lymph # (Auto) 600 L (3963-3675) /uL [place] # (Auto) 300 (0-900) /uL Eos # (Auto) 0 (0-450) /uL Baso # (Auto) 0 (0-100) /uL Sodium 133 L (137-145) mmol/L Potassium 3.7 (3.4-5.1) mmol/L Chloride 103 (98-107) mmol/L Carbon Dioxide 26 (22-32) mmol/L BUN 18 (9-20) mg/dL Creatinine 0.92 (0.66-1.25) mg/dL Estimated GFR > 60.0 (>60) mL/min BUN/Creatinine Ratio 19.6 (6-22) Glucose 126 H (80-110) mg/dL Calcium 8.6 (8.4-10.2) mg/dL Magnesium 2.2 (1.6-2.3) mg/dL Total Bilirubin 0.7 (0.2-1.3) mg/dL AST 51 (17-59) IU/L ALT 51 H (<50) IU/L Alkaline Phosphatase 78 (38-126) U/L Total Creatine Kinase < 20 L (55-170) U/L CK-MB (CK-2) TNP CK-MB (CK-2) Rel Index TNP Troponin I < 0.012 (0.01-0.034) ng/mL Total Protein 7.1 (6.3-8.2) g/dL Albumin 3.7 (3.5-5.0) g/dL Globulin 3.4 (1.7-4.1) g/dL Albumin/Globulin Ratio 1.1 (1.0-2.8) Lipase 94 (23-300) U/L Urine Dip Bedside Urine Glucose Negative Bedside Urine Bilirubin - Negative Bedside Urine Ketone +/- 5 Urine Specific Edson 1.025 Bedside Urine Occult Blood - Negative Bedside Urine pH 6.0 Bedside Urine Protein + 30 Bedside Urine Urobilinogen - Negative Bedside Urine Nitrite - Negative Bedside Urine Leukocytes - Negative Esterase MDM Narrative Medical decision making narrative: Patient feels much better after her fluids and reassurance. We had extensive discussion regarding indications for hospitalization and the reassuring findings for us today. He has no shortness of breath or supplemental oxygen requirements. His labs and imaging are very reassuring. His initial urine had a slightly elevated specific gravity consistent with our concern for mild dehydration. He is improved after IV fluids, return precautions given and questions answered to his apparent satisfaction. Discharge Plan Departure Patient Disposition: Home Clinical Impression: COVID-19, Weakness Instructions: DI for Dehydration -- Adult, Coronavirus Disease 2019 Activity Restrictions/Additional Instructions: *You have been diagnosed with [COVID-19 with mild symptoms, generalized weakness and mild dehydration] *What to do: * continue to take medications as directed *Follow up with your primary care provider in 2-3 days, call for an appointment. Let them know you were seen in the Emergency Department and that we ask that you be seen in follow up *Return to ER if you should have any new, worsening or concerning symptoms, such as [increased work of breathing, chest pain, worsening fatigue or weakness or other bothersome symptoms *What to do: * per recommendations from the CDC and the [facility] Department of Health * stay home except to get medical care. Restrict activities outside your home, except for getting medical care. Do not go to work, school, or public areas. Avoid using public transportation, ride sharing, or taxis. * separate yourself from other people in your home. * call ahead before visiting your doctor * Wear a facemask * Cover your coughs and sneezes * Clean your hands often * Avoid sharing household items * Clean all high-touch services every day * Monitor your symptoms and seek prompt medical attention if your illness is worsening, particularly with difficulty in breathing. Discussed continuing home isolation * for individuals with symptoms who are confirmed or suspected cases of COVID-19 and are directed to care for themselves at home, discontinue home isolation under the following conditions: 1. At least 72 hours have passed since recovery, defined as resolution of fever without the use of fever reducing medications, and improvement in respiratory symptoms (cough, shortness of breath) AND, 2. At least 7 days have passed since symptoms 1st appeared Individuals with laboratory confirmed COVID-19 who have not had any symptoms may discontinue home isolation when at least 7 days have passed since the date of their 1st COVID-19 diagnostic test and have had no subsequent illness ] Prescriptions: No Action lisinopril 20 MG tablet 10 mg PO QDAY Qty: 0 RF: 0 clotrimazole 10 mg Panfilo 10 mg MUCOUS MEMBRANE 5XD RF: 0 colchicine 0.6 mg Tablet 0.6 mg PO DAILY RF: 0 acyclovir 400 mg Tablet 400 mg PO BID RF: 0 aspirin 81 mg Tablet,Chewable 81 mg PO DAILY RF: 0 alpha lipoic acid 600 mg Capsule 600 mg PO DAILY RF: 0 methylprednisolone [Medrol] 4 mg Tablet 20 mg PO Q OTHER DAY Qty: 30 RF: 0 cholecalciferol (vitamin D3) [Vitamin D3] 1,000 unit Capsule 1,000 DAILY RF: 0 calcium carbonate-vitamin D3 [Calcium 500 With D] 500 mg(1,250mg) -400 unit Tablet 1 tab PO DAILY RF: 0 methylprednisolone [Medrol] 4 mg Tablet 20 mg PO Q OTHER DAY Qty: 75 RF: 6 Revlimid 5 mg Capsule 5 mg PO DAILY Qty: 16 RF: 0 Ninlaro 3 mg Capsule 3 mg PO WEEKLY Qty: 3 RF: 0 Referrals: Racquel Henriquez MD [Primary Care Provider] -
[2020-03-03 18:26] LABS: Add Manual Diff / Slide Review NO; Basophils Absolute Auto 0 /uL (0-100); Basophils Percent Auto 0.4 % (0-2); Eosinophils Absolute Auto 0 /uL (0-450); Eosinophils Percent Auto 0.1 % (2-4); Hematocrit 43.3 % (41-53); Lymphocytes Absolute Auto 600 /uL (1100-4500); Lymphocytes Percent Auto 20.4 % (25-40); Mean Corpuscular HGB Conc 34.6 % (30-36); Mean Corpuscular Hemoglobin 34.2 PG (26-34); Mean Corpuscular Volume 98.9 fL (80-100); Monocytes Absolute Auto 300 /uL (0-900); Monocytes Percent Auto 10.5 % (3-14); Neutrophils Absolute Auto 1900 /uL (1500-7000); Neutrophils Percent Auto 68.6 % (50-75); Platelet Count 109 X10^3/uL (150-400); Red Blood Cell Count 4.38 X10^6/uL (4.5-5.9); Red Cell Distribution Width 13.3 % (11.6-14.8); White Blood Cell Count 2.8 X10^3/uL (4.5-11.0)
[2020-03-03 18:35] LABS: Alanine Aminotransferase 51 IU/L (<50); Albumin 3.7 g/dL (3.5-5.0); Albumin Globulin Ratio 1.1 (1.0-2.8); Alkaline Phosphatase 78 U/L (38-126); Aspartate Aminotransferase 51 IU/L (17-59); BUN Creatinine Ratio 19.6 (6-22); Bilirubin Total 0.7 mg/dL (0.2-1.3); Blood Urea Nitrogen 18 mg/dL (9-20); Calcium 8.6 mg/dL (8.4-10.2); Carbon Dioxide 26 mmol/L (22-32); Chloride 103 mmol/L (98-107); Creatine Kinase < 20 U/L (55-170); Estimated Glomerular Filt Rate > 60.0 mL/min (>60); Globulin 3.4 g/dL (1.7-4.1); Glucose 126 mg/dL (80-110); HEMOLYSIS 15 (0-50); Lipase 94 U/L (23-300); Magnesium 2.2 mg/dL (1.6-2.3); Potassium 3.7 mmol/L (3.4-5.1); Sodium 133 mmol/L (137-145); Total Protein 7.1 g/dL (6.3-8.2)
[2020-03-03 18:46] LABS: Troponin I < 0.012 ng/mL (0.01-0.034)
[2020-03-03] MEDS: ACETAMINOPHEN 325 MG TABLET 975 MG PO (21:17)
== END 2020-03-04 00:05 | disposition home or self-care (01) ==
PROVIDERS: Emergency Provider Emergency Medicine; PCP Internal Medicine Hematology
DX: U07.1 COVID-19 (principal); R53.1 Weakness
CPT/HCPCS: 36415; 80053; 81003; 82550; 83690; 83735; 84484; 85025; 87040; 99281; 99283

== ENCOUNTER 2022-09-05 16:50 | Emergency (ER) | payer MEDICARE, OTHER, SELFPAY ==
[2017-09-22 18:31] VITALS: BMI 31.3
[2022-09-05 17:02] VITALS: BP 181/95; PULSE 68; RESP 18; TEMP 37.2; O2SAT 95; BMI 29.7
--- NOTE | 2022-09-05 17:24 | DI.RAD.S_ITS ---
PROCEDURE: XR CHEST 1V INDICATIONS: chest pain TECHNIQUE: One view of the chest was acquired. COMPARISON: [facility], [place], XR CHEST 1V, 09/22/2017, 16:16. FINDINGS: Surgical changes and devices: None. Lungs and pleura: Lungs are clear. No pleural effusions or pneumothorax. Mediastinum: Mediastinal contours appear normal. Heart size is normal. Bones and chest wall: No suspicious bony lesions. Overlying soft tissues appear unremarkable. IMPRESSION: No acute process. Dictated by: Kendall Disla M.D. on 09/05/2022 at 16:57 Approved by: Kendall Disla M.D. on 09/05/2022 at 16:58
--- NOTE | 2022-09-05 17:51 | PC.NURSE ---
Patient declines chest pain, dizziness, or other symptoms associated with elevated blood pressure. Reports he was recently hospitalized at for a tumor and came home a week ago. Educated pt on orders for labs and ekg r/t elevated blood pressure and potential risks, pt declines lab work and ekg at this time. States I just want a medication to improve my blood pressure and I will follow up with my doctor tomorrow.
== END 2022-09-05 19:36 | disposition left against medical advice (07) ==
PROVIDERS: Emergency Provider Emergency Medicine; PCP Internal Medicine Hematology
DX: I10 Essential (primary) hypertension (principal); Z87.891 Personal history of nicotine dependence
CPT/HCPCS: 71045; 99281